=== PATIENT | female | born 1975 | race African-American/Black ===

== ENCOUNTER 2016-04-25 13:53 | Emergency (ER) | payer OTHER ==
--- NOTE | 2016-04-25 14:32 | ER Document Report ---
ED Medical Screen (RME) - General Stated Complaint: VOMITING,EXTREME NOSE BLEEDS Mode of Arrival: Ambulatory Information source: Patient Notes: Patient c/o of heart palpitations since Monday. Pt reports n/v today with lower pelvic pressure. Pt with nosebleed early this week and today. Patient denies any fever. Patient is currently 16 weeks . hx: Hypertension TRAVEL OUTSIDE OF THE [place] IN LAST 30 DAYS: No - Related Data Allergies/Adverse Reactions: No Known Allergies Allergy (Verified 12/25/15 20:28) Past Medical History - Past Medical History Cardiac Medical History: Reports: Hx Hypertension - medicated Denies: Hx Heart Attack Pulmonary Medical History: Reports: Hx Asthma - seasonal allergies can cause wheezing. Neurological Medical History: Denies: Hx Cerebrovascular Accident, Hx Seizures GI Medical History: Denies: Hx Hepatitis, Hx Hiatal Hernia, Hx Ulcer Infectious Medical History: Denies: Hx Hepatitis Past Surgical History: Denies: Hx Hysterectomy, Hx Mastectomy, Hx Open Heart Surgery, Hx Pacemaker - Immunizations Hx Diphtheria, Pertussis, Tetanus Vaccination: Yes Physical Exam - Vital signs Vitals: Temp Pulse Resp BP Pulse Ox 98.0 F 92 20 137/83 H 100 04/25/16 14:28 04/25/16 14:28 04/25/16 14:28 04/25/16 14:28 04/25/16 14:28 - Abdominal Tenderness: Tender - Lower pelvic Course - Vital Signs Vital signs: Temp Pulse Resp BP Pulse Ox 98.0 F 92 20 137/83 H 100 04/25/16 14:28 04/25/16 14:28 04/25/16 14:28 04/25/16 14:28 04/25/16 14:28
[2016-04-25 15:16] LABS: ABSOLUTE BASOPHILS # (AUTO) 0.1 10^3/uL (0.0-0.2); ABSOLUTE EOSINOPHILS # (AUTO) 0.3 10^3/uL (0.0-0.6); ABSOLUTE LYMPHOCYTES (AUTO) 2.2 10^3/uL (0.5-4.7); ABSOLUTE MONOCYTES (AUTO) 0.7 10^3/uL (0.1-1.4); ABSOLUTE NEUT (AUTO) 7.2 10^3/uL (1.7-8.2); BASOPHILS % (AUTO) 0.6 % (0-2); EOSINOPHILS % (AUTO) 2.5 % (0-6); HEMATOCRIT 38.3 % (36.0-47.0); HEMOGLOBIN 12.3 g/dL (12.0-15.5); HGB HCT DIFFERENCE -1.4; LYMPHOCYTES % (AUTO) 21.2 % (13-45); MEAN CORPUSCULAR HEMOGLOBIN 29.5 pg (27.0-33.4); MEAN CORPUSCULAR HGB CONC 32.2 g/dL (32.0-36.0); MEAN CORPUSCULAR VOLUME 92 fl (80-97); MONOCYTES % (AUTO) 6.8 % (3-13); RED BLOOD COUNT 4.18 10^6/uL (3.72-5.28); RED CELL DISTRIBUTION WIDTH 12.5 % (11.5-14.0); SEGMENTED NEUTROPHILS % (AUTO) 68.9 % (42-78); WHITE BLOOD COUNT 10.5 10^3/uL (4.0-10.5)
[2016-04-25 15:22] LABS: APPEARANCE,URINE SLIGHTLY-CLOUDY; BILIRUBIN,URINE NEGATIVE (NEGATIVE); GLUCOSE, URINE 50 mg/dL (NEGATIVE); KETONES,URINE NEGATIVE (NEGATIVE); LEUKOCYTE ESTERASE,URINE NEGATIVE (NEGATIVE); NITRITE,URINE NEGATIVE (NEGATIVE); PROTEIN,URINE NEGATIVE (NEGATIVE); URINE SPECIFIC GRAVITY 1.023
[2016-04-25 15:35] LABS: ALANINE AMINOTRANSFERASE 16 U/L (9-52); ALBUMIN 3.7 g/dL (3.5-5.0); ALKALINE PHOSPHATASE 47 U/L (38-126); ANION GAP 9 (5-19); ASPARTATE AMINO TRANSFERASE 17 U/L (14-36); BILIRUBIN,TOTAL 0.4 mg/dL (0.2-1.3); BLOOD UREA NITROGEN 7 mg/dL (7-20); CALCIUM 9.5 mg/dL (8.4-10.2); CARBON DIOXIDE 25 mmol/L (22-30); CHLORIDE 104 mmol/L (98-107); CREATININE RESULT 0.63 mg/dL (0.52-1.25); GLUCOSE 81 mg/dL (75-110); LIPASE 71.9 U/L (23-300); POTASSIUM 4.4 mmol/L (3.6-5.0); SODIUM 138.3 mmol/L (137-145); TOTAL PROTEIN 6.7 g/dL (6.3-8.2)
--- NOTE | 2016-04-25 16:44 | ER Document Report ---
ED GI/ - General Chief Complaint: Palpitations Stated Complaint: VOMITING,EXTREME NOSE BLEEDS Mode of Arrival: Ambulatory Information source: Patient Notes: Patient is currently 16 weeks . Patient reports having palpitations off and on since Monday. Patient states with previous she did have palpitation and was followed up by the talent assistant but nothing was found to be abnormal. Patient does report nausea and vomiting, times one episode today. Patient denies any diarrhea, fever, urinary symptoms or vaginal bleeding. Patient does complain of lower pelvic pain today. Patient also reports having a nosebleed earlier this week and then again today. Patient does report increase in sinus congestion recently. TRAVEL OUTSIDE OF THE [place] IN LAST 30 DAYS: No - HPI Patient complains to provider of: Pelvic pain, , Vomiting. No: Vaginal pain Onset: This morning Timing/Duration: Gradual Quality of pain: Cramping Pain Level: 3 Location: Pelvis Vaginal bleeding (Compared to normal period): None Menstrual period history: Sexual history: Active Associated symptoms: Nausea, Vomiting. 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 Neurological Medical History: Denies: Hx Cerebrovascular Accident, Hx Seizures Renal/ Medical History: Denies: Hx Peritoneal Dialysis GI Medical History: Denies: Hx Hepatitis, Hx Hiatal Hernia, Hx Ulcer Infectious Medical History: Denies: Hx Hepatitis Past Surgical History: Reports: Hx Section, Hx Cholecystectomy, Hx Myringotomy - Immunizations Hx Diphtheria, Pertussis, Tetanus Vaccination: Yes Review of Systems - Review of Systems Constitutional: No symptoms reported. denies: Fever EENT: Nose congestion, Other - Nosebleed earlier this week and then again today Cardiovascular: Palpitations. denies: Chest pain, Syncope, Dizziness Respiratory: No symptoms reported. denies: Cough, Short of breath Gastrointestinal: Abdominal pain, Nausea, Vomiting. denies: Diarrhea Genitourinary: No symptoms reported. denies: Dysuria, Flank pain Female Genitourinary: . denies: Vaginal discharge, Vaginal bleeding Musculoskeletal: No symptoms reported. denies: Back pain Skin: No symptoms reported Hematologic/Lymphatic: No symptoms reported Neurological/Psychological: No symptoms reported. denies: Headaches Physical Exam - Vital signs Vitals: Temp Pulse Resp BP Pulse Ox 98.0 F 92 20 137/83 H 100 04/25/16 14:28 04/25/16 14:28 04/25/16 14:28 04/25/16 14:28 04/25/16 14:28 - General General appearance: Appears well, Alert In distress: None - HEENT Head: Normocephalic, Atraumatic Eyes: Normal Ears: Normal External canal: Normal Tympanic membrane: Other - Tympanostomy tube right TM Sinus: Normal Nasal: Swelling, Clear rhinorrhea Mouth/Lips: Normal Mucous membranes: Normal Pharynx: Normal Neck: Normal, Supple. No: Lymphadenopathy, Meningismus - Respiratory Respiratory status: No respiratory distress Chest status: Nontender Breath sounds: Normal. No: Rales, Rhonchi, Stridor, Wheezing Chest palpation: Normal - Cardiovascular Rhythm: Regular Heart sounds: S1 appreciated, S2 appreciated Murmur: No - Abdominal Inspection: Normal, Gravid female Distension: No distension Bowel sounds: Normal Tenderness: Tender - Lower pelvic tenderness - Back Back: Normal, Nontender. No: CVA tenderness, Vertebra tenderness - Extremities General upper extremity: Normal inspection, Normal strength General lower extremity: Normal inspection, Normal strength - Neurological Neuro grossly intact: Yes Cognition: Normal Orientation: AAOx4 Constantia Coma Scale Eye Opening: Spontaneous Jazmyn Coma Scale Verbal: Oriented Jazmyn Coma Scale Motor: Obeys Commands Jazmyn Coma Scale Total: 15 - Psychological Associated symptoms: Normal affect, Normal mood - Skin Skin Temperature: Warm Skin Moisture: Dry Skin Color: Normal Course - Re-evaluation Re-evalutation: 04/25/16 18:47 Patient reports that after eating a wrap same which she vomited the meal. Patient states that she has only been vomiting after meals. Medication ordered. 04/25/16 20:11 Patient tolerating oral fluids as well as crackers without vomiting. Patient feeling better. Patient denies any palpitations at present. Patient advised to follow-up with her talent assistant that she saw on the past for this complaint with her previous . Patient denies any chest pain, shortness of breath, or cough. Patient with palpitations off and on over the past week. Patient does have a history of palpitations with previous . Consulted with Dr. Steel who agrees with plan for deferring CTA imaging at this time and have patient follow-up with her talent assistant for recheck. Discussed worsening signs or symptoms that patient should return immediately for. Patient verbalized understanding and agrees with plan of care. - Vital Signs Vital signs: Temp Pulse Resp BP Pulse Ox 98.0 F 92 20 137/83 H 100 04/25/16 14:28 04/25/16 14:28 04/25/16 14:28 04/25/16 14:28 04/25/16 14:28 - Laboratory Result Diagrams: 04/25/16 15:00 04/25/16 15:00 Laboratory results interpreted by me: 04/25/16 04/25/16 15:00 15:00 Beta HCG, Quant 82666.00 H Urine Glucose (UA) 50 H Urine Urobilinogen 2.0 H Urine Ascorbic Acid 40 H 04/25/16 20:00 Labs- Entire Visit 04/25/16 04/25/16 04/25/16 15:00 15:00 15:00 WBC 10.5 RBC 4.18 Hgb 12.3 Hct 38.3 MCV 92 MCH 29.5 MCHC 32.2 RDW 12.5 Plt Count 304 Seg Neutrophils % 68.9 Lymphocytes % 21.2 Monocytes % 6.8 Eosinophils % 2.5 Basophils % 0.6 Absolute Neutrophils 7.2 Absolute Lymphocytes 2.2 Absolute Monocytes 0.7 Absolute Eosinophils 0.3 Absolute Basophils 0.1 Sodium 138.3 Potassium 4.4 Chloride 104 Carbon Dioxide 25 Anion Gap 9 BUN 7 Creatinine 0.63 Est GFR ( Amer) > 60 Est GFR (Non-Af Amer) > 60 Glucose 81 Calcium 9.5 Total Bilirubin 0.4 Direct Bilirubin 0.0 AST 17 ALT 16 Alkaline Phosphatase 47 Total Protein 6.7 Albumin 3.7 Lipase 71.9 TSH Beta HCG, Quant 31693.00 H Total Beta HCG POSITIVE Urine Color YELLOW Urine Appearance SLIGHTLY-CLOUDY Urine pH 5.0 Ur Specific [place] 1.023 Urine Protein NEGATIVE Urine Glucose (UA) 50 H Urine Ketones NEGATIVE Urine Blood NEGATIVE Urine Nitrite NEGATIVE Urine Bilirubin NEGATIVE Urine Urobilinogen 2.0 H Ur Leukocyte Esterase NEGATIVE Urine WBC (Auto) 2 Urine RBC (Auto) 1 Squamous Epi Cells Auto 4 Urine Mucus (Auto) OCC Urine Ascorbic Acid 40 H 04/25/16 15:00 WBC RBC Hgb Hct MCV MCH MCHC RDW Plt Count Seg Neutrophils % Lymphocytes % Monocytes % Eosinophils % Basophils % Absolute Neutrophils Absolute Lymphocytes Absolute Monocytes Absolute Eosinophils Absolute Basophils Sodium Potassium Chloride Carbon Dioxide Anion Gap BUN Creatinine Est GFR ( Amer) Est GFR (Non-Af Amer) Glucose Calcium Total Bilirubin Direct Bilirubin AST ALT Alkaline Phosphatase Total Protein Albumin Lipase TSH 1.04 Beta HCG, Quant Total Beta HCG Urine Color Urine Appearance Urine pH Ur Specific [place] Urine Protein Urine Glucose (UA) Urine Ketones Urine Blood Urine Nitrite Urine Bilirubin Urine Urobilinogen Ur Leukocyte Esterase Urine WBC (Auto) Urine RBC (Auto) Squamous Epi Cells Auto Urine Mucus (Auto) Urine Ascorbic Acid - Diagnostic Test Radiology reviewed: Reports reviewed Discharge - Discharge Clinical Impression: Sinus congestion, Palpitations Abdominal pain Qualifiers: Abdominal location: lower abdomen, unspecified Qualified Code(s): R10.30 - Lower abdominal pain, unspecified Vomiting Qualifiers: Vomiting type: unspecified Vomiting Intractability: non-intractable Nausea presence: without nausea Qualified Code(s): R11.11 - Vomiting without nausea Condition: Stable Disposition: HOME, SELF-CARE Instructions: Abdominal Pain ([facility]), Vomiting ([facility]), Intravenous (IV) Fluids ( [facility]), Use of Diphenhydramine, Pelvic Pain in and Round Ligament Pain ( [facility]), Palpitations (Irregular or Rapid Heartrate) ([facility]), Nosebleed Instructions ([facility]) Additional Instructions: Return immediately for any new or worsening symptoms Followup with your OPENER care provider, call tomorrow to make a followup appointment Follow up with Dr. Mendoza for recheck, call tomorrow for an appointment You can take Benadryl [id number] every 6 hours as directed to help with your nausea symptoms. This may also help with your nasal congestion. Forms: Return to Work Referrals: Nancy Camarillo PA [Primary Care Provider] - Follow up as needed [facility] [Provider Group] - Follow up tomorrow DECLAN MENDOZA MD [ACTIVE STAFF] - Follow up tomorrow
--- NOTE | 2016-04-25 18:03 | EKG REPORT ---
SEVERITY:- BORDERLINE ECG - SINUS RHYTHM BORDERLINE T ABNORMALITIES, INFERIOR LEADS : Confirmed by: Mane Maldonado MD 25-Apr-2016 18:02:58
[2016-04-25] MEDS ORDERED: DIPHENHYDRAMINE HCL 50 MG/ML VIAL IV ONE (18:46)
[2016-04-25] MEDS ORDERED: NORMAL SALINE 1000 ML 1,000 ML IV ONE (18:46)
[2016-04-25 21:03] VITALS: BP 126/70
== END 2016-04-25 21:02 | disposition home or self-care (01) ==
LOC: ER 13:53
DX: O26.892 Other specified pregnancy related conditions, second trimester (principal); R00.2 Palpitations; R04.0 Epistaxis; R09.81 Nasal congestion; R10.2 Pelvic and perineal pain; O21.9 Vomiting of pregnancy, unspecified; O16.2 Unspecified maternal hypertension, second trimester; O99.512 Diseases of the respiratory system complicating pregnancy, second trimester; J34.89 Other specified disorders of nose and nasal sinuses; J45.909 Unspecified asthma, uncomplicated; Z3A.16 16 weeks gestation of pregnancy
CPT/HCPCS: 93005; 99285; 96360; 36415; 84702; 83690; 84443; 85025; 80053; 81001; 76805; 93010; J1200; J7030

== ENCOUNTER 2016-05-03 19:07 | Inpatient (IN) | payer OTHER ==
[2016-05-03 19:57] LABS: APPEARANCE,URINE SLIGHTLY-CLOUDY; BILIRUBIN,URINE NEGATIVE (NEGATIVE); GLUCOSE, URINE NEGATIVE (NEGATIVE); KETONES,URINE TRACE mg/dL (NEGATIVE); LEUKOCYTE ESTERASE,URINE TRACE (NEGATIVE); NITRITE,URINE NEGATIVE (NEGATIVE); PROTEIN,URINE NEGATIVE (NEGATIVE); URINE SPECIFIC GRAVITY 1.024
[2016-05-03 20:23] LABS: ABSOLUTE BASOPHILS # (AUTO) 0.1 10^3/uL (0.0-0.2); ABSOLUTE EOSINOPHILS # (AUTO) 0.3 10^3/uL (0.0-0.6); ABSOLUTE LYMPHOCYTES (AUTO) 2.1 10^3/uL (0.5-4.7); ABSOLUTE MONOCYTES (AUTO) 0.6 10^3/uL (0.1-1.4); ABSOLUTE NEUT (AUTO) 8.4 10^3/uL (1.7-8.2); BASOPHILS % (AUTO) 0.6 % (0-2); HEMOGLOBIN 12.7 g/dL (12.0-15.5); HGB HCT DIFFERENCE -0.9; LYMPHOCYTES % (AUTO) 18.3 % (13-45); MEAN CORPUSCULAR HEMOGLOBIN 29.6 pg (27.0-33.4); MEAN CORPUSCULAR HGB CONC 32.5 g/dL (32.0-36.0); MEAN CORPUSCULAR VOLUME 91 fl (80-97); MONOCYTES % (AUTO) 5.2 % (3-13); RED BLOOD COUNT 4.29 10^6/uL (3.72-5.28); RED CELL DISTRIBUTION WIDTH 12.7 % (11.5-14.0); SEGMENTED NEUTROPHILS % (AUTO) 72.9 % (42-78); WHITE BLOOD COUNT 11.5 10^3/uL (4.0-10.5)
[2016-05-03] MEDS: IBUPROFEN 800 MG TABLET PO SCH (21:04)
[2016-05-03] MEDS: METHYLDOPA 250 MG TABLET PO SCH (21:06)
[2016-05-04] MEDS: IBUPROFEN 800 MG TABLET PO SCH ×3 (05:38→22:00)
[2016-05-04] MEDS: METHYLDOPA 250 MG TABLET PO SCH ×2 (09:39→22:00)
[2016-05-04] MEDS ORDERED: POLYETHYLENE GLYCOL 3350 POWDER 17 GM/1 PACKET PO PRN (10:00)
[2016-05-04 11:00] LABS: APPEARANCE,URINE SLIGHTLY-CLOUDY; BILIRUBIN,URINE NEGATIVE (NEGATIVE); GLUCOSE, URINE NEGATIVE (NEGATIVE); KETONES,URINE NEGATIVE (NEGATIVE); LEUKOCYTE ESTERASE,URINE TRACE (NEGATIVE); NITRITE,URINE NEGATIVE (NEGATIVE); PROTEIN,URINE NEGATIVE (NEGATIVE); URINE SPECIFIC GRAVITY 1.019; UROBILINOGEN,URINE NEGATIVE mg/dL (<2.0)
[2016-05-04] MEDS ORDERED: OXYCODONE HCL IR 5 MG TABLET PO PRN ×2 (17:43)
[2016-05-04] MEDS ORDERED: ZOLPIDEM TARTRATE 5 MG TABLET PO PRN (17:44)
[2016-05-05 06:27] LABS: GLUCOSE,FASTING 94 mg/dL (<110)
[2016-05-05] MEDS: IBUPROFEN 800 MG TABLET PO SCH ×2 (06:45→17:16)
[2016-05-05] MEDS: METHYLDOPA 250 MG TABLET PO SCH ×2 (11:06→21:53)
[2016-05-06] MEDS: IBUPROFEN 800 MG TABLET PO SCH ×3 (04:47→14:07)
[2016-05-06] MEDS: METHYLDOPA 250 MG TABLET PO SCH (09:56)
[2016-05-06 13:28] VITALS: BP 130/68
== END 2016-05-06 13:54 | disposition home or self-care (01) | DRG 778 ==
LOC: 2N 19:07 → OBSVTOIN 05-04 08:50
PROVIDERS: ADMIT Obstetrics & Gynecology; ATTEND Obstetrics & Gynecology
PROC: 4A1HXCZ Monitoring of Products of Conception, Cardiac Rate, External Approach (ICD-10-PCS; principal; 2016-05-03)
DX: O60.02 Preterm labor without delivery, second trimester (principal); O26.872 Cervical shortening, second trimester; Z68.42 Body mass index [BMI] 45.0-49.9, adult; O10.912 Unspecified pre-existing hypertension complicating pregnancy, second trimester; E66.01 Morbid (severe) obesity due to excess calories; Z3A.17 17 weeks gestation of pregnancy
CPT/HCPCS: 36415; 76815; 81001; 82951; 82962; 85025; 87086; 87088; 87186; G0378; G0379; J3490

== ENCOUNTER 2016-08-11 10:47 | Outpatient (CLI) | payer OTHER ==
[2016-08-11] MEDS ORDERED: RINGERS SOLUTION,LACTATED 1,000 ML IV ONE (11:22)
[2016-08-11] MEDS ORDERED: TERBUTALINE SULFATE INJ/PF 1 MG/1 ML SDV SUBCUT ONE (11:22)
[2016-08-11] MEDS ORDERED: TERBUTALINE SULFATE INJ/PF 1 MG/1 ML SDV ONE (11:23)
[2016-08-11 11:37] LABS: APPEARANCE,URINE CLOUDY; BILIRUBIN,URINE NEGATIVE (NEGATIVE); GLUCOSE, URINE 50 mg/dL (NEGATIVE); KETONES,URINE TRACE mg/dL (NEGATIVE); LEUKOCYTE ESTERASE,URINE MODERATE (NEGATIVE); NITRITE,URINE NEGATIVE (NEGATIVE); PROTEIN,URINE 30 mg/dL (NEGATIVE); URINE SPECIFIC GRAVITY 1.028
[2016-08-11 11:48] LABS: URINE BARBITURATES SCREEN NEGATIVE; URINE METHADONE SCREEN NEGATIVE; URINE OPIATES LOW NEGATIVE; URINE PHENCYCLIDINE SCREEN NEGATIVE
[2016-08-11] MEDS ORDERED: ACETAMINOPHEN 325 MG TABLET ONE (13:03)
== END 2016-08-11 14:16 | disposition home or self-care (01) ==
LOC: LC 10:47
PROVIDERS: ATTEND Obstetrics & Gynecology
PROC: 4A1HXCZ Monitoring of Products of Conception, Cardiac Rate, External Approach (ICD-10-PCS; principal; 2016-08-11)
DX: O09.523 Supervision of elderly multigravida, third trimester (principal); Z3A.32 32 weeks gestation of pregnancy
CPT/HCPCS: 59025; 81001; 80307; J3105

== ENCOUNTER 2016-08-31 04:22 | Outpatient (CLI) | payer OTHER ==
--- NOTE | 2016-08-31 04:32 | Non Stress Test Report ---
Non Stress Test Datetime Report Generated by CPN: 08/31/2016 04:31 DEMOGRAPHIC EGA NST: 32.0 INDICATION Indication for Study: Ordered by Provider Indication for Study (NST) Other: lc VITAL SIGNS Temperature - NST: 98.8 Pulse - NST: 102 RESP - NST: 16 NBPSYS NST: 128 NBPDIA NST: 67 MONITORING Monitor Explained: Monitor Explained; Test Explained; Patient Verbalized Understanding Time on Monitor: 08/11/2016 11:43 Time off Monitor: 08/11/2016 14:02 NST Duration: 139 NST INTERVENTIONS NST Interventions: PO Hydration; IV Fluids; Reposition Patient Physician Notified NST: Dr. Russell BABY A: [id number] BABY A Movement : Present Contraction Frequency : 9+ FHR Baseline : 125 Accelerations : 15X15 Decelerations : None Variability : Moderate 6-25bpm NST Review: Meets Criteria for Reactive NST NST Review and Verified By : Jordon Barrow RN NST Results: Reactive NST REPORT Report Trigger: Send Report
[2016-08-31] MEDS ORDERED: RINGERS SOLUTION,LACTATED 1,000 ML IV ONE (05:45)
[2016-08-31 06:13] LABS: APPEARANCE,URINE SLIGHTLY-CLOUDY; BILIRUBIN,URINE NEGATIVE (NEGATIVE); GLUCOSE, URINE NEGATIVE (NEGATIVE); KETONES,URINE 20 mg/dL (NEGATIVE); LEUKOCYTE ESTERASE,URINE TRACE (NEGATIVE); NITRITE,URINE NEGATIVE (NEGATIVE); PROTEIN,URINE NEGATIVE (NEGATIVE); URINE SPECIFIC GRAVITY 1.014
[2016-08-31 06:22] LABS: URINE BARBITURATES SCREEN NEGATIVE; URINE METHADONE SCREEN NEGATIVE; URINE OPIATES LOW NEGATIVE; URINE PHENCYCLIDINE SCREEN NEGATIVE
--- NOTE | 2016-08-31 08:13 | Non Stress Test Report ---
Non Stress Test Datetime Report Generated by CPN: 08/31/2016 08:13 DEMOGRAPHIC EGA NST: 34.6 INDICATION Indication for Study: Other Indication for Study (NST) Other: LABOR CHECK MONITORING Monitor Explained: Monitor Explained; Test Explained; Patient Verbalized Understanding Time on Monitor: 08/31/2016 04:40 Time off Monitor: 08/31/2016 07:40 NST Duration: 180 NST INTERVENTIONS NST Interventions: PO Hydration; Reposition Patient BABY A Movement : Present Contraction Frequency : IRREG FHR Baseline : 125 Accelerations : 15X15 Decelerations : None Variability : Moderate 6-25bpm NST Review: Meets Criteria for Reactive NST NST Review and Verified By : Jordon Diaz RN NST Results: Reactive NST REPORT Report Trigger: Send Report
== END 2016-08-31 07:50 | disposition home or self-care (01) ==
LOC: LC 04:22
PROVIDERS: ATTEND Obstetrics & Gynecology
PROC: 4A1HXCZ Monitoring of Products of Conception, Cardiac Rate, External Approach (ICD-10-PCS; principal; 2016-08-31)
DX: O47.03 False labor before 37 completed weeks of gestation, third trimester (principal); O09.523 Supervision of elderly multigravida, third trimester; Z3A.34 34 weeks gestation of pregnancy
CPT/HCPCS: 59025; 80307; 81001

== ENCOUNTER 2016-09-02 09:54 | Outpatient (CLI) | payer OTHER ==
--- NOTE | 2016-09-02 11:11 | Non Stress Test Report ---
Non Stress Test Datetime Report Generated by CPN: 09/02/2016 11:11 DEMOGRAPHIC EGA NST: 35.1 INDICATION Indication for Study: Ordered by Provider VITAL SIGNS Temperature - NST: 98.0 Pulse - NST: 80 RESP - NST: 16 NBPSYS NST: 112 NBPDIA NST: 76 MONITORING Monitor Explained: Monitor Explained; Test Explained; Patient Verbalized Understanding Time on Monitor: 09/02/2016 10:12 Time off Monitor: 09/02/2016 10:40 NST Duration: 28 NST INTERVENTIONS NST Interventions: None Physician Notified NST: Dr Russell BABY A Movement : Present Contraction Frequency : none FHR Baseline : 130 Accelerations : 15X15 Decelerations : None Variability : Moderate 6-25bpm NST Review: Meets Criteria for Reactive NST NST Review and Verified By : Sandra Gipson RNC NST Results: Reactive NST REPORT Report Trigger: Send Report
== END 2016-09-02 11:16 | disposition home or self-care (01) ==
LOC: LC 09:54
PROVIDERS: ATTEND Obstetrics & Gynecology
PROC: 4A1HXCZ Monitoring of Products of Conception, Cardiac Rate, External Approach (ICD-10-PCS; principal; 2016-09-02)
DX: O47.03 False labor before 37 completed weeks of gestation, third trimester (principal); O09.523 Supervision of elderly multigravida, third trimester; Z3A.35 35 weeks gestation of pregnancy
CPT/HCPCS: 59025

== ENCOUNTER 2016-09-15 19:07 | Inpatient (IN) | payer OTHER ==
[2016-09-15 19:51] LABS: APPEARANCE,URINE CLEAR
[2016-09-15 19:52] LABS: BILIRUBIN,URINE NEGATIVE (NEGATIVE); GLUCOSE, URINE NEGATIVE (NEGATIVE); KETONES,URINE NEGATIVE (NEGATIVE); LEUKOCYTE ESTERASE,URINE SMALL (NEGATIVE); NITRITE,URINE NEGATIVE (NEGATIVE); PROTEIN,URINE NEGATIVE (NEGATIVE); URINE SPECIFIC GRAVITY 1.012; UROBILINOGEN,URINE NEGATIVE mg/dL (<2.0)
[2016-09-15 20:10] LABS: URINE BARBITURATES SCREEN NEGATIVE; URINE METHADONE SCREEN NEGATIVE; URINE OPIATES LOW NEGATIVE; URINE PHENCYCLIDINE SCREEN NEGATIVE
[2016-09-15] MEDS: RINGERS SOLUTION,LACTATED 1,000 ML IV PRN ×3 (20:19→23:01)
[2016-09-15] MEDS ORDERED: CEFAZOLIN 2 GM/D5W RTU 2 GM/50 ML RTUPB IV ONE (22:55)
[2016-09-15] MEDS ORDERED: CITRIC ACID/SODIUM CITRATE ORAL SOLN 15 ML UDCUP ONE (23:04)
[2016-09-15] MEDS ORDERED: CEFAZOLIN 2 GM/D5W RTU 2 GM/50 ML RTUPB IV PRN ×2 (23:21→23:23)
[2016-09-15 23:22] LABS: ABSOLUTE BASOPHILS # (AUTO) 0.1 10^3/uL (0.0-0.2); ABSOLUTE EOSINOPHILS # (AUTO) 0.4 10^3/uL (0.0-0.6); ABSOLUTE LYMPHOCYTES (AUTO) 1.9 10^3/uL (0.5-4.7); ABSOLUTE MONOCYTES (AUTO) 0.6 10^3/uL (0.1-1.4); ABSOLUTE NEUT (AUTO) 6.4 10^3/uL (1.7-8.2); BASOPHILS % (AUTO) 0.7 % (0-2); EOSINOPHILS % (AUTO) 3.9 % (0-6); HEMATOCRIT 33.7 % (36.0-47.0); HGB HCT DIFFERENCE -0.7; LYMPHOCYTES % (AUTO) 20.1 % (13-45); MEAN CORPUSCULAR HEMOGLOBIN 29.7 pg (27.0-33.4); MEAN CORPUSCULAR HGB CONC 32.7 g/dL (32.0-36.0); MEAN CORPUSCULAR VOLUME 91 fl (80-97); MONOCYTES % (AUTO) 6.9 % (3-13); RED BLOOD COUNT 3.72 10^6/uL (3.72-5.28); RED CELL DISTRIBUTION WIDTH 13.9 % (11.5-14.0); SEGMENTED NEUTROPHILS % (AUTO) 68.4 % (42-78); WHITE BLOOD COUNT 9.4 10^3/uL (4.0-10.5)
[2016-09-15] MEDS ORDERED: CEFAZOLIN SODIUM 2 GM in DEXTROSE 5%-WATER 50 ML IV PRN (23:30)
[2016-09-15] MEDS ORDERED: OXYTOCIN 10 UNIT/ML VIAL ONE (23:42)
[2016-09-15] MEDS ORDERED: OXYTOCIN/NORMAL SALINE 20 UNIT/1,000 ML RTUINJ ONE (23:42)
[2016-09-15] MEDS ORDERED: ONDANSETRON HCL INJ/PF 4 MG/2 ML SDV ONE (23:42)
[2016-09-16] MEDS ORDERED: MIDAZOLAM 2 MG/2 ML INJ ONE (00:29)
[2016-09-16] MEDS ORDERED: OXYTOCIN/NORMAL SALINE 1,000 ML IV PRN (01:18)
[2016-09-16] MEDS ORDERED: ACETAMINOPHEN 325 MG TABLET PO PRN (01:18)
[2016-09-16] MEDS ORDERED: MEASLES,MUMPS&RUBELLA VACC/PF 0.5 ML VIAL SUBCUT PRN (01:18)
[2016-09-16] MEDS ORDERED: OXYCODONE-ACETAMINOPHEN 5-325 MG TABLET PO PRN (01:18)
[2016-09-16] MEDS ORDERED: PROMETHAZINE HCL INJ 25 MG/1 ML VIAL IV PRN (01:18)
[2016-09-16] MEDS ORDERED: ACETAMINOPHEN 100 ML IV PRN (01:18)
[2016-09-16] MEDS ORDERED: DIPH/PERTUSS(ACELL)/TETANUS VAC/PF 0.5 ML SYR (>=10YO) IM PRN (01:18)
[2016-09-16] MEDS ORDERED: RINGERS SOLUTION,LACTATED 1,000 ML IV PRN (01:21)
[2016-09-16] MEDS ORDERED: KETOROLAC TROMETHAMINE INJ/PF 30 MG/1 ML SDV ONE (01:24)
[2016-09-16] MEDS ORDERED: ACETAMINOPHEN 100 ML IV ONE (01:24)
[2016-09-16] MEDS ORDERED: FENTANYL CITRATE INJ/PF 100 MCG/2 ML AMPUL ONE (02:53)
--- NOTE | 2016-09-16 03:06 | Admission Physical ---
Datetime Report Generated by CPN: 09/16/2016 03:06 CURRENT ADMISSION Chief Complaint: Uterine Contractions Indication for Induction: Not Applicable Admit Impression- Other: Cerclage Admit Plan: Admit to Unit; Initiate Section Protocol ALLERGIES Medication Allergies: No Medication Allergies: No Known Allergies (09/15/2016) Medication Allergies: No Known Allergies (09/13/2016) Medication Allergies: No Known Allergies (04/25/2016) Latex: No Latex Allergies OBSTETRICAL HISTORY EDC: 10/06/2016 00:00 : 3 Para: 1 Term: 0 : 0 SAB: 0 IAB: 1 Ectopic: 0 Livin Cesareans: 1 VBACs: 0 Multiple Births: 0 Gestational Diabetes: Yes Rh Sensitization: No Incompetent Cervix: Yes MANJU: No Infertility: No ART Treatment: No Uterine Anomaly: No IUGR: No Hx Previous C/S: Yes Macrosomia: No Hx Loss/Stillborn: No PIH: No Hx : No Placenta Previa/Abruption: No Depression/PP Depression: No PTL/PROM: No Post Hemorrhage: No Current Procedures: Ultrasound; NST Obstetrical History Comments: G1- EAB G2- 2009 failure to progress/ distress, 39 week primary G3- current - short cervix, cerclage, CHTN, GDM SEE RECORDS Alcohol: No Marijuana : No Cocaine: No Other Illicit Drugs: No Cigarettes: Former Smoker. 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 Surgery: Yes Heart Disease: No Hosp/Surgery: Yes Autoimmune Disorder: No Anesthetic Complications: No Kidney Disease: No Abnormal Pap Smear: No Neuro/Epilepsy: No Psychiatric Disorders: No Other Medical Diseases: No Hepatitis/Liver Disease: No Significant Family History: No Varicosities/Phlebitis: No Trauma/Violence : No Thyroid Dysfunction: No Medical History Comments: 2008 INFECTIOUS HISTORY Gonorrhea: No Genital Herpes: No Chlamydia: No Tuberculosis: No Syphilis: No Hepatitis: No HIV/AIDS Exposure: No Rash or Viral Illness: No HPV: Yes Infectious History Comments: HPV 1999 PHYSICAL EXAM General: Normal HEENT: Normal Neurologic: Normal Thyroid: Deferred Heart: Normal Lungs: Normal Breast: Deferred Back: Normal Abdomen: Normal Genitourinary Exam: Normal Extremities: Normal DTRs: Normal Pelvic Type: Adequate Vital Signs: Reviewed; Within Normal Limits VAGINAL EXAM Dilatation: 1 Effacement: 80 Station: 0 MEMBRANES Membranes: Intact FETUS A EGA: 37.0 Monitoring: External US FHR- Baseline: 140 Variability: Moderate 6-25bpm Accelerations: 15X15 Decelerations: None FHR Category: Category I Admit Comment: Will admit for Repeat C/s and Cerclage removal PLANS FOR LABOR AND DELIVERY Labor and Delivery: None Pain Management: Spinal Feeding Preference: Breast Benefit of Breast Feed Discussed: Yes Circumcision: N/A INFORMED CONSENT Signature: with User ID: [email or web address]
--- NOTE | 2016-09-16 03:56 | Delivery Summary ---
Del Sum A-C Datetime Report Generated by CPN: 09/16/2016 03:55 DELIVERY PERSONNEL DELIVERY PERSONNEL: [id number];[phone];[id number] Delivery Doctor:: Kyle Russell DO Anesthesiologist:: Warner Stephens MD Labor and Delivery Nurse:: Kera Jay RNmedical research scientist Nurse:: Deborah Mcwilliams RN Neonatal Nurse Practitioner:: NELIA Oliver Nursery Nurse:: Sonia Posey RN Intertype Operator/SALES TRAINING MANAGER: Poppy Rinaldi, ST Intertype Operator/SALES TRAINING MANAGER: Sherly Semar, CRAY FISHING HAND MATERNAL INFORMATION Delivery Anesthesia: Spinal Medications After Delivery: Pitocin Bolus-Please Comment Estimated Blood Loss (ml): 700 Maternal Complications: None LABOR SUMMARY EDC: 10/06/2016 00:00 No. Babies in Womb: 1 Attempted: No Labor Anesthesia: None LABOR INFORMATION Reason for Induction: Not Applicable Onset of Labor: 10/15/2016 13:00 Group B Beta Strep: unknown Steroids Given: None Reason Steroids Not Administered: Not Applicable MEMBRANES Membranes Rupture Method: Artificial Rupture of Membranes: 09/16/2016 00:14 Length of Rupture (hr): 0.00 Amniotic Fluid Color: Clear Amniotic Fluid Amount: Moderate Amniotic Fluid Odor: None STAGES OF LABOR Stage 3 hr: 0 Stage 3 min: 1 Total Time in Labor hr: -708 Total Time in Labor min: -45 VAGINAL DELIVERY Episiotomy: None Laceration Extension: N/A Laceration Type: None Laceration Repair: Not Applicable Sharps Count Correct: N/A CSECTION DELIVERY Primary Indication: Other Other Primary Indication: Repeat Secondary Indication: Other Other Secondary Indication: Labor CSection Urgency: Non-Scheduled CSection Incidence: Repeat Labor: Labor Elective: N/A CSection Incision: Lower Uterine Transverse BABY A INFORMATION Delivery Date/Time: 09/16/2016 00:14 Method of Delivery: Born in Route : No : N/A Forceps: N/A Vacuum Extraction: Successful Shoulder Dystocia : No PRESENTATION/POSITION BABY A Presentation: Cephalic Cephalic Presentation: Vertex Breech Presentation: N/A PLACENTA INFORMATION BABY A Placenta Delivery Time : 09/16/2016 00:15 Placenta Method of Delivery: Manual Removal Placenta Status: Delivered SCORES BABY A Heart Rate 1 min: >100 bpm Resp Effort 1 min: Good Cry Reflex Irritability 1 min: Cough or Sneeze or Pulls Away Muscle Tone 1 min: Active Motion Color 1 min: Blue/Pale Resuscitation Effort 1 min: Tactile Stimulation SCORE 1 MIN: 8 Heart Rate 5 min: >100 bpm Resp Effort 5 min: Good Cry Reflex Irritability 5 min: Cough or Sneeze or Pulls Away Muscle Tone 5 min: Active Motion Color 5 min: Body [place], Extremities Blue SCORE 5 MIN: 9 INFANT INFORMATION BABY A Gestational Age at Delivery: 37.1 Gestational Status: Early Term- 37- 38.6 Weeks Infant Outcome : Liveborn Infant Condition : Stable Infant Sex: Female IDENTIFICATION BABY A Verification Date/Time: 09/16/2016 00:40 ID Band Number: [id number] Mother's Name Verified: Yes RN Verifying Infant: K Stephanie RN Additional Verifying Personnel: A Giovany SALES TRAINING MANAGER WEIGHT/LENGTH BABY A Infant Birthweight (gm): 3360 Weight (lb): 7 Infant Weight (oz): 7 Infant Length (in): 20.25 Infant Length (cm): 51.44 CORD INFORMATION BABY A No. Cord Vessels: 3 Nuchal Cord : N/A Cord Blood Taken: Yes-For Eval (Mom's Blood Type - or O+) Suction: Mouth; Nose ASSESSMENT BABY A Skin to Skin: Yes BABY B INFORMATION : N/A
[2016-09-16] MEDS: KETOROLAC TROMETHAMINE INJ/PF 30 MG/1 ML SDV IV SCH ×3 (05:13→21:48)
[2016-09-16] MEDS: HYDROMORPHONE HCL INJ/PF 2 MG/ML AMPULE IV PRN ×2 (05:14→10:17)
[2016-09-16] MEDS: PRENATAL VITAMIN W-O CA NO5/FE FUMARATE/FA CAPSULE PO SCH (09:38)
[2016-09-16] MEDS: DOCUSATE SODIUM 100 MG CAPSULE PO SCH ×2 (09:38→17:32)
[2016-09-16] MEDS ORDERED: LABETALOL HCL 200 MG TABLET PO ONE (10:15)
[2016-09-16] MEDS ORDERED: ONDANSETRON HCL INJ/PF 4 MG/2 ML SDV IV ONE (12:15)
[2016-09-16] MEDS: OXYCODONE-ACETAMINOPHEN 5-325 MG TABLET PO PRN (21:47)
[2016-09-16] MEDS: LABETALOL HCL 200 MG TABLET PO SCH (21:48)
[2016-09-17 06:21] LABS: HEMATOCRIT 30.2 % (36.0-47.0); HEMOGLOBIN 9.8 g/dL (12.0-15.5); HGB HCT DIFFERENCE -0.8; MEAN CORPUSCULAR HEMOGLOBIN 29.7 pg (27.0-33.4); MEAN CORPUSCULAR HGB CONC 32.4 g/dL (32.0-36.0); MEAN CORPUSCULAR VOLUME 92 fl (80-97); RED BLOOD COUNT 3.29 10^6/uL (3.72-5.28); RED CELL DISTRIBUTION WIDTH 13.8 % (11.5-14.0)
--- NOTE | 2016-09-17 09:36 | PDOC PROGRESS REPORT ---
Subjective-OB Subjective: Post Delivery Day: 40 year old. Denies any needs at this time Physical Exam (OB) Vital Signs: Temp Pulse Resp BP Pulse Ox 98.7 F 92 15 132/62 H 100 09/17/16 08:51 09/17/16 08:51 09/17/16 08:51 09/17/16 08:51 09/17/16 08:51 Intake & Output 09/16/16 09/17/16 09/18/16 06:59 06:59 06:59 Intake Total 970 Output Total 2425 Balance -1455 Weight 139.616 kg - PIH/Pre-Eclampsia Clonus: Negative Headache: Present Epigastric Pain: No Visual Changes: No - Dressing Removed: No Incision: Dressing Closure Type: opsite - Lochia Lochia Amount: Small 10-25 ml Lochia Color: Rubra/Red - Abdomen Description: Tender, Soft, Round Hernia Present: No Bowel Sounds: Normoactive Flatus Presence: Present Stool: No Fundal Description: Firm, Midline Fundal Height: u/u - u/2 Objective-Diagnostic Laboratory: 09/17/16 05:20 09/17/16 05:20 WBC 9.0 RBC 3.29 L Hgb 9.8 L Hct 30.2 L MCV 92 MCH 29.7 MCHC 32.4 RDW 13.8 Plt Count 265
[2016-09-17] MEDS: PRENATAL VITAMIN W-O CA NO5/FE FUMARATE/FA CAPSULE PO SCH (10:03)
[2016-09-17] MEDS: DOCUSATE SODIUM 100 MG CAPSULE PO SCH ×2 (10:03→17:19)
[2016-09-17] MEDS: LABETALOL HCL 200 MG TABLET PO SCH ×2 (10:03→21:49)
[2016-09-17] MEDS: OXYCODONE-ACETAMINOPHEN 5-325 MG TABLET PO PRN ×3 (10:06→23:15)
[2016-09-17] MEDS: SIMETHICONE 80 MG TAB.CHEW PO PRN (19:43)
[2016-09-18] MEDS: SIMETHICONE 80 MG TAB.CHEW PO PRN ×2 (05:19→11:52)
[2016-09-18] MEDS: OXYCODONE-ACETAMINOPHEN 5-325 MG TABLET PO PRN (05:19)
--- NOTE | 2016-09-18 09:44 | PDOC PROGRESS REPORT ---
Subjective-OB Subjective: Post Delivery Day: 40 year old. Denies any needs at this time. Denies headache, visual changes, epigastric pain. Ready to go home. Physical Exam (OB) Vital Signs: Temp Pulse Resp BP Pulse Ox 97.9 F 90 20 116/67 100 09/18/16 08:05 09/18/16 08:05 09/18/16 08:05 09/18/16 08:05 09/18/16 08:05 Intake & Output 09/17/16 09/18/16 09/19/16 06:59 06:59 06:59 Intake Total 970 1040 Output Total 2425 Balance -1455 1040 - PIH/Pre-Eclampsia Clonus: Negative Headache: Present Epigastric Pain: No Visual Changes: No - Dressing Removed: No - D&I, no redness, swelling or new drainage noted Incision: Well Approximated Closure Type: opsite - Lochia Lochia Amount: Scant < 10 ml Lochia Color: Rubra/Red - Abdomen Description: Tender Hernia Present: No Bowel Sounds: Normoactive Flatus Presence: Present Stool: No Fundal Description: Firm, Midline Fundal Height: u/u - u/2 Objective-Diagnostic Laboratory: 09/17/16 05:20
--- NOTE | 2016-09-18 09:54 | PDOC DISCHARGE SUMMARY ---
Final Diagnosis Discharge Date: 09/18/16 - Final Diagnosis (1) AMA (advanced maternal age) multigravida 35+ Is this a current diagnosis for this admission?: Yes (3) Chronic benign essential hypertension, antepartum Is this a current diagnosis for this admission?: Yes (4) Delivery by emergency caesarean section Is this a current diagnosis for this admission?: Yes (5) GDM, class A2 Is this a current diagnosis for this admission?: Yes (6) History of KIRILL positive for HSV Is this a current diagnosis for this admission?: Yes (7) Is this a current diagnosis for this admission?: Yes Discharge Data - Discharge Medication Home Medications: Cetirizine HCl [Zyrtec] 1 tab PO DAILY 08/11/16 Labetalol HCl [Normodyne 200 mg Tablet] 1 tab PO BID 08/11/16 Ascorbic Acid [Vitamin C] 1 tab PO DAILY 09/13/16 Ferrous Sulfate [Iron] 1 tab PO DAILY 09/13/16 Pnv No.122/Iron/Folic Acid [ Multi Tablet] 1 tab PO DAILY 09/13/16 Docusate Sodium [Colace 100 mg Capsule] 100 mg PO BID #0 capsule 09/18/16 Ibuprofen 800 mg PO Q6HP PRN #30 tablet 09/18/16 Labetalol HCl [Normodyne 200 mg Tablet] 200 mg PO Q12 #0 tablet 09/18/16 Oxycodone HCl/Acetaminophen [Percocet 5-325 mg Tablet] 1 tab PO Q4HP PRN #20 tablet 09/18/16 Gestational Age: 37.1 wks Reason(s) for Admission: Onset of Labor, Ceasarean Section-Repeat Procedures: Ultrasound Intrapartum Procedure(s): : Low Cervical, Transverse - Data Baby 1 Female at 1 minute: 8 at 5 minutes: 9 Weight: 3.374 kg Home with Mother: Yes Complications: No - Diagnosis Test Laboratory: Temp Pulse Resp BP Pulse Ox 97.9 F 90 20 116/67 100 09/18/16 08:05 09/18/16 08:05 09/18/16 08:05 09/18/16 08:05 09/18/16 08:05 09/15/16 09/15/16 09/17/16 19:20 23:08 05:20 RBC 3.72 3.29 L Hgb 11.0 L 9.8 L Hct 33.7 L 30.2 L Urine Opiates Screen NEGATIVE - Discharge information/Instructions Discharge Activity: Activity As Tolerated, Balance Activity w/Rest, No Lifting Over 10 Pounds, No Lifting/Push/Pulling, Non-Ambulatory Child, Pelvic Rest, Slowly Increase Activity, No tub bath Discharge Diet: Regular Disposition: HOME, SELF-CARE Follow up with: [facility] in: 1, Weeks
[2016-09-18] MEDS: PRENATAL VITAMIN W-O CA NO5/FE FUMARATE/FA CAPSULE PO SCH (10:24)
[2016-09-18] MEDS: LABETALOL HCL 200 MG TABLET PO SCH (10:24)
[2016-09-18] MEDS: DOCUSATE SODIUM 100 MG CAPSULE PO SCH (10:24)
[2016-09-18 10:58] VITALS: BP 123/67
--- NOTE | 2016-10-25 10:01 | OPERATIVE REPORT E ---
Operative Report NAME: CHRISTINE TSAI : 1975 AGE: 40Y DATE OF SURGERY: 09/16/2016 ROOM: 217 PREOPERATIVE DIAGNOSES: 1. A 37-week intrauterine . 2. History of section, for repeat. 3. Active labor. 4. Cervical incompetence with cerclage in place. POSTOPERATIVE DIAGNOSES: 1. A 37-week intrauterine . 2. History of section, for repeat. 3. Active labor. 4. Cervical incompetence with cerclage in place. PROCEDURE: 1. Repeat low transverse section. 2. Cerclage removal. SURGEON: Kyle Russell D.O. CARTOON ARTIST: None. ANESTHESIA: Spinal. COMPLICATIONS: None. PATHOLOGY: Placenta. ESTIMATED BLOOD LOSS: 600 mL. FINDINGS: 1. Viable female infant at 12:14 a.m. on September 16, 2016. Apgars 8 at 1 and 9 at 5. 2. Severe adhesive disease of the omentum, anterior wall of the uterus, and the fascia. 3. Normal appearing cervix. PROCEDURE: The patient was taken to the operating room where spinal anesthesia was administered. Once this was done, she was placed in the dorsal supine position with a leftward tilt upon the operating room table. The patient was then prepped and draped in a normal sterile fashion. A scalpel was then used to make a Pfannenstiel skin incision. The skin incision was carried down through the subcutaneous tissue to the layer of the fascia. The fascia was then incised in the midline and fascial incision was extended bilaterally using Bovie cautery. At this time it was noted that the fascia had 2 mini fenestrations within it, which the omentum had popped through. Using very careful dissection, it was noted that the fascia, the omentum, and the anterior abdominal wall had fused together. Using careful dissection, a window was created in the fascia in order to allow a hysterotomy incision to be made. A transverse hysterotomy incision was then made. The infant was found to be in cephalic position and delivered through this incision without difficulty. The nose and mouth were suctioned. Cord was clamped and cut. The infant was handed off to the awaiting nurses. Cord blood was obtained. The placenta was then manually removed from the uterus. The uterus could not be exteriorized secondary to the severe adhesive disease. The uterus was then repaired in situ with 2 layers of 1-0 Vicryl in a running locking fashion and following closely with a second layer. Excellent hemostasis was noted. The fascia was then reapproximated using 1-0 Vicryl in a running nonlocking fashion. The subcutaneous space was made hemostatic using Bovie cautery. The subcutaneous space was closed used a 3-0 plain gut. The skin was then closed with absorbable stables, covered with an OpSite, and then with a pressure dressing. Following this patient was then placed in a dorsal lithotomy position with Julio C stirrups. An open-sided speculum was then placed inside the patient's cervix. The cervix was easily visualized as well as the cerclage knot. This was cut and the cerclage was removed in its entirety with excellent hemostasis. At this point in time, the procedure was terminated. All sponge, lap, and needle counts were correct x2. The patient tolerated the procedure well. The patient was taken to recovery room in stable condition. DICTATING PHYSICIAN: Kyle Russell DO [id number] PHY#: [id number] ID: [id number] JOB#: [id number] ACCT: [id number] cc:Kyle Russell D.O. >
== END 2016-09-18 13:25 | disposition home or self-care (01) | DRG 765 ==
LOC: LC 19:07 → LR 22:46 → 2S 09-16 03:01
PROVIDERS: ADMIT Obstetrics & Gynecology; ATTEND Obstetrics & Gynecology
PROC: 10D00Z1 Extraction of Products of Conception, Low, Open Approach (ICD-10-PCS; principal; 2016-09-15)
PROC: 4A1HXCZ Monitoring of Products of Conception, Cardiac Rate, External Approach (ICD-10-PCS; 2016-09-15)
PROC: 0UCC7ZZ Extirpation of Matter from Cervix, Via Natural or Artificial Opening (ICD-10-PCS; 2016-09-15)
DX: O34.211 Maternal care for low transverse scar from previous cesarean delivery (principal); O26.873 Cervical shortening, third trimester; O10.02 Pre-existing essential hypertension complicating childbirth; O98.52 Other viral diseases complicating childbirth; O24.429 Gestational diabetes mellitus in childbirth, unspecified control; O99.89 Other specified diseases and conditions complicating pregnancy, childbirth and the puerperium; N73.6 Female pelvic peritoneal adhesions (postinfective); Z3A.37 37 weeks gestation of pregnancy; Z87.891 Personal history of nicotine dependence; Z37.0 Single live birth; B00.9 Herpesviral infection, unspecified
CPT/HCPCS: 1961; 36415; 80307; 81005; 85025; 85027; 86592; 86850; 86900; 86901; 94799; J0131; J0690; J1170; J1885; J2250; J2405; J2590; J3010; J3490

== ENCOUNTER 2016-09-21 15:35 | Emergency (ER) | payer OTHER ==
--- NOTE | 2016-09-21 17:52 | ER Document Report ---
ED Medical Screen (RME) - General Chief Complaint: Vaginal Bleeding Stated Complaint: VAGINAL BLEEDING Time Seen by Provider: 09/21/16 17:39 TRAVEL OUTSIDE OF THE [place] IN LAST 30 DAYS: No - Related Data Allergies/Adverse Reactions: No Known Allergies Allergy (Verified 09/21/16 15:39) Past Medical History - Past Medical History Cardiac Medical History: Reports: Hx Hypertension - medicated Denies: Hx Heart Attack Pulmonary Medical History: Reports: Hx Asthma - seasonal allergies can cause wheezing. Neurological Medical History: Denies: Hx Cerebrovascular Accident, Hx Seizures Renal/ Medical History: Denies: Hx Peritoneal Dialysis GI Medical History: Denies: Hx Hepatitis, Hx Hiatal Hernia, Hx Ulcer Psychiatric Medical History: Denies: Hx Depression Infectious Medical History: Denies: Hx Hepatitis Past Surgical History: Reports: Hx Section, Hx Cholecystectomy, Hx Myringotomy. Denies: Hx Hysterectomy, Hx Mastectomy, Hx Open Heart Surgery, Hx Pacemaker - Immunizations Hx Diphtheria, Pertussis, Tetanus Vaccination: Yes Physical Exam - Vital signs Vitals: Temp Pulse Resp BP Pulse Ox 99.6 F 82 16 148/106 H 97 09/21/16 15:46 09/21/16 15:46 09/21/16 15:46 09/21/16 15:46 09/21/16 15:46 Course - Vital Signs Vital signs: Temp Pulse Resp BP Pulse Ox 99.6 F 82 16 148/106 H 97 09/21/16 15:46 09/21/16 15:46 09/21/16 15:46 09/21/16 15:46 09/21/16 15:46
[2016-09-21 18:23] LABS: ABSOLUTE BASOPHILS # (AUTO) 0.1 10^3/uL (0.0-0.2); ABSOLUTE EOSINOPHILS # (AUTO) 0.4 10^3/uL (0.0-0.6); ABSOLUTE LYMPHOCYTES (AUTO) 1.9 10^3/uL (0.5-4.7); ABSOLUTE MONOCYTES (AUTO) 0.6 10^3/uL (0.1-1.4); HEMATOCRIT 34.9 % (36.0-47.0); HGB HCT DIFFERENCE -1.9; LYMPHOCYTES % (AUTO) 27.5 % (13-45); MEAN CORPUSCULAR HGB CONC 31.5 g/dL (32.0-36.0); MEAN CORPUSCULAR VOLUME 92 fl (80-97); SEGMENTED NEUTROPHILS % (AUTO) 57.5 % (42-78)
[2016-09-21 18:39] LABS: ALANINE AMINOTRANSFERASE 26 U/L (9-52); ALBUMIN 3.4 g/dL (3.5-5.0); ALKALINE PHOSPHATASE 80 U/L (38-126); ANION GAP 9 (5-19); ASPARTATE AMINO TRANSFERASE 18 U/L (14-36); BILIRUBIN,DIRECT 0.3 mg/dL (0.0-0.4); BILIRUBIN,TOTAL 0.5 mg/dL (0.2-1.3); BLOOD UREA NITROGEN 14 mg/dL (7-20); CALCIUM 9.5 mg/dL (8.4-10.2); CARBON DIOXIDE 25 mmol/L (22-30); CHLORIDE 107 mmol/L (98-107); CREATININE RESULT 0.85 mg/dL (0.52-1.25); GLUCOSE 84 mg/dL (75-110); POTASSIUM 4.5 mmol/L (3.6-5.0); TOTAL PROTEIN 6.5 g/dL (6.3-8.2)
[2016-09-21 18:40] LABS: APPEARANCE,URINE SLIGHTLY-CLOUDY; BILIRUBIN,URINE NEGATIVE (NEGATIVE); GLUCOSE, URINE NEGATIVE (NEGATIVE); KETONES,URINE NEGATIVE (NEGATIVE); LEUKOCYTE ESTERASE,URINE SMALL (NEGATIVE); NITRITE,URINE NEGATIVE (NEGATIVE); PROTEIN,URINE 100 mg/dL (NEGATIVE); URINE SPECIFIC GRAVITY 1.027; UROBILINOGEN,URINE NEGATIVE mg/dL (<2.0)
[2016-09-21] MEDS ORDERED: FUROSEMIDE 40 MG TABLET PO ONE (19:43)
[2016-09-21] MEDS ORDERED: MISOPROSTOL 0.2 MG TABLET PR ONE (19:43)
--- NOTE | 2016-09-21 20:02 | ER Document Report ---
ED General - General Mode of Arrival: Ambulatory Information source: Patient TRAVEL OUTSIDE OF THE [place] IN LAST 30 DAYS: No - HPI Patient complains to provider of: Swelling to bilateral legs and vaginal bleeding Onset: Other - 5 days ago Associated symptoms: Other - see notes above <MEIR GARCIA - Last Filed: 09/21/16 21:15> <JUANKRISHNAKEN - Last Filed: 09/21/16 21:17> - General Chief Complaint: Vaginal Bleeding Stated Complaint: VAGINAL BLEEDING Time Seen by Provider: 09/21/16 17:39 Notes: 40-year-old female presents to the ED complaining of bilateral leg swelling and vaginal bleeding that started 5 days ago after having a performed. Patient reports that she had some mild swelling prior to the , but it has become progressively worse. Patient is complaining of tenderness to the bilateral legs and the sensation that her skin is "pulling". The patient elevated her feet last night and the swelling went down, but returned when she started moving around on her feet. Patient reports that since the surgery she has been going through 1 pad, but now is going through 2 or more pads. She states that she has changed her pad 3 times today. Patient also complaining of sharp burning pain to her incision site. Denies being on any blood thinning medication. Patient does have a history of hypertension and is on labetalol. Patient's was performed by Dr. Palafox. (MEIR GARCIA) - Related Data Allergies/Adverse Reactions: No Known Allergies Allergy (Verified 09/21/16 15:39) Past Medical History - General Information source: Patient - Social History Smoking Status: Never Smoker Cigarette use (# per day): No Chew tobacco use (# tins/day): No Frequency of alcohol use: None Drug Abuse: None Family History: Reviewed & Not Pertinent Patient has suicidal ideation: No Patient has homicidal ideation: No - Past Medical History Cardiac Medical History: Reports: Hx Hypertension - medicated Denies: Hx Heart Attack Pulmonary Medical History: Reports: Hx Asthma - seasonal allergies can cause wheezing. Neurological Medical History: Denies: Hx Cerebrovascular Accident, Hx Seizures Renal/ Medical History: Denies: Hx Peritoneal Dialysis GI Medical History: Denies: Hx Hepatitis, Hx Hiatal Hernia, Hx Ulcer Psychiatric Medical History: Denies: Hx Depression Infectious Medical History: Denies: Hx Hepatitis Past Surgical History: Reports: Hx Section - September 16, 2016, Hx Cholecystectomy, Hx Myringotomy. Denies: Hx Hysterectomy, Hx Mastectomy, Hx Open Heart Surgery, Hx Pacemaker - Immunizations Hx Diphtheria, Pertussis, Tetanus Vaccination: Yes <MEIR GARCIA - Last Filed: 09/21/16 21:15> Review of Systems - Review of Systems Constitutional: No symptoms reported EENT: No symptoms reported Cardiovascular: No symptoms reported Respiratory: No symptoms reported Gastrointestinal: No symptoms reported Genitourinary: No symptoms reported Female Genitourinary: See HPI, Vaginal bleeding Musculoskeletal: See HPI, Leg swelling - bilateral Skin: See HPI, Other - Pain to the incision site Hematologic/Lymphatic: No symptoms reported Neurological/Psychological: No symptoms reported -: Yes All other systems reviewed and negative <MEIR GARCIA - Last Filed: 09/21/16 21:15> Physical Exam <MEIR GARCIA - Last Filed: 09/21/16 21:15> <KEN MCQUEEN - Last Filed: 09/21/16 21:17> - Vital signs Vitals: Temp Pulse Resp BP Pulse Ox 99.6 F 82 16 148/106 H 97 09/21/16 15:46 09/21/16 15:46 09/21/16 15:46 09/21/16 15:46 09/21/16 15:46 - Notes Notes: GENERAL: Alert, interacts well. No acute distress. HEAD: Normocephalic, atraumatic. EYES: Pupils equal, round, and reactive to light. Extraocular movements intact. ENT: Oral mucosa moist, tongue midline. NECK: Full range of motion. Supple. Trachea midline. LUNGS: Clear to auscultation bilaterally, no wheezes, rales, or rhonchi. No respiratory distress. HEART: Regular rate and rhythm. No murmurs, gallops, or rubs. ABDOMEN: Soft, non-tender. Non-distended. Bowel sounds present in all 4 quadrants. EXTREMITIES: Moves all 4 extremities spontaneously. Radial and dorsalis pedis pulses 2/4 bilaterally. No cyanosis. 4+ pitting edema at the level of the bilateral knees. NEUROLOGICAL: Alert and oriented x3. Normal speech. PSYCH: Normal affect, normal mood. SKIN: Warm and dry.Well approximated healing incision to the lower abdomen where there is a slight gaping of superficial skin secondary to one torn stitch in the center. There is no erythema, but some serous drainage. (MEIR GARCIA) Course - Laboratory Result Diagrams: 09/21/16 18:08 09/21/16 18:08 - Consults Dr. Daniels Time consulted: 19:40 <MEIR GARCIA - Last Filed: 09/21/16 21:15> - Laboratory Result Diagrams: 09/21/16 18:08 09/21/16 18:08 <KEN MCQUEEN - Last Filed: 09/21/16 21:17> - Re-evaluation Re-evalutation: 09/21/16 20:48 CBC shows anemia that has improved since delivery with hemoglobin of 11.0, coags normal MP unremarkable with the exception of a somewhat low albumin at 3.4 , urinalysis shows large blood and small leukocyte esterase, 6 8 squamous epithelial cells. This is consistent with a contaminated specimen from the vaginal bleeding. 100 of protein in the urine likely comes from the blood in the urine. No evidence of preeclampsia at this time. Discussed patient and her increased vaginal bleeding with Dr. Dacosta, requested the patient be given Cytotec to help decrease the bleeding also recommends giving a single dose of Lasix 40 mg here to help mobilize some of the fluid. Examination of the incision appears to reveal 1 single dislodged subcutaneous stitch. No evidence of infection and no abnormal drainage. Wound is redressed. Patient is discharged home 09/21/16 20:49 Extensive time was spent counseling the patient regarding breast-feeding. ( KEN MCQUEEN) - Vital Signs Vital signs: Temp Pulse Resp BP Pulse Ox 97.9 F 86 18 149/82 H 99 09/21/16 21:01 09/21/16 21:01 09/21/16 21:01 09/21/16 21:01 09/21/16 21:01 - Laboratory Laboratory results interpreted by me: 09/21/16 09/21/16 09/21/16 18:08 18:08 18:08 Hgb 11.0 L Hct 34.9 L MCHC 31.5 L Albumin 3.4 L Urine Protein 100 H Urine Blood LARGE H Ur Leukocyte Esterase SMALL H Urine Ascorbic Acid 20 H - Consults Dr. Daniels Reason for consultation: 09/21/16 19:40 Patient was discussed with Dr. Daniels and he advises to give the patient 40 mg of Lasix now to control her swelling and to give her 800 mg of Cytotec per rectum for vaginal bleeding. Dr. Dacosta is in agreement that the patient's current symptoms are not consistent with preeclampsia. (MEIR GARCIA) Discharge <MEIR GARCIA - Last Filed: 09/21/16 21:15> <KEN MCQUEEN - Last Filed: 09/21/16 21:17> - Discharge Clinical Impression: edema, hemorrhage of vagina, Essential hypertension, Encounter for breast feeding counseling Condition: Stable Disposition: HOME, SELF-CARE Additional Instructions: Drink plenty of fluids, walk at least 15 minutes twice a day, use compression hose or Andrea wraps to help decrease the swelling in your feet. Keep your feet elevated whenever you are sitting. As previously discussed the website [employer] is a good resource for breast- feeding knowledge. I have printed you a handout regarding storage of breast milk. Referrals: ISAAK MONTANEZ PA [PHYSICIAN ADMINISTRATIVE ASSISTANT COORDINATOR] - Follow up as needed Scribe Attestation: 09/21/16 21:17 I personally performed the services described in the documentation, reviewed and edited the documentation which was dictated to the scribe in my presence, and it accurately records my words and actions. (KEN MCQUEEN) Scribe Documentation - Scribe Written by Scribe:: Hieu Lambert, 09/21/20162020 acting as scribe for :: Shai <MEIR GARCIA - Last Filed: 09/21/16 21:15>
[2016-09-21 21:07] VITALS: BP 149/82
== END 2016-09-21 21:07 | disposition home or self-care (01) ==
LOC: ER 15:35
DX: O72.1 Other immediate postpartum hemorrhage (principal); R60.0 Localized edema; N93.9 Abnormal uterine and vaginal bleeding, unspecified; I10 Essential (primary) hypertension
CPT/HCPCS: 36415; 80053; 81001; 85025; 85610; 99284

== ENCOUNTER 2016-10-01 19:53 | Emergency (ER) | payer OTHER ==
--- NOTE | 2016-10-01 20:45 | ER Document Report ---
ED Medical Screen (RME) - General Chief Complaint: Shortness Of Breath Stated Complaint: BREATHING DIFFICULTY Time Seen by Provider: 10/01/16 20:44 TRAVEL OUTSIDE OF THE [place] IN LAST 30 DAYS: No - HPI Notes: 10/01/16 20:44 Weeks from having shortness of breath productive cough with continued leg swelling improves with elevation - Related Data Allergies/Adverse Reactions: No Known Allergies Allergy (Verified 10/01/16 20:26) Past Medical History - Past Medical History Cardiac Medical History: Reports: Hx Hypertension - medicated Denies: Hx Heart Attack Pulmonary Medical History: Reports: Hx Asthma - seasonal allergies can cause wheezing. Neurological Medical History: Denies: Hx Cerebrovascular Accident, Hx Seizures Renal/ Medical History: Denies: Hx Peritoneal Dialysis GI Medical History: Denies: Hx Hepatitis, Hx Hiatal Hernia, Hx Ulcer Psychiatric Medical History: Denies: Hx Depression Infectious Medical History: Denies: Hx Hepatitis Past Surgical History: Reports: Hx Section - September 16, 2016, Hx Cholecystectomy, Hx Myringotomy. Denies: Hx Hysterectomy, Hx Mastectomy, Hx Open Heart Surgery, Hx Pacemaker - Immunizations Hx Diphtheria, Pertussis, Tetanus Vaccination: Yes Review of Systems - Review of Systems Constitutional: Other - Swelling that improves with elevation cough production Physical Exam - Vital signs Vitals: Temp Pulse Resp BP Pulse Ox 98.9 F 87 20 146/89 H 99 10/01/16 20:26 10/01/16 20:26 10/01/16 20:26 10/01/16 20:26 10/01/16 20:26 - Respiratory Respiratory status: No respiratory distress Chest status: Nontender Breath sounds: Rhonchi Chest palpation: Normal Course - Vital Signs Vital signs: Temp Pulse Resp BP Pulse Ox 98.9 F 87 20 146/89 H 99 10/01/16 20:26 10/01/16 20:26 10/01/16 20:26 10/01/16 20:26 10/01/16 20:26
[2016-10-01 21:23] LABS: ABSOLUTE BASOPHILS # (AUTO) 0.1 10^3/uL (0.0-0.2); ABSOLUTE EOSINOPHILS # (AUTO) 0.4 10^3/uL (0.0-0.6); ABSOLUTE LYMPHOCYTES (AUTO) 2.4 10^3/uL (0.5-4.7); ABSOLUTE MONOCYTES (AUTO) 0.6 10^3/uL (0.1-1.4); ABSOLUTE NEUT (AUTO) 4.1 10^3/uL (1.7-8.2); BASOPHILS % (AUTO) 0.9 % (0-2); EOSINOPHILS % (AUTO) 5.8 % (0-6); HEMATOCRIT 39.6 % (36.0-47.0); HEMOGLOBIN 13.1 g/dL (12.0-15.5); HGB HCT DIFFERENCE -0.3; LYMPHOCYTES % (AUTO) 31.6 % (13-45); MEAN CORPUSCULAR HEMOGLOBIN 29.6 pg (27.0-33.4); MEAN CORPUSCULAR VOLUME 90 fl (80-97); MONOCYTES % (AUTO) 7.6 % (3-13); RED BLOOD COUNT 4.42 10^6/uL (3.72-5.28); RED CELL DISTRIBUTION WIDTH 13.8 % (11.5-14.0); SEGMENTED NEUTROPHILS % (AUTO) 54.1 % (42-78); WHITE BLOOD COUNT 7.6 10^3/uL (4.0-10.5)
[2016-10-01 21:29] LABS: APPEARANCE,URINE SLIGHTLY-CLOUDY; BILIRUBIN,URINE NEGATIVE (NEGATIVE); GLUCOSE, URINE NEGATIVE (NEGATIVE); KETONES,URINE NEGATIVE (NEGATIVE); LEUKOCYTE ESTERASE,URINE TRACE (NEGATIVE); NITRITE,URINE NEGATIVE (NEGATIVE); PROTEIN,URINE NEGATIVE (NEGATIVE); URINE SPECIFIC GRAVITY 1.009
[2016-10-01 21:35] LABS: PROTHROMBIN TIME 13.7 SEC (11.4-15.4)
[2016-10-01 21:39] LABS: ALANINE AMINOTRANSFERASE 27 U/L (9-52); ALKALINE PHOSPHATASE 71 U/L (38-126); ANION GAP 11 (5-19); ASPARTATE AMINO TRANSFERASE 19 U/L (14-36); BILIRUBIN,DIRECT 0.3 mg/dL (0.0-0.4); BILIRUBIN,TOTAL 0.5 mg/dL (0.2-1.3); BLOOD UREA NITROGEN 9 mg/dL (7-20); CALCIUM 9.7 mg/dL (8.4-10.2); CARBON DIOXIDE 28 mmol/L (22-30); CHLORIDE 104 mmol/L (98-107); CREATINE KINASE 199 U/L (30-135); CREATININE RESULT 0.98 mg/dL (0.52-1.25); GLUCOSE 93 mg/dL (75-110); POTASSIUM 3.9 mmol/L (3.6-5.0); SODIUM 143.2 mmol/L (137-145); TOTAL PROTEIN 7.4 g/dL (6.3-8.2)
[2016-10-01 21:44] LABS: BACTERIA,URINE 1+ /HPF
[2016-10-01 21:56] LABS: CREATINE KINASE MB 1.27 ng/mL (<4.55)
--- NOTE | 2016-10-01 21:57 | ER Document Report ---
ED General - General Chief Complaint: Shortness Of Breath Stated Complaint: BREATHING DIFFICULTY Time Seen by Provider: 10/01/16 20:44 Mode of Arrival: Ambulatory Information source: Patient Notes: There is a 40-year-old female with hypertension and asthma, status post C- section 2 weeks ago who presents to the emergency room with a one-week history of shortness of breath, chest tightness, labored breathing, congestion. Eyes fever. She does admit to having bilateral lower extremity swelling without any unilateral swelling or calf pain. TRAVEL OUTSIDE OF THE [place] IN LAST 30 DAYS: No - HPI Onset: Last week Onset/Duration: Gradual Quality of pain: No pain Severity: None Pain Level: Denies Associated symptoms: Shortness of breath. denies: Chills, Fever Exacerbated by: Denies Relieved by: Denies Similar symptoms previously: Yes Recently seen / treated by doctor: Yes - Related Data Allergies/Adverse Reactions: No Known Allergies Allergy (Verified 10/01/16 20:26) Past Medical History - General Information source: Patient - Social History Smoking Status: Never Smoker Cigarette use (# per day): No Chew tobacco use (# tins/day): No Frequency of alcohol use: Occasional Drug Abuse: None Lives with: Family Family History: Reviewed & Not Pertinent Patient has suicidal ideation: No Patient has homicidal ideation: No - Past Medical History Cardiac Medical History: Reports: Hx Hypertension - medicated Denies: Hx Heart Attack Pulmonary Medical History: Reports: Hx Asthma - seasonal allergies can cause wheezing. Neurological Medical History: Denies: Hx Cerebrovascular Accident, Hx Seizures Renal/ Medical History: Denies: Hx Peritoneal Dialysis GI Medical History: Denies: Hx Hepatitis, Hx Hiatal Hernia, Hx Ulcer Psychiatric Medical History: Denies: Hx Depression Infectious Medical History: Denies: Hx Hepatitis Past Surgical History: Reports: Hx Section - September 16, 2016, Hx Cholecystectomy, Hx Myringotomy. Denies: Hx Hysterectomy, Hx Mastectomy, Hx Open Heart Surgery, Hx Pacemaker - Immunizations Hx Diphtheria, Pertussis, Tetanus Vaccination: Yes Review of Systems - Review of Systems Constitutional: denies: Chills, Fever EENT: No symptoms reported Cardiovascular: No symptoms reported Respiratory: See HPI Gastrointestinal: No symptoms reported Genitourinary: No symptoms reported Female Genitourinary: No symptoms reported Musculoskeletal: No symptoms reported Skin: No symptoms reported Hematologic/Lymphatic: No symptoms reported Neurological/Psychological: No symptoms reported Physical Exam - Vital signs Vitals: Temp Pulse Resp BP Pulse Ox 98.9 F 87 20 146/89 H 99 10/01/16 20:26 10/01/16 20:26 10/01/16 20:26 10/01/16 20:26 10/01/16 20:26 Notes: Physical exam: GENERAL: 10-year-old female, alert and oriented 3, no acute distress HEAD: Atraumatic, normocephalic. EYES: Pupils equal round and reactive to light, extraocular movements intact, sclera anicteric, conjunctiva are normal. ENT: TMs normal, nares patent, oropharynx clear without exudates. Moist mucous membranes. NECK: Normal range of motion, supple without lymphadenopathy or JVD. LUNGS: Breath sounds clear to auscultation bilaterally and equal. No wheezes rales or rhonchi. HEART: Regular rate and rhythm without murmurs, rubs or gallops. ABDOMEN: Soft, normoactive bowel sounds. No tenderness to palpation. No guarding, no rebound. No masses appreciated. EXTREMITIES: Normal range of motion, no pitting or edema. No clubbing or cyanosis. NEUROLOGICAL: Cranial nerves II through XII grossly intact. Normal speech, normal gait. PSYCH: Normal mood, normal affect. SKIN: Warm, Dry, normal turgor, no rashes or lesions noted. Course - Vital Signs Vital signs: Temp Pulse Resp BP Pulse Ox 98.9 F 87 17 170/94 H 99 10/01/16 20:26 10/01/16 20:26 10/01/16 21:46 10/01/16 21:45 10/01/16 21:46 - Laboratory Result Diagrams: 10/01/16 21:08 10/01/16 21:08 Laboratory results interpreted by me: 10/01/16 10/01/16 21:08 21:08 Creatine Kinase 199 H Urine Blood MODERATE H Urine Urobilinogen 4.0 H Ur Leukocyte Esterase TRACE H - Diagnostic Test Radiology reviewed: Image reviewed, Reports reviewed - There is no pulmonary emboli - EKG Interpretation by Me Rate: Normal Rhythm: NSR - EKG shows normal sinus rhythm with a ventricular rate of 91, no acute ST-T wave changes Discharge - Discharge Clinical Impression: Reactive airway disease Condition: Stable Disposition: HOME, SELF-CARE Additional Instructions: We discussed, the CAT scan of the chest showed no evidence of pulmonary emboli. Blood pressure is elevated I recommend you continue with the labetalol. Review asthma medicines. Take albuterol for nebulizer as prescribed Get a follow-up with your OB doctor on Monday: Call them on Monday and tell them you are in the emergency room for shortness of breath and that your blood pressure was in the elevated range(160 systolic). Tell them that the ER doctor wanted to seen by the OB doctor this week. also, you have been on hydrochlorothiazide in the past for your blood pressure and this will improve the swelling in your lower legs. You can ask them if they feel adding hydrochlorothiazide to the labetalol is safe while breast- feeding. The emergency room for worsening swelling, shortness of breath or concerns or getting worse Prescriptions: Albuterol Sulfate [Albuterol Sulfate 2.5mg/3 mL] 1 vial IH Q4 PRN #14 vial PRN Reason: Referrals: ISAAK MONTANEZ PA [Primary Care Provider] - Follow up as needed
[2016-10-01 21:58] LABS: TROPONIN I < 0.012 ng/mL
--- NOTE | 2016-10-01 22:16 | EKG REPORT ---
SEVERITY:- NORMAL ECG - SINUS RHYTHM : Confirmed by: Kimberley Lopez 01-Oct-2016 22:15:35
--- NOTE | 2016-10-01 22:25 | RADIOLOGY REPORT (SQ) ---
EXAM DESCRIPTION: CTA CHEST COMPLETED DATE/TIME: 10/01/2016 10:10 pm REASON FOR STUDY: cp COMPARISON: None. TECHNIQUE: CT scan of the chest performed using helical scanning technique with dynamic intravenous contrast injection. Images reviewed with lung, soft tissue and bone windows. Reconstructed coronal and sagittal MPR images reviewed. Additional 3 dimensional post-processing performed to develop Maximal Intensity Projection images (DE P). All images stored on PACS. All CT scanners at this facility use dose modulation, iterative reconstruction, and/or weight based d osing when appropriate to reduce radiation dose to as low as reasonably achievable (ALARA). [facility]: Dose Right [facility]: CareDose [facility]: Dose Right [facility]: Teradose 4D [facility]: Ancestry CONTRAST TYPE AND DOSE: contrast/concentration: Isovue 370.00 mg/ml; Total Contrast Delivered: 86.0 ml; Total Saline Delivered: 110.0 ml RENAL FUNCTION: BUN 9; creatinine 0.98 RADIATION DOSE: Up-to-date CT equipment and radiation dose reduction techniques were employed. CTDIv ol: 16.5 - 33.8 mGy. DLP: 1220 mGy-cm. . LIMITATIONS: None. FINDINGS: LUNGS AND PLEURA: No masses, infiltrates, pneumothorax. No pleural effusions, calcificati ons. Incidental note is made of a fissural lymph node, right major fissure. AORTA AND GREAT VESSELS: No aneurysm or dissection. HEART: No pericardial effusion. PULMONARY ARTERIES: No emboli visualized in the main pulmonary arteries or the segmental branches. HILAR AND MEDIASTINAL STRUCTURES: No identified masses or abnormal nodes. HARDWARE: None in the chest. UPPER ABDOMEN: No significant findings. Limited exam. THYROID AND OTHER SOFT TISSUES: No masses. No adenopathy. BONES: No acute or significant finding. 3D MIPS: Confirm above findings. OTHER: No other significant finding. IMPRESSION: NORMAL CTA OF THE CHEST. NO PULMONARY EMBOLI. TECHNICAL DOCUMENTATION: JOB ID: [id number] Quality ID # [id number]: Final reports with documentation of one or more dose reduction techniques (e.g., Au tomated exposure control, adjustment of the mA and/or kV according to patient size, use of iterative reconstruction technique) 2010 [employer]- All Rights Reserved
[2016-10-01] MEDS ORDERED: IPRATROPIUM/ALBUTEROL 0.5-2.5 MG/3 ML AMPUL NEB ONE (22:46)
[2016-10-01 23:44] VITALS: BP 160/94
== END 2016-10-01 23:46 | disposition home or self-care (01) ==
LOC: ER 19:53
DX: J45.909 Unspecified asthma, uncomplicated (principal); R06.02 Shortness of breath; I10 Essential (primary) hypertension; R07.9 Chest pain, unspecified; R09.81 Nasal congestion; M79.89 Other specified soft tissue disorders
CPT/HCPCS: 93005; 94640; 99285; 36415; 82553; 82550; 85025; 85610; 80053; 81001; 84484; 71275; 93010; J7620

== ENCOUNTER → 2016-10-13 | Outpatient (CLI) | payer OTHER ==
--- NOTE | 2016-10-13 19:07 | XCELERA REPORT ---
[address] [place] [address] Transthoracic Echocardiogram Report Name: CHRISTINE TSAI Age: 40 yrs Gender: Female : 1975 Patient Status: Outpatient Patient Location: [facility] Study Date: 10/13/2016 03:51 PM Height: 66 in Weight: 284 lb BSA: 2.3 m2 Reason For Study: CARDIOMYOPATHY Ordering Physician: MICHELINE JEAN BAPTISTE Performed By: Mary Olivier Interpretation Summary Mild asymmetric septal hypertrophy, normal LVEF 65-70% with no LV diastolic dysfunction, no regional wall motion abnormality, and no LV enlargement. No evidencce of cardiomyopathy. Mild AV sclerosis with upper mild elevated peak velocity suggesting very mild , AV is 3 cusps with no aortic regurgitation. Mild MV thickening with no MS, mild MR with no LA enlargement (upper normal) TV is normal, mild TR with mild pulm hypertension and no R heart enlargement. MMode/2D Measurements \T\ Calculations RVDd: 3.2 cm LVIDd: 4.4 cm FS: 42.9 % Ao root diam: 2.5 cm IVSd: 1.0 cm LVIDs: 2.5 cm EDV(Teich): 87.2 ml LVPWd: 1.1 cm ESV(Teich): 22.4 ml Ao root area: 4.7 cm2 EF(Teich): 74.3 % LA dimension: 4.0 cm LVOT diam: 1.9 cm LVOT area: 3.0 cm2 Doppler Measurements \T\ Calculations MV E max kartik: MV P1/2t max kartik: Ao V2 max: LV V1 max P.9 cm/sec 86.4 cm/sec 196.1 cm/sec 9.7 mmHg MV A max kartik: MV P1/2t: 57.4 msec Ao max PG: LV V1 max: 89.3 cm/sec MVA(P1/2t): 3.8 cm2 15.4 mmHg 155.5 cm/sec MV E/A: 0.95 MV dec slope: JOSHUA(V,D): 2.3 cm2 440.9 cm/sec2 PA V2 max: TR max kartik: 103.2 cm/sec 276.9 cm/sec PA max PG: TR max P.7 mmHg 4.3 mmHg Left Ventricle The left ventricle is normal in size. There is mild asymmetric left ventricular hypertrophy. ivs 11 mm, post wall 10 mm. The left ventricular ejection fraction is normal. LV EF is 65-70%. Doppler measurements suggest normal left ventricular diastolic function. No regional wall motion abnormalities noted. There is no thrombus. Right Ventricle The right ventricle is grossly normal size. The right ventricular systolic function is normal. Atria The right atrium is normal. The left atrial size is normal. The interatrial septum is intact with no evidence for an atrial septal defect. Mitral Valve There is mild mitral annular calcification. The mitral valve leaflets are sclerotic and show some degree of functional abnormality. There is no evidence of mitral valve prolapse. There is no vegetation seen on the mitral valve. There is no mitral valve stenosis. There is a mild amount of mitral regurgitation. Aortic Valve The aortic valve is trileaflet. The aortic valve opens well. The aortic valve is sclerotic and shows some degree of functional abnormality. There is no aortic valvular vegetation. There is mild aortic stenosis. There is a peak gradient of 16 mm of Hg. No aortic regurgitation is present. Tricuspid Valve The tricuspid valve is not well visualized, but is grossly normal. There is no tricuspid valve prolapse. There is no tricuspid stenosis. There is a mild amount of tricuspid regurgitation. Right ventricular systolic pressure is estimated to be elevated at 30-40mmHg. Pulmonic Valve There is no pulmonic valvular regurgitation. Great Vessels The aortic root is normal size. Effusions There is no pericardial effusion. I WMSI = 1.00 % Normal = 100 Segments Size X - Cannot 1 - Normal 2 - 3 - Akinetic4 - 1-2 small Interpret Hypokinetic Dyskinetic 3-5 moderate 5 - 6-14 large Aneurysmal 15-16 diffuse : MICHELINE JEAN BAPTISTE > Mane Maldonado
== END ==
LOC: SP 15:40
PROVIDERS: ATTEND Specialist
DX: O16.5 Unspecified maternal hypertension, complicating the puerperium (principal); R06.02 Shortness of breath
CPT/HCPCS: 93306

== ENCOUNTER 2016-10-20 11:01 | Emergency (ER) | payer OTHER ==
--- NOTE | 2016-10-20 11:15 | ER Document Report ---
ED Medical Screen (RME) - General Chief Complaint: Abdominal Pain Stated Complaint: ABDOMINAL PAIN Time Seen by Provider: 10/20/16 11:14 Mode of Arrival: Ambulatory Information source: Patient Notes: 40-year-old female presents to ED for right lower quadrant abdominal pain since Monday. She states his been getting worse each day. She had a follow-up appointment with [facility] today for following up with from September 16. OB did a vaginal exam and stated that the patient needed to come to the emergency room to get checked for any appendicitis. Patient denies any fever nausea vomiting states he has had a lot of dizziness. Does have tenderness to the right lower quadrant. Child was born on September 16. I have greeted and performed a rapid initial assessment of this patient. A comprehensive ED assessment and evaluation of the patient, analysis of test results and completion of medical decision making process will be conducted by an additional ED providers. TRAVEL OUTSIDE OF THE [place] IN LAST 30 DAYS: No - Related Data Allergies/Adverse Reactions: No Known Allergies Allergy (Verified 10/20/16 11:10) Past Medical History - Past Medical History Cardiac Medical History: Reports: Hx Hypertension - medicated Denies: Hx Heart Attack Pulmonary Medical History: Reports: Hx Asthma - seasonal allergies can cause wheezing. Neurological Medical History: Denies: Hx Cerebrovascular Accident, Hx Seizures Renal/ Medical History: Denies: Hx Peritoneal Dialysis GI Medical History: Denies: Hx Hepatitis, Hx Hiatal Hernia, Hx Ulcer Psychiatric Medical History: Denies: Hx Depression Infectious Medical History: Denies: Hx Hepatitis Past Surgical History: Reports: Hx Section - September 16, 2016, Hx Cholecystectomy, Hx Myringotomy. Denies: Hx Hysterectomy, Hx Mastectomy, Hx Open Heart Surgery, Hx Pacemaker - Immunizations Hx Diphtheria, Pertussis, Tetanus Vaccination: Yes Physical Exam - Vital signs Vitals: Temp Pulse Resp BP Pulse Ox 98.2 F 98 22 H 135/89 H 97 10/20/16 11:12 10/20/16 11:12 10/20/16 11:12 10/20/16 11:12 10/20/16 11:12 Course - Vital Signs Vital signs: Temp Pulse Resp BP Pulse Ox 98.2 F 98 22 H 135/89 H 97 10/20/16 11:12 10/20/16 11:12 10/20/16 11:12 10/20/16 11:12 10/20/16 11:12
[2016-10-20 12:45] LABS: ABSOLUTE BASOPHILS # (AUTO) 0.1 10^3/uL (0.0-0.2); ABSOLUTE EOSINOPHILS # (AUTO) 0.5 10^3/uL (0.0-0.6); ABSOLUTE LYMPHOCYTES (AUTO) 2.3 10^3/uL (0.5-4.7); ABSOLUTE MONOCYTES (AUTO) 0.5 10^3/uL (0.1-1.4); ABSOLUTE NEUT (AUTO) 5.5 10^3/uL (1.7-8.2); BASOPHILS % (AUTO) 1.4 % (0-2); EOSINOPHILS % (AUTO) 5.1 % (0-6); HEMATOCRIT 40.9 % (36.0-47.0); HEMOGLOBIN 13.6 g/dL (12.0-15.5); HGB HCT DIFFERENCE -0.1; LYMPHOCYTES % (AUTO) 26.2 % (13-45); MEAN CORPUSCULAR HEMOGLOBIN 29.1 pg (27.0-33.4); MEAN CORPUSCULAR HGB CONC 33.1 g/dL (32.0-36.0); MEAN CORPUSCULAR VOLUME 88 fl (80-97); MONOCYTES % (AUTO) 5.8 % (3-13); RED BLOOD COUNT 4.66 10^6/uL (3.72-5.28); SEGMENTED NEUTROPHILS % (AUTO) 61.5 % (42-78); WHITE BLOOD COUNT 8.9 10^3/uL (4.0-10.5)
[2016-10-20 13:46] LABS: ALANINE AMINOTRANSFERASE 29 U/L (9-52); ALBUMIN 3.8 g/dL (3.5-5.0); ALKALINE PHOSPHATASE 62 U/L (38-126); ANION GAP 10 (5-19); ASPARTATE AMINO TRANSFERASE 20 U/L (14-36); BILIRUBIN,DIRECT 0.4 mg/dL (0.0-0.4); BILIRUBIN,TOTAL 0.5 mg/dL (0.2-1.3); BLOOD UREA NITROGEN 10 mg/dL (7-20); CALCIUM 9.3 mg/dL (8.4-10.2); CARBON DIOXIDE 29 mmol/L (22-30); CHLORIDE 104 mmol/L (98-107); CREATININE RESULT 0.82 mg/dL (0.52-1.25); GLUCOSE 97 mg/dL (75-110); POTASSIUM 4.3 mmol/L (3.6-5.0); SODIUM 142.9 mmol/L (137-145)
[2016-10-20 13:47] LABS: APPEARANCE,URINE SLIGHTLY-CLOUDY; BILIRUBIN,URINE NEGATIVE (NEGATIVE); GLUCOSE, URINE NEGATIVE (NEGATIVE); KETONES,URINE NEGATIVE (NEGATIVE); LEUKOCYTE ESTERASE,URINE TRACE (NEGATIVE); NITRITE,URINE NEGATIVE (NEGATIVE); PROTEIN,URINE NEGATIVE (NEGATIVE)
--- NOTE | 2016-10-20 15:08 | RADIOLOGY REPORT (SQ) ---
EXAM DESCRIPTION: CT ABD/PELVIS WITH IV ONLY COMPLETED DATE/TIME: 10/20/2016 2:45 pm REASON FOR STUDY: RLQ pain s/p csection 1 month pain 5 days COMPARISON: None. TECHNIQUE: CT scan of the abdomen and pelvis performed using helical scanning technique with dynamic intravenous contrast injection. No oral contrast. Images reviewed with lung, soft tissue, and bone windows. Reconstructed coronal and sagittal MPR images reviewed. Delayed images for evaluation of the urinary system also acquired. All images stored on PACS. All CT scanners at this facility use dose modulation, iterative reconstruction, and/or weight based d osing when appropriate to reduce radiation dose to as low as reasonably achievable (ALARA). [facility]: Dose Right [facility]: CareDose [facility]: Dose Right [facility]: Teradose 4D [facility]: Regalamos CONTRAST TYPE AND DOSE: contrast/concentration: Isovue 370.00 mg/ml; Total Contrast Delivered: 100.0 ml; Total Saline Delivered: 32.6 ml RENAL FUNCTION: Creatinine 0.82 RADIATION DOSE: Up-to-date CT equipment and radiation dose reduction techniques were employed. CTDIv ol: 19.6 - 20.8 mGy. DLP: 2261 mGy-cm.. LIMITATIONS: None. FINDINGS: LOWER CHEST: No significant findings. No nodules or infiltrates. LIVER: Normal size. No masses. No dilated ducts. A tiny relative low density area is identified in the right lobe of the liver inferiorly which is too small to further characterize by CT. SPLEEN: Normal size. No focal lesions. PANCREAS: No masses. No significant calcifications. No adjacent inflammation or peripancreatic fluid collections. Pancreatic duct not dilated. GALLBLADDER: Status post cholecystectomy. ADRENAL GLANDS: No significant masses or asymmetry. RIGHT KIDNEY AND URETER: No solid masses. No significant calcifications. There is some relative f ullness of the proximal right ureter extending into the pelvis in comparison to the left without defi nite obstruction being identified. No significant hydronephrosis is seen. LEFT KIDNEY AND URETER: No solid masses. No significant calcifications. No hydronephrosis or hydr oureter. AORTA AND VESSELS: No aneurysm. No dissection. Renal arteries, SMA, celiac without stenosis. RETROPERITONEUM: No retroperitoneal adenopathy, hemorrhage or masses. BOWEL AND PERITONEAL CAVITY: No masses or inflammatory changes. No free fluid or peritoneal masses. APPENDIX: Not identified PELVIS: No mass. No free fluid. Normal bladder. There is some prominence of the uterus consistent w ith a uterus. ABDOMINAL WALL: No masses. No hernias. BONES: No significant or acute findings. OTHER: No other significant finding. IMPRESSION: NO SIGNIFICANT OR ACUTE FINDING IN THE ABDOMEN OR PELVIS ON CT SCAN WITH IV CONTRAST. TECHNICAL DOCUMENTATION: JOB ID: [id number] Quality ID # [id number]: Final reports with documentation of one or more dose reduction techniques (e.g., Au tomated exposure control, adjustment of the mA and/or kV according to patient size, use of iterative reconstruction technique) 2010 [employer]- All Rights Reserved
--- NOTE | 2016-10-20 15:26 | ER Document Report ---
ED General - General Chief Complaint: Abdominal Pain Stated Complaint: ABDOMINAL PAIN Time Seen by Provider: 10/20/16 11:14 Mode of Arrival: Ambulatory TRAVEL OUTSIDE OF THE [place] IN LAST 30 DAYS: No - HPI Patient complains to provider of: Right lower quadrant abdominal pain Notes: Patient coming in for evaluation of right lower quadrant abdominal pain ongoing for the last 45 days. Patient had a approximate 4-5 weeks ago has been followed by [facility] for this pain refer to the ER rule out acute appendicitis. Patient denies fevers chills nausea vomiting diarrhea denies anorexia. Patient seen ambulating with no obvious distress. Patient denies any trauma. States that she was unable to have her tubes ligated due to significant scar tissue from previous - Related Data Allergies/Adverse Reactions: No Known Allergies Allergy (Verified 10/20/16 11:10) Past Medical History - General Information source: Patient - Social History Smoking Status: Never Smoker Chew tobacco use (# tins/day): No Frequency of alcohol use: Social Drug Abuse: None Family History: Reviewed & Not Pertinent Patient has suicidal ideation: No Patient has homicidal ideation: No - Past Medical History Cardiac Medical History: Reports: Hx Hypertension - medicated Denies: Hx Heart Attack Pulmonary Medical History: Reports: Hx Asthma - seasonal allergies can cause wheezing. Neurological Medical History: Denies: Hx Cerebrovascular Accident, Hx Seizures Renal/ Medical History: Denies: Hx Peritoneal Dialysis GI Medical History: Denies: Hx Hepatitis, Hx Hiatal Hernia, Hx Ulcer Psychiatric Medical History: Denies: Hx Depression Infectious Medical History: Denies: Hx Hepatitis Past Surgical History: Reports: Hx Section - x2, September 16, 2016, Hx Cholecystectomy, Hx Myringotomy. Denies: Hx Hysterectomy, Hx Mastectomy, Hx Open Heart Surgery, Hx Pacemaker - Immunizations Hx Diphtheria, Pertussis, Tetanus Vaccination: Yes Review of Systems - Review of Systems Constitutional: No symptoms reported EENT: No symptoms reported Cardiovascular: No symptoms reported Respiratory: No symptoms reported Gastrointestinal: Abdominal pain Genitourinary: No symptoms reported Female Genitourinary: No symptoms reported Musculoskeletal: No symptoms reported Skin: No symptoms reported Hematologic/Lymphatic: No symptoms reported Neurological/Psychological: No symptoms reported -: Yes All other systems reviewed and negative Physical Exam - Vital signs Vitals: Temp Pulse Resp BP Pulse Ox 98.2 F 98 22 H 135/89 H 97 10/20/16 11:12 10/20/16 11:12 10/20/16 11:12 10/20/16 11:12 10/20/16 11:12 Interpretation: Normal - General General appearance: Appears well, Alert - HEENT Head: Normocephalic, Atraumatic Eyes: Normal Pupils: PERRL - Respiratory Respiratory status: No respiratory distress Chest status: Nontender Breath sounds: Normal Chest palpation: Normal - Cardiovascular Rhythm: Regular Heart sounds: Normal auscultation Murmur: No - Abdominal Inspection: Normal Distension: No distension Bowel sounds: Normal Tenderness: Tender - Mild tenderness right lower quadrant on the right border of the scar scar is well-healed no signs of obvious infection. Organomegaly: No organomegaly - Back Back: Normal, Nontender - Extremities General upper extremity: Normal inspection, Nontender, Normal color, Normal ROM , Normal temperature General lower extremity: Normal inspection, Nontender, Normal color, Normal ROM , Normal temperature, Normal weight bearing. No: Ubaldo's sign - Neurological Neuro grossly intact: Yes Cognition: Normal Orientation: AAOx4 Lincoln Coma Scale Eye Opening: Spontaneous Jazmyn Coma Scale Verbal: Oriented Lincoln Coma Scale Motor: Obeys Commands Jazmyn Coma Scale Total: 15 Speech: Normal Motor strength normal: LUE, RUE, LLE, RLE Sensory: Normal - Psychological Associated symptoms: Normal affect, Normal mood - Skin Skin Temperature: Warm Skin Moisture: Dry Skin Color: Normal Course - Re-evaluation Re-evalutation: 10/20/16 15:27 The patient presents with abdominal pain without signs of peritonitis or other life-threatening or serious etiology. The patient appears stable for discharge and has been instructed to return immediately if the symptoms worsen in any way , or in 8-12hr if not improved for re-evaluation. The patient has been instructed to return if the symptoms worsen or change in any way. CT scan negative although the appendix is not visualized patient's pain ongoing for a long time should be inflammatory signs. Discussed CT scan with radiology. Patient will be discharged home 10/20/16 15:30 - Vital Signs Vital signs: Temp Pulse Resp BP Pulse Ox 98.2 F 98 22 H 135/89 H 97 10/20/16 11:12 10/20/16 11:12 10/20/16 11:12 10/20/16 11:12 10/20/16 11:12 - Laboratory Result Diagrams: 10/20/16 12:25 10/20/16 13:15 Laboratory results interpreted by me: 10/20/16 13:28 Urine Blood SMALL H Urine Urobilinogen 4.0 H Ur Leukocyte Esterase TRACE H Discharge - Discharge Clinical Impression: Right lower quadrant abdominal pain Condition: Good Disposition: HOME, SELF-CARE Instructions: Abdominal Pain ([facility]), Observation for Appendicitis ([facility]) Additional Instructions: Medication as prescribed return to the ER symptoms worsen Prescriptions: Ondansetron [Zofran Odt 4 mg Tablet] 1 - 2 tab PO Q4H PRN #20 tab.rapdis PRN Reason: For Nausea/Vomiting Tramadol HCl [Ultram 50 mg Tablet] 50 mg PO ASDIR PRN #20 tablet PRN Reason: Forms: Return to Work Referrals: ISAAK MONTANEZ PA [Primary Care Provider] - Follow up as needed
[2016-10-20 17:21] VITALS: BP 132/86
== END 2016-10-20 17:21 | disposition home or self-care (01) ==
LOC: ER 11:01
DX: R10.31 Right lower quadrant pain (principal)
CPT/HCPCS: 36415; 74177; 80053; 81001; 83690; 84702; 85025; 99284

== ENCOUNTER → 2017-01-25 | Outpatient (CLI) | payer OTHER ==
--- NOTE | 2017-01-26 16:27 | XCELERA REPORT ---
[address] [place] [address] Lower Extremity Arterial Evaluation Name: CHRISTINE TSAI Age: 41 yrs Gender: Female : 1975 Patient Status: Outpatient Patient Location: Study Date: 01/25/2017 03:11 PM Procedure: A color flow and duplex scan of the lower extremity arteries was performed bilaterally with velocity and waveform anaylsis. Reason For Study: SWELLING, PAIN Ordering Physician: ISAAK MONTANEZ Performed By: Mesfin Funk Measurements and Calculations Right Left TRANSCRIBING OPERATOR HEAD PSV 149.3 134.5 cm/sec Prox PFA PSV -70.6 -65.1 cm/sec Dist SFA PSV -91.0 -85.5 cm/sec Dist Pop A PSV 67.3 45.6 cm/sec Dist OLEG PSV 59.7 47.8 cm/sec Dist DERMATOLOGY SALES REPRESENTATIVE PSV 61.4 66.4 cm/sec Ulysses Pedis PSV 69.0 59.7 cm/sec Right Side Arterial Evaluation Normal velocity and triphasic waveforms noted from the Common Femoral artery to the infregeniculate vessels. 0 % stenosis noted . Ankle Brachial index is 0.97. Left Side Arterial Evaluation Normal velocity and triphasic waveforms noted from the Common Femoral artery to the infregeniculate vessels. 0 % stenosis noted . Ankle Brachial index is 1.05. Interpretation Summary No hemodynamically significant lesions in the bilateral lower extremities, on duplex imaging, at rest. : ISAAK MONTANEZ > Matthieu Roca
== END ==
LOC: SP 14:40
PROVIDERS: ATTEND Physician Assistant
DX: M79.89 Other specified soft tissue disorders (principal); M79.604 Pain in right leg; M79.605 Pain in left leg
CPT/HCPCS: 93925

== ENCOUNTER → 2017-02-20 | Outpatient (CLI) | payer OTHER ==
[2017-02-20 19:07] LABS: ABSOLUTE BASOPHILS # (AUTO) 0.1 10^3/uL (0.0-0.2); ABSOLUTE EOSINOPHILS # (AUTO) 0.5 10^3/uL (0.0-0.6); ABSOLUTE LYMPHOCYTES (AUTO) 3.1 10^3/uL (0.5-4.7); ABSOLUTE MONOCYTES (AUTO) 0.5 10^3/uL (0.1-1.4); ABSOLUTE NEUT (AUTO) 4.2 10^3/uL (1.7-8.2); BASOPHILS % (AUTO) 0.8 % (0-2); EOSINOPHILS % (AUTO) 6.5 % (0-6); HEMATOCRIT 39.3 % (36.0-47.0); HEMOGLOBIN 13.2 g/dL (12.0-15.5); HGB HCT DIFFERENCE 0.3; LYMPHOCYTES % (AUTO) 36.7 % (13-45); MEAN CORPUSCULAR HEMOGLOBIN 29.5 pg (27.0-33.4); MEAN CORPUSCULAR HGB CONC 33.5 g/dL (32.0-36.0); MEAN CORPUSCULAR VOLUME 88 fl (80-97); MONOCYTES % (AUTO) 6.5 % (3-13); RED BLOOD COUNT 4.46 10^6/uL (3.72-5.28); RED CELL DISTRIBUTION WIDTH 13.8 % (11.5-14.0); SEGMENTED NEUTROPHILS % (AUTO) 49.5 % (42-78); WHITE BLOOD COUNT 8.5 10^3/uL (4.0-10.5)
[2017-02-20 19:28] LABS: ALANINE AMINOTRANSFERASE 30 U/L (9-52); ALBUMIN 4.1 g/dL (3.5-5.0); ALKALINE PHOSPHATASE 53 U/L (38-126); ANION GAP 12 (5-19); ASPARTATE AMINO TRANSFERASE 15 U/L (14-36); BILIRUBIN,DIRECT 0.3 mg/dL (0.0-0.4); BILIRUBIN,TOTAL 0.4 mg/dL (0.2-1.3); BLOOD UREA NITROGEN 11 mg/dL (7-20); CALCIUM 9.1 mg/dL (8.4-10.2); CARBON DIOXIDE 26 mmol/L (22-30); CHLORIDE 102 mmol/L (98-107); CREATININE RESULT 0.81 mg/dL (0.52-1.25); GLUCOSE 90 mg/dL (75-110); LIPASE 151.2 U/L (23-300); POTASSIUM 4.4 mmol/L (3.6-5.0); SODIUM 140.4 mmol/L (137-145)
== END ==
LOC: LAB 18:43
PROVIDERS: ATTEND Physician Assistant
DX: R10.13 Epigastric pain (principal); R82.99 Other abnormal findings in urine
CPT/HCPCS: 36415; 80053; 83690; 85025; 87086

== ENCOUNTER → 2017-02-20 | Outpatient (CLI) | payer OTHER ==
--- NOTE | 2017-02-20 21:22 | RADIOLOGY REPORT (SQ) ---
EXAM DESCRIPTION: CT ABD/PELVIS WITH IV ORAL COMPLETED DATE/TIME: 02/20/2017 9:07 pm REASON FOR STUDY: Lower abdominal pain, unspecified; Nausea R10.13 EPIGASTRIC PAIN R11.0 NAUSEA R1 0.31 RIGHT LOWER QUADRANT PAIN COMPARISON: None. TECHNIQUE: CT scan of the abdomen and pelvis performed with intravenous and oral contrast using kriss mary scanning technique with dynamic intravenous contrast injection. Images reviewed with lung, soft t issue, and bone windows. Reconstructed coronal and sagittal MPR images reviewed. Delayed images for e valuation of the urinary system also acquired. All images stored on PACS. All CT scanners at this facility use dose modulation, iterative reconstruction, and/or weight based d osing when appropriate to reduce radiation dose to as low as reasonably achievable (ALARA). [facility]: Dose Right [facility]: CareDose [facility]: Dose Right [facility]: Teradose 4D [facility]: Spring CONTRAST TYPE AND DOSE: contrast/concentration: Isovue 370.00 mg/ml; Total Contrast Delivered: 100.0 ml; Total Saline Delivered: 66.0 ml RENAL FUNCTION: None required. The patient is less than 50 years old. RADIATION DOSE: Up-to-date CT equipment and radiation dose reduction techniques were employed. CTDIv ol: 23.7 - 25.1 mGy. DLP: 2557 mGy-cm. . LIMITATIONS: None. FINDINGS: LOWER CHEST: No significant findings. No nodules or infiltrates. LIVER: Normal size. No masses. No dilated ducts. SPLEEN: Normal size. No focal lesions. PANCREAS: No masses. No significant calcifications. No adjacent inflammation or peripancreatic fluid collections. Pancreatic duct not dilated. GALLBLADDER: Surgically absent. ADRENAL GLANDS: No significant masses or asymmetry. RIGHT KIDNEY AND URETER: No solid masses. No significant calcifications. No hydronephrosis or hyd roureter. LEFT KIDNEY AND URETER: No solid masses. No significant calcifications. No hydronephrosis or hydr oureter. AORTA AND VESSELS: No aneurysm. No dissection. Renal arteries, SMA, celiac without stenosis. RETROPERITONEUM: No retroperitoneal adenopathy, hemorrhage or masses. BOWEL AND PERITONEAL CAVITY: No obstruction. No visualized masses. No free fluid. No inflammatory ch anges or thickening of bowel wall. APPENDIX: Normal. PELVIS: IUD is in the lower uterine segment extending to the cervix. ABDOMINAL WALL: No masses. No hernias. BONES: No significant or acute findings. OTHER: No other significant finding. IMPRESSION: IUD is in the lower uterine segment extending to the cervix. Otherwise normal study. TECHNICAL DOCUMENTATION: JOB ID: [id number] Quality ID # [id number]: Final reports with documentation of one or more dose reduction techniques (e.g., Au tomated exposure control, adjustment of the mA and/or kV according to patient size, use of iterative reconstruction technique) 2010 [employer]- All Rights Reserved
== END ==
LOC: RAD 18:29
PROVIDERS: ATTEND Physician Assistant
DX: R10.30 Lower abdominal pain, unspecified (principal); R11.0 Nausea
CPT/HCPCS: 36415; 74177; 80053; 83690; 85025; 87086

== ENCOUNTER → 2017-03-30 | Outpatient (CLI) | payer OTHER ==
--- NOTE | 2017-03-30 13:22 | WOMENS IMAGING REPORT ---
EXAM DESCRIPTION: 3D SCREENING MAMMO BILAT COMPLETED DATE/TIME: 03/30/2017 10:15 am REASON FOR STUDY: ROUTINE SCREENING; Z12.31 Z12.31 ENCNTR SCREEN MAMMOGRAM FOR MALIGNANT NEOPLASM O F JOHN COMPARISON: None. TECHNIQUE: Standard craniocaudal and mediolateral oblique views of each breast recorded using digita l acquisition and breast tomosynthesis. LIMITATIONS: None. FINDINGS: No masses, calcifications or architectural distortion. No areas of suspicion. Read with the assistance of CAD. .[facility] - R2 Cenova Version 1.3 .[facility] Imaging - R2 Cenova Version 1.3 .[facility] Imaging - R2 Cenova Version 2.4 .[facility] [place] - R2 Cenova Version 2.4 .[facility] - R2 Punch Press Operator Helper Version 9.2 IMPRESSION: NORMAL MAMMOGRAM. BIRADS 1. BREAST DENSITY: b. There are scattered areas of fibroglandular density. BIRAD: 1 NEGATIVE RECOMMENDATION: ROUTINE SCREENING COMMENT: The patient has been notified of the results by letter per SA requirements. Additional no tification policies are in place for contacting patient with suspicious or incomplete findings. Quality ID #225: The [employer] recommends an annual screening mammogram for women aged 40 years or over. This facility utilizes a reminder system to ensure that all patients receive reminder letters, and/or direct phone calls for appointments. This includes reminders for routine scr eening mammograms, diagnostic mammograms, or other Breast Imaging Interventions when appropriate. Th is patient will be placed in the appropriate reminder system. The [employer] (ACR) has developed recommendations for screening MRI of the breast s in certain patient populations, to be used in conjunction with mammography. Breast MRI surveillanc e may be appropriate for women with more than 20% lifetime risk of developing breast cancer as deter mined by genetic testing, significant family history of the disease, or history of mantle radiation f or Hodgkins Disease. ACR Practice Guidelines 2008. DBT Technology DBT is a type of tomographic mammography. With conventional mammography, overlapping breast tissue ma y make lesions difficult to detect, even with good compression. DBT uses an x-ray tube that rotates a round the breast, taking images at different angles. These images are then combined to create thin sl ices of the breast that the radiologist can view as a 3D reconstruction. The [employer] unit can perform full-field digital mammograms (2D imaging); or DBT (3D imaging); or both, in a combination mode that quickly performs both the mammogram and the tomosynthesis scan while the breast is still compressed. PQRS 6045F: Fluoroscopic imaging is not utilized for breast tomosynthesis. TECHNICAL DOCUMENTATION: FINDING NUMBER: (1) ASSESSMENT: (1) JOB ID: [id number] [employer]- All Rights Reserved
== END ==
LOC: WI 08:54
PROVIDERS: ATTEND Physician Assistant
DX: Z12.31 Encounter for screening mammogram for malignant neoplasm of breast (principal)
CPT/HCPCS: 77063; G0202; 77067

== ENCOUNTER 2018-05-30 22:06 | Emergency (ER) | payer OTHER ==
[2018-05-31] MEDS ORDERED: ONDANSETRON HCL INJ/PF 4 MG/2 ML SDV IV ONE ×3 (00:26→06:55)
[2018-05-31] MEDS ORDERED: MECLIZINE HCL 25 MG TABLET PO ONE ×3 (00:26→06:55)
[2018-05-31] MEDS ORDERED: NORMAL SALINE 1000 ML 1,000 ML IV ONE (00:26)
--- NOTE | 2018-05-31 00:28 | ER Document Report ---
ED Medical Screen (RME) - General Chief Complaint: Vertigo Stated Complaint: WEAKNESS Time Seen by Provider: 05/31/18 00:26 Primary Care Provider: ISAAK MONTANEZ PA [Primary Care Provider] - Follow up as needed Notes: 42-year-old -[place] female with reported numerous ear operations in the past presents tonight with a sudden onset room spinning dizziness with nausea which is worse with positional changes. No recent illness. I have treated and performed a rapid initial assessment of this patient. A comprehensive ED assessment and evaluation of the patient, analysis of test results and completion of medical decision making process will be conducted by additional ED providers. PHYSICAL EXAMINATION: GENERAL: Uncomfortable appearing LUNGS: Breath sounds clear to auscultation bilaterally and equal. No wheezes rales or rhonchi. HEART: Regular rate and rhythm without murmurs, rubs, gallops. ABDOMEN: Soft, nondistended abdomen. No guarding, no rebound. Normal bowel sounds present. No CVA tenderness bilaterally. + mild epigastric tenderness (cannot elicit thorough abd exam w/o table, however). Extremities: No cyanosis, clubbing, or edema b/l. NEUROLOGICAL: Normal speech, normal gait. PSYCH: Normal mood, normal affect. TRAVEL OUTSIDE OF THE [place] IN LAST 30 DAYS: No - Related Data Allergies/Adverse Reactions: No Known Allergies Allergy (Verified 10/20/16 11:10) Past Medical History - Past Medical History Cardiac Medical History: Reports: Hx Hypertension - medicated Denies: Hx Heart Attack Pulmonary Medical History: Reports: Hx Asthma - seasonal allergies can cause wheezing. Neurological Medical History: Denies: Hx Cerebrovascular Accident, Hx Seizures Renal/ Medical History: Denies: Hx Peritoneal Dialysis GI Medical History: Denies: Hx Hepatitis, Hx Hiatal Hernia, Hx Ulcer Psychiatric Medical History: Denies: Hx Depression Infectious Medical History: Denies: Hx Hepatitis Past Surgical History: Reports: Hx Section - x2, September 16, 2016, Hx Cholecystectomy, Hx Myringotomy. Denies: Hx Hysterectomy, Hx Mastectomy, Hx Open Heart Surgery, Hx Pacemaker - Immunizations Hx Diphtheria, Pertussis, Tetanus Vaccination: Yes Physical Exam - Vital signs Vitals: Temp Pulse Resp BP Pulse Ox 98.2 F 88 20 136/77 H 97 05/30/18 22:16 05/30/18 22:16 05/30/18 22:16 05/30/18 22:16 05/30/18 22:16 Course - Vital Signs Vital signs: Temp Pulse Resp BP Pulse Ox 98.2 F 88 20 136/77 H 97 05/30/18 22:16 05/30/18 22:16 05/30/18 22:16 05/30/18 22:16 05/30/18 22:16 Doctor's Discharge - Discharge Referrals: ISAAK MONTANEZ PA [Primary Care Provider] - Follow up as needed
[2018-05-31] MEDS ORDERED: LORAZEPAM INJ 2 MG/1 ML VIAL IV ONE (05:04)
--- NOTE | 2018-05-31 07:01 | ER Document Report ---
ED General - General Chief Complaint: Vertigo Stated Complaint: WEAKNESS Time Seen by Provider: 05/31/18 00:26 Primary Care Provider: ISAAK MONTANEZ PA [Primary Care Provider] - Follow up as needed TRAVEL OUTSIDE OF THE [place] IN LAST 30 DAYS: No - HPI Patient complains to provider of: Dizziness Notes: Patient coming in for evaluation of dizziness. States started acutely last night. Patient states associated with movement states afterwards that she did have multiple episodes of nausea vomiting. Patient states similar to dizziness in the past. Patient denies any recent travel denies any trauma. Patient upon my evaluation states feeling improvement of her symptoms of the receiving medications in triage area. Patient denies any fevers chills resting comfortably. Denies chest pain abdominal pain. - Related Data Allergies/Adverse Reactions: No Known Allergies Allergy (Verified 10/20/16 11:10) Past Medical History - Social History Smoking Status: Never Smoker Chew tobacco use (# tins/day): No Frequency of alcohol use: None Drug Abuse: None Family History: Reviewed & Not Pertinent Patient has suicidal ideation: No Patient has homicidal ideation: No - Past Medical History Cardiac Medical History: Reports: Hx Hypertension - medicated Denies: Hx Heart Attack Pulmonary Medical History: Reports: Hx Asthma - seasonal allergies can cause wheezing. Neurological Medical History: Denies: Hx Cerebrovascular Accident, Hx Seizures Renal/ Medical History: Denies: Hx Peritoneal Dialysis GI Medical History: Denies: Hx Hepatitis, Hx Hiatal Hernia, Hx Ulcer Psychiatric Medical History: Denies: Hx Depression Infectious Medical History: Denies: Hx Hepatitis Past Surgical History: Reports: Hx Section - x2, September 16, 2016, Hx Cholecystectomy, Hx Myringotomy. Denies: Hx Hysterectomy, Hx Mastectomy, Hx Open Heart Surgery, Hx Pacemaker - Immunizations Hx Diphtheria, Pertussis, Tetanus Vaccination: Yes Review of Systems - Review of Systems Constitutional: Other - Dizziness EENT: No symptoms reported Cardiovascular: No symptoms reported Respiratory: No symptoms reported Gastrointestinal: No symptoms reported Genitourinary: No symptoms reported Female Genitourinary: No symptoms reported Musculoskeletal: No symptoms reported Skin: No symptoms reported Hematologic/Lymphatic: No symptoms reported Neurological/Psychological: No symptoms reported -: Yes All other systems reviewed and negative Physical Exam - Vital signs Vitals: Temp Pulse Resp BP Pulse Ox 98.2 F 88 20 136/77 H 97 05/30/18 22:16 05/30/18 22:16 05/30/18 22:16 05/30/18 22:16 05/30/18 22:16 Interpretation: Normal - General General appearance: Appears well, Alert - HEENT Head: Normocephalic, Atraumatic Eyes: Normal Conjunctiva: Normal Cornea: Normal, Flourescein stain uptake Eyelashes: Normal Pupils: PERRL Ears: Normal External canal: Normal Tympanic membrane: Normal Sinus: Normal Nasal: Normal Mouth/Lips: Normal Mucous membranes: Normal Pharynx: Normal Neck: Normal - Respiratory Respiratory status: No respiratory distress Chest status: Nontender Breath sounds: Normal Chest palpation: Normal - Cardiovascular Rhythm: Regular Heart sounds: Normal auscultation Murmur: No - Abdominal Inspection: Normal Distension: No distension Bowel sounds: Normal Tenderness: Nontender Organomegaly: No organomegaly - Back Back: Normal, Nontender - Extremities General upper extremity: Normal inspection, Nontender, Normal color, Normal ROM, Normal temperature General lower extremity: Normal inspection, Nontender, Normal color, Normal ROM, Normal temperature, Normal weight bearing. No: Ubaldo's sign - Neurological Neuro grossly intact: Yes Cognition: Normal Orientation: AAOx4 [place] Coma Scale Eye Opening: Spontaneous Jazmyn Coma Scale Verbal: Oriented [place] Coma Scale Motor: Obeys Commands [place] Coma Scale Total: 15 Speech: Normal Motor strength normal: LUE, RUE, LLE, RLE Sensory: Normal - Psychological Associated symptoms: Normal affect, Normal mood - Skin Skin Temperature: Warm Skin Moisture: Dry Skin Color: Normal Course - Re-evaluation Re-evalutation: 05/31/18 13:31 Patient feeling better at this time. Would recommend performing an appointment with her home along with taking Zofran for any nausea and also Antivert for dizziness. Patient to follow-up primary care physician. - Vital Signs Vital signs: Temp Pulse Resp BP Pulse Ox 97.6 F 85 17 145/87 H 100 05/31/18 07:34 05/31/18 07:34 05/31/18 07:34 05/31/18 07:34 05/31/18 07:34 Discharge - Discharge Clinical Impression: Dizziness Condition: Good Disposition: HOME, SELF-CARE Instructions: Dizziness ([facility]), Vertigo ([facility]) Additional Instructions: Your evaluation today is very consistent with vertigo. I highly recommend performing the Yadi maneuver at least 2-3 times a day. Please take medication as prescribed return to ER symptoms worsen. Prescriptions: Ondansetron [Zofran Odt 4 mg Tablet] 1 - 2 tab PO Q4HP PRN #30 tab.rapdis PRN Reason: Meclizine HCl [Antivert 25 mg Tablet] 25 mg PO TID PRN #30 tablet PRN Reason: Referrals: ISAAK MONTANEZ PA [Primary Care Provider] - Follow up as needed
[2018-05-31 07:38] VITALS: BP 145/87
== END 2018-05-31 07:38 | disposition home or self-care (01) ==
LOC: ER 22:06
DX: R42 Dizziness and giddiness (principal); R11.2 Nausea with vomiting, unspecified; I10 Essential (primary) hypertension; J45.909 Unspecified asthma, uncomplicated
CPT/HCPCS: 96376; 99283; 96361; 96374; 96375; J2060; J2405; J7030

== ENCOUNTER → 2018-07-14 | Outpatient (CLI) | payer OTHER ==
--- NOTE | 2018-07-14 13:23 | RADIOLOGY REPORT (SQ) ---
EXAM DESCRIPTION: C SP 4 OR 5 VIEWS COMPLETED DATE/TIME: 07/14/2018 10:25 am REASON FOR STUDY: CERVICALGIA M54.2 CERVICALGIA COMPARISON: None. NUMBER OF VIEWS: Five views including obliques. TECHNIQUE: AP, lateral, obliques and odontoid radiographic images acquired of the cervical spine. LIMITATIONS: None. FINDINGS: MINERALIZATION: Normal. SEGMENTATION: Normal. ALIGNMENT: Reversal of the lordotic curve. VERTEBRAE: Maintained height. No fracture or worrisome bone lesion. DISCS: Multilevel disc space narrowing with osteophytes. POSTERIOR ELEMENTS: Pedicles and facets are intact. No posterior arch defects. Facet arthropathy is present. FORAMINA: Narrowed at the levels of maximal disc and facet disease. HARDWARE: None in the spine. PARASPINAL SOFT TISSUES: Normal. OTHER: No other significant finding. IMPRESSION: Cervical disc disease. TECHNICAL DOCUMENTATION: JOB ID: [id number] [employer]- All Rights Reserved Reading location - IP/workstation name: [email or web address]
== END ==
LOC: OD 10:07
PROVIDERS: ATTEND Physician Assistant
DX: M50.90 Cervical disc disorder, unspecified, unspecified cervical region (principal)
CPT/HCPCS: 72050

== ENCOUNTER → 2018-12-03 | Outpatient (CLI) | payer OTHER ==
--- NOTE | 2018-12-03 16:25 | WOMENS IMAGING REPORT ---
EXAM DESCRIPTION: 3D SCREENING MAMMO BILAT COMPLETED DATE/TIME: 12/03/2018 2:19 pm REASON FOR STUDY: Z12.31 ENCOUNTER FOR SCREENING MAMMOGRAM FOR MALIGNANT NEOPLASM OF BREAST Z12.31 ENCNTR SCREEN MAMMOGRAM FOR MALIGNANT NEOPLASM OF JOHN COMPARISON: 2017 EXAM PARAMETERS: Views: Standard craniocaudal and mediolateral oblique views of each breast recorded using digital acquisition and breast tomosynthesis. Read with the assistance of CAD. .[facility] - Organizer Pleating Supervisor Version 9.2 LIMITATIONS: None. FINDINGS: No suspicious masses, suspicious calcifications or architectural distortion. No areas of c oncern. IMPRESSION: NEGATIVE MAMMOGRAM. BIRADS 1. BREAST DENSITY: a. The breasts are almost entirely fatty. BIRAD: ASSESSMENT: 1 NEGATIVE RECOMMENDATION: ROUTINE SCREENING COMMENT: The patient has been notified of the results by letter per MQSA requirements. Additional no tification policies are in place for contacting patient with suspicious or incomplete findings. Quality ID #[id number]: The [employer] recommends an annual screening mammogram for women aged 40 years or over. This facility utilizes a reminder system to ensure that all patients receive reminder letters, and/or direct phone calls for appointments. This includes reminders for routine scr eening mammograms, diagnostic mammograms, or other Breast Imaging Interventions when appropriate. Th is patient will be placed in the appropriate reminder system. TECHNICAL DOCUMENTATION: FINDING NUMBER: (1) ASSESSMENT: (1) JOB ID: [id number] [email or web address]- All Rights Reserved Reading location - IP/workstation name: [email or web address]
== END ==
LOC: WI 13:42
PROVIDERS: ATTEND Obstetrics & Gynecology Gynecology
DX: Z12.31 Encounter for screening mammogram for malignant neoplasm of breast (principal)
CPT/HCPCS: 77063; 77067

== ENCOUNTER 2019-01-22 17:33 | Inpatient (IN) | payer OTHER ==
--- NOTE | 2019-01-22 17:51 | ER Document Report ---
ED Medical Screen (RME) - General Stated Complaint: SHORTNESS OF BREATH,CHEST PAIN Time Seen by Provider: 01/22/19 17:49 Primary Care Provider: HUNG MILLS MD [Primary Care Provider] - Follow up as needed Notes: Patient is a 43-year-old female who presents to the emergency department with a chief complaint of chest pain shortness of breath. Her shortness of breath started about last week. Her chest pain started about 48 hours ago. Patient states that she feels like she has a tightness in her chest. She has been taking breathing treatments at home with little relief. Exam: Heart sounds irregular. A. fib with RVR on 12-lead EKG with a heart rate of 152. I have greeted and performed a rapid initial assessment of this patient. A comprehensive ED assessment and evaluation of the patient, analysis of test results and completion of medical decision making process will be conducted by an additional ED providers. TRAVEL OUTSIDE OF THE [place] IN LAST 30 DAYS: No - Related Data Allergies/Adverse Reactions: No Known Allergies Allergy (Verified 10/20/16 11:10) Past Medical History - Past Medical History Cardiac Medical History: Reports: Hx Hypertension - medicated Denies: Hx Heart Attack Pulmonary Medical History: Reports: Hx Asthma - seasonal allergies can cause wheezing. Neurological Medical History: Denies: Hx Cerebrovascular Accident, Hx Seizures Renal/ Medical History: Denies: Hx Peritoneal Dialysis GI Medical History: Denies: Hx Hepatitis, Hx Hiatal Hernia, Hx Ulcer Psychiatric Medical History: Denies: Hx Depression Infectious Medical History: Denies: Hx Hepatitis Past Surgical History: Reports: Hx Section - x2, September 16, 2016, Hx Cholecystectomy, Hx Myringotomy. Denies: Hx Hysterectomy, Hx Mastectomy, Hx Open Heart Surgery, Hx Pacemaker - Immunizations Hx Diphtheria, Pertussis, Tetanus Vaccination: Yes Physical Exam - Vital signs Vitals: Temp Pulse Resp BP Pulse Ox 99.2 F 116 H 20 156/86 H 100 01/22/19 17:38 01/22/19 17:38 01/22/19 17:38 01/22/19 17:38 01/22/19 17:38 Course - Vital Signs Vital signs: Temp Pulse Resp BP Pulse Ox 99.2 F 116 H 20 156/86 H 100 01/22/19 17:38 01/22/19 17:38 01/22/19 17:38 01/22/19 17:38 01/22/19 17:38 Doctor's Discharge - Discharge Referrals: HUNG MILLS MD [Primary Care Provider] - Follow up as needed
[2019-01-22] MEDS ORDERED: DILTIAZEM HCL INJ 25 MG/5 ML VIAL IV ONE (18:00)
--- NOTE | 2019-01-22 18:01 | ER Document Report ---
ED General - General Stated Complaint: SHORTNESS OF BREATH,CHEST PAIN Time Seen by Provider: 01/22/19 17:49 Notes: Patient is a 43-year-old female that presents to the emergency department for chief complaint of shortness of breath and chest tightness. Patient states for the past week she has been feeling more short of breath particular with exertion, and having some chest tightness associated with it. She thought this was her asthma, so she is been using her albuterol inhaler as well as inhaled budesonide without improvement in fact it seemed to worsen her symptoms so she eventually decided come to the emergency department today to have it evaluated. She currently describes her chest tightness is a 1 out of 10, pressure in the middle of the chest. Denies prior history of coronary disease, denies prior history of A. fib, she states she has had a stress test in the past before years ago she states was negative at that time. Past Medical History: Hypertension, asthma Past Surgical History: Neck fusion, cholecystectomy, Social History: Denies tobacco, alcohol or drug use. Family History: Reviewed and noncontributory for presenting illness Allergies: Reviewed, see documented allergy list. REVIEW OF SYSTEMS: Other than noted above, the 12 point review of systems was reviewed with the patient and were negative, all pertinent findings are included in the HPI. PHYSICAL EXAMINATION: Vital signs reviewed, nursing noted reviewed. GENERAL: Well-appearing, well-nourished and in no acute distress. HEAD: Atraumatic, normocephalic. EYES: Eyes appear normal, extraocular movements intact, sclera anicteric, conjunctiva are normal. ENT: nares patent, oropharynx clear without exudates. Moist mucous membranes. NECK: Normal range of motion, supple without lymphadenopathy LUNGS: Breath sounds clear to auscultation bilaterally and equal. No wheezes rales or rhonchi. HEART: Heart rate tachycardic, regular rhythm, no audible murmur. ABDOMEN: Soft, nontender, normoactive bowel sounds. No rebound, guarding, or rigidity. No masses appreciated. EXTREMITIES: Nontender, good range of motion, 1+ bilateral pitting edema to the lower extremities, no erythema. NEUROLOGICAL: No focal neurological deficits. Moves all extremities spontan eously Motor and sensory grossly intact on exam. PSYCH: Normal mood, normal affect. SKIN: Warm, Dry, normal turgor, no rashes or lesions noted on exposed skin TRAVEL OUTSIDE OF THE [place] IN LAST 30 DAYS: No - Related Data Allergies/Adverse Reactions: No Known Allergies Allergy (Verified 10/20/16 11:10) Past Medical History - Social History Smoking Status: Never Smoker Family History: Reviewed & Not Pertinent - Past Medical History Cardiac Medical History: Reports: Hx Hypertension - medicated Denies: Hx Heart Attack Pulmonary Medical History: Reports: Hx Asthma - seasonal allergies can cause wheezing. Neurological Medical History: Denies: Hx Cerebrovascular Accident, Hx Seizures Renal/ Medical History: Denies: Hx Peritoneal Dialysis GI Medical History: Denies: Hx Hepatitis, Hx Hiatal Hernia, Hx Ulcer Psychiatric Medical History: Denies: Hx Depression Infectious Medical History: Denies: Hx Hepatitis Past Surgical History: Reports: Hx Section - x2, September 16, 2016, Hx Cholecystectomy, Hx Myringotomy. Denies: Hx Hysterectomy, Hx Mastectomy, Hx Open Heart Surgery, Hx Pacemaker - Immunizations Hx Diphtheria, Pertussis, Tetanus Vaccination: Yes Physical Exam - Vital signs Vitals: Temp Pulse Resp BP Pulse Ox 99.2 F 116 H 20 156/86 H 100 01/22/19 17:38 01/22/19 17:38 01/22/19 17:38 01/22/19 17:38 01/22/19 17:38 Course - Re-evaluation Re-evalutation: Patient seen and examined vital signs reviewed. Laboratory data and imaging were ordered as appropriate for the patient's presenting symptoms and complaint, with consideration of any critical or life threatening conditions that may be associated with their obtained history and exam as noted above. Patient was treated with IV Cardizem bolus and infusion Results were reviewed when available and demonstrated unremarkable blood work, negative chest x-ray EKG demonstrating A. fib with RVR as noted The patient was re-evaluated and was stable, she was intermittently converting to sinus tachycardia on the Cardizem infusion, blood pressure remained stable Evaluation was most consistent with new onset atrial fibrillation with rapid ventricular response, will defer to hospitalist team regarding anticoagulation in this patient. Results were discussed with the patient at this point after careful consideration I feel that that patient should be admitted to the hospital. This was discussed with the patient that it is in the best interest for their care to be admitted for further evaluation and management. Patient agreed with this plan of care. A call was placed to the admitting physician, Dr. Daniels who graciously accepted the patient onto their service. *Note is created using voice recognition software and may contain spelling, s yntax or grammatical errors. Laboratory 01/22/19 01/22/19 01/22/19 18:03 18:03 18:03 WBC 8.8 RBC 4.61 Hgb 13.2 Hct 40.3 MCV 88 MCH 28.6 MCHC 32.7 RDW 13.4 Plt Count 409 Lymph % (Auto) 31.1 [place] % (Auto) 5.5 Eos % (Auto) 4.1 Baso % (Auto) 1.2 Absolute Neuts (auto) 5.1 Absolute Lymphs (auto) 2.7 Absolute Monos (auto) 0.5 Absolute Eos (auto) 0.4 Absolute Basos (auto) 0.1 Seg Neutrophils % 58.1 Sodium 138.4 Potassium 4.0 Chloride 99 Carbon Dioxide 29 Anion Gap 10 BUN 12 Creatinine 0.82 Est GFR ( Amer) > 60 Est GFR (MDRD) Non-Af > 60 Glucose 93 Calcium 9.8 Magnesium 1.9 Total Bilirubin 0.5 Direct Bilirubin 0.3 Neonat Total Bilirubin Not Reportable Neonat Direct Bilirubin Not Reportable Neonat Indirect Bili Not Reportable AST 29 ALT 22 Alkaline Phosphatase 57 Creatine Kinase 172 H CK-MB (CK-2) 1.28 Troponin I < 0.012 Total Protein 7.9 Albumin 4.4 TSH Free T4 Free T3 pg/mL Serum HCG, Qual Urine Color Urine Appearance Urine pH Ur Specific [place] Urine Protein Urine Glucose (UA) Urine Ketones Urine Blood Urine Nitrite Urine Bilirubin Urine Urobilinogen Ur Leukocyte Esterase Urine WBC (Auto) Urine RBC (Auto) Urine Bacteria (Auto) Squamous Epi Cells Auto Urine Mucus (Auto) Urine Ascorbic Acid 01/22/19 01/22/19 01/22/19 18:03 18:03 18:03 WBC RBC Hgb Hct MCV MCH MCHC RDW Plt Count Lymph % (Auto) [place] % (Auto) Eos % (Auto) Baso % (Auto) Absolute Neuts (auto) Absolute Lymphs (auto) Absolute Monos (auto) Absolute Eos (auto) Absolute Basos (auto) Seg Neutrophils % Sodium Potassium Chloride Carbon Dioxide Anion Gap BUN Creatinine Est GFR ( Amer) Est GFR (MDRD) Non-Af Glucose Calcium Magnesium Total Bilirubin Direct Bilirubin Neonat Total Bilirubin Neonat Direct Bilirubin Neonat Indirect Bili AST ALT Alkaline Phosphatase Creatine Kinase CK-MB (CK-2) Troponin I Total Protein Albumin TSH 1.34 Free T4 1.19 Free T3 pg/mL 3.47 Serum HCG, Qual NEGATIVE Urine Color Urine Appearance Urine pH Ur Specific [place] Urine Protein Urine Glucose (UA) Urine Ketones Urine Blood Urine Nitrite Urine Bilirubin Urine Urobilinogen Ur Leukocyte Esterase Urine WBC (Auto) Urine RBC (Auto) Urine Bacteria (Auto) Squamous Epi Cells Auto Urine Mucus (Auto) Urine Ascorbic Acid 01/22/19 18:03 WBC RBC Hgb Hct MCV MCH MCHC RDW Plt Count Lymph % (Auto) [place] % (Auto) Eos % (Auto) Baso % (Auto) Absolute Neuts (auto) Absolute Lymphs (auto) Absolute Monos (auto) Absolute Eos (auto) Absolute Basos (auto) Seg Neutrophils % Sodium Potassium Chloride Carbon Dioxide Anion Gap BUN Creatinine Est GFR ( Amer) Est GFR (MDRD) Non-Af Glucose Calcium Magnesium Total Bilirubin Direct Bilirubin Neonat Total Bilirubin Neonat Direct Bilirubin Neonat Indirect Bili AST ALT Alkaline Phosphatase Creatine Kinase CK-MB (CK-2) Troponin I Total Protein Albumin TSH Free T4 Free T3 pg/mL Serum HCG, Qual Urine Color JAY JAY Urine Appearance TURBID Urine pH 5.0 Ur Specific [place] 1.017 Urine Protein NEGATIVE Urine Glucose (UA) NEGATIVE Urine Ketones NEGATIVE Urine Blood MODERATE H Urine Nitrite NEGATIVE Urine Bilirubin NEGATIVE Urine Urobilinogen NEGATIVE Ur Leukocyte Esterase LARGE H Urine WBC (Auto) 3 Urine RBC (Auto) 4 Urine Bacteria (Auto) TRACE Squamous Epi Cells Auto 9 Urine Mucus (Auto) RARE Urine Ascorbic Acid NEGATIVE Chest X-Ray 01/22/19 17:49 IMPRESSION: NO ACUTE RADIOGRAPHIC FINDING IN THE CHEST. - Vital Signs Vital signs: Temp Pulse Resp BP Pulse Ox 97.5 F 87 20 141/78 H 97 01/23/19 00:16 01/23/19 02:00 01/23/19 00:16 01/23/19 02:00 01/23/19 00:16 - Laboratory Result Diagrams: 01/22/19 18:03 01/22/19 18:03 Laboratory results interpreted by me: 01/22/19 01/22/19 18:03 18:03 Creatine Kinase 172 H Urine Blood MODERATE H Ur Leukocyte Esterase LARGE H - EKG Interpretation by Me Additional EKG results interpreted by me: EKG demonstrates atrial fibrillation with a ventricular rate of 152 bpm, normal axis, QTC 471 ms, slight T wave depressions in leads I, II and aVF aVL and lead III, this is compared with the prior EKG from 10/01/2016, with significant change. Critical Care Note - Critical Care Note Total time excluding time spent on procedures (mins): 35 Comments: Critical care time 35 minutes exclusive from separate billable procedures for a patient requiring complex medical decision making, and high potential for clinical deterioration. In a patient with atrial fibrillation with rapid ventricular response requiring Cardizem infusion. Time spent obtaining history from patient or surrogate, discussions with consultants, development of treatment plan with patient or surrogate, evaluation of patient's response to treatment, examination of patient, ordering and performing treatments and interventions, ordering and review of laboratory studies, re-evaluation of patient's condition, ordering and review of radiographic studies and review of old charts Discharge - Discharge Clinical Impression: Atrial fibrillation with RVR Condition: Stable Disposition: ADMITTED INPATIENT Admitting Provider: Frances (Hospitalist) Unit Admitted: Telemetry
--- NOTE | 2019-01-22 18:08 | EKG REPORT ---
SEVERITY:- ABNORMAL ECG - ATRIAL FIBRILLATION, V-RATE 103-181 BORDERLINE T ABNORMALITIES, DIFFUSE LEADS : Confirmed by: Kimberley Lopez 22-Jan-2019 18:07:51
[2019-01-22] MEDS: DILTIAZEM HCL/D5W 125 MG/125 ML RTUINJ IV PRN ×2 (18:17→21:46)
[2019-01-22 18:18] LABS: ABSOLUTE BASOPHILS # (AUTO) 0.1 10^3/uL (0.0-0.2); ABSOLUTE EOSINOPHILS # (AUTO) 0.4 10^3/uL (0.0-0.6); ABSOLUTE LYMPHOCYTES (AUTO) 2.7 10^3/uL (0.5-4.7); ABSOLUTE MONOCYTES (AUTO) 0.5 10^3/uL (0.1-1.4); ABSOLUTE NEUT (AUTO) 5.1 10^3/uL (1.7-8.2); BASOPHILS % (AUTO) 1.2 % (0-2); EOSINOPHILS % (AUTO) 4.1 % (0-6); HEMATOCRIT 40.3 % (36.0-47.0); HEMOGLOBIN 13.2 g/dL (12.0-15.5); LYMPHOCYTES % (AUTO) 31.1 % (13-45); MEAN CORPUSCULAR HEMOGLOBIN 28.6 pg (27.0-33.4); MEAN CORPUSCULAR HGB CONC 32.7 g/dL (32.0-36.0); MEAN CORPUSCULAR VOLUME 88 fl (80-97); MONOCYTES % (AUTO) 5.5 % (3-13); PLATELET COUNT 409 10^3/uL (150-450); RED BLOOD COUNT 4.61 10^6/uL (3.72-5.28); RED CELL DISTRIBUTION WIDTH 13.4 % (11.5-14.0); SEGMENTED NEUTROPHILS % (AUTO) 58.1 % (42-78); TOTAL CELLS COUNTED % (AUTO) 100 %; WHITE BLOOD COUNT 8.8 10^3/uL (4.0-10.5)
[2019-01-22 18:39] LABS: ALBUMIN 4.4 g/dL (3.5-5.0); ALKALINE PHOSPHATASE 57 U/L (38-126); ANION GAP 10 (5-19); ASPARTATE AMINO TRANSFERASE 29 U/L (14-36); BILIRUBIN,DIRECT 0.3 mg/dL (0.0-0.4); BILIRUBIN,TOTAL 0.5 mg/dL (0.2-1.3); BLOOD UREA NITROGEN 12 mg/dL (7-20); CALCIUM 9.8 mg/dL (8.4-10.2); CARBON DIOXIDE 29 mmol/L (22-30); CHLORIDE 99 mmol/L (98-107); CREATINE KINASE 172 U/L (30-135); GLUCOSE 93 mg/dL (75-110); TOTAL PROTEIN 7.9 g/dL (6.3-8.2)
[2019-01-22 18:50] LABS: CREATINE KINASE MB 1.28 ng/mL (<4.55)
[2019-01-22 18:51] LABS: TROPONIN I < 0.012 ng/mL
--- NOTE | 2019-01-22 19:07 | RADIOLOGY REPORT (SQ) ---
EXAM DESCRIPTION: CHEST SINGLE VIEW COMPLETED DATE/TIME: 01/22/2019 6:29 pm REASON FOR STUDY: chest pain COMPARISON: 12/25/2015 EXAM PARAMETERS: NUMBER OF VIEWS: One view. TECHNIQUE: Single frontal radiographic view of the chest acquired. RADIATION DOSE: NA LIMITATIONS: None. FINDINGS: LUNGS AND PLEURA: No opacities, masses or pneumothorax. No pleural effusion. MEDIASTINUM AND HILAR STRUCTURES: No masses. Contour normal. HEART AND VASCULAR STRUCTURES: Heart normal in size. Normal vasculature. BONES: No acute findings. HARDWARE: None in the chest. OTHER: No other significant finding. IMPRESSION: NO ACUTE RADIOGRAPHIC FINDING IN THE CHEST. TECHNICAL DOCUMENTATION: JOB ID: [id number] [employer] All Rights Reserved Reading location - IP/workstation name: [email or web address]
[2019-01-22] MEDS ORDERED: MAG HYDROX/AL HYDROX/SIMETH SUSP 30 ML UDCUP PO PRN (21:08)
[2019-01-22] MEDS ORDERED: ONDANSETRON HCL INJ/PF 4 MG/2 ML SDV IV PRN (21:08)
[2019-01-22] MEDS ORDERED: ONDANSETRON 4 MG TAB.RAPDIS PO PRN (21:08)
[2019-01-22] MEDS ORDERED: MAGNESIUM HYDROXIDE SUSP 30 ML UDCUP PO PRN (21:08)
[2019-01-22] MEDS ORDERED: LABETALOL HCL INJ 20 MG/4 ML DISP.SYRIN IV PRN (21:15)
[2019-01-22] MEDS ORDERED: NALBUPHINE HCL INJ 10 MG/1 ML AMPULE IV PRN ×3 (21:15→21:25)
[2019-01-22 21:58] LABS: FREE T3 3.47 pg/mL (2.77-5.27); FREE T4 (FREE THYROXINE) 1.19 ng/dL (0.78-2.19)
[2019-01-22] MEDS ORDERED: DILTIAZEM HCL 30 MG TABLET PO ONE ×2 (22:00)
[2019-01-22] MEDS: FAMOTIDINE 20 MG TABLET PO SCH (22:11)
[2019-01-22] MEDS ORDERED: FLUTICASONE NASAL SPRAY 50 MCG/SPRY 120 SPRAY/16 GM NASL PRN (22:12)
[2019-01-22] MEDS ORDERED: APIXABAN 5 MG TABLET PO ONE (22:14)
[2019-01-22 22:22] LABS: APPEARANCE,URINE TURBID; BILIRUBIN,URINE NEGATIVE (NEGATIVE); COLOR,URINE AMBER; GLUCOSE, URINE NEGATIVE (NEGATIVE); KETONES,URINE NEGATIVE (NEGATIVE); LEUKOCYTE ESTERASE,URINE LARGE (NEGATIVE); NITRITE,URINE NEGATIVE (NEGATIVE); PROTEIN,URINE NEGATIVE (NEGATIVE); URINE SPECIFIC GRAVITY 1.017; UROBILINOGEN,URINE NEGATIVE mg/dL (<2.0)
[2019-01-23 00:51] LABS: CREATINE KINASE MB 1.07 ng/mL (<4.55)
[2019-01-23 00:54] LABS: TROPONIN I < 0.012 ng/mL
[2019-01-23] MEDS ORDERED: DILTIAZEM HCL 90 MG TABLET ONE ×2 (01:17→05:10)
[2019-01-23] MEDS: DILTIAZEM HCL 90 MG TABLET PO SCH ×2 (01:23→05:21)
[2019-01-23] MEDS: ACETAMINOPHEN 325 MG TABLET PO PRN (01:27)
[2019-01-23 04:18] LABS: CREATINE KINASE MB 1.03 ng/mL (<4.55); TROPONIN I < 0.012 ng/mL
--- NOTE | 2019-01-23 05:09 | PDOC H&P ---
History of Present Illness Admission Date/PCP: 01/22/19 20:10 [place] MD Patient complains of: Dyspnea History of Present Illness: CHRISTINE RIVAS is a 43 year old female who presented to the emergency room with a one-week history of dyspnea. She admits developing dyspnea 1 week ago and developed chest tightness over the last 2 days. She felt as though this was an asthma attack and used her home asthma treatments without improvement. Her dyspnea and chest tightness are worsened with exertion. She describes her dyspnea as moderate and her chest tightness as mild. She denies other associated or accompanying signs and symptoms. She admits prior similar episodes with asthma attacks in the past but has been concerned because of the length of time the symptoms have been present and the failure to improve with her usual asthma medication. She has not identified any additional aggravating or ameliorating factors for her dyspnea. In the emergency room she was found to have atrial fibrillation with a rapid ventricular response of 152 bpm. She was treated with IV Cardizem and showed a good response to bolus and infusion therapy. The remainder of her emergency room evaluation was unremarkable. Patient was subsequently admitted to [facility] for further evaluation and treatment. Past Medical History Cardiac Medical History: Reports: Hypertension - medicated Denies: Atrial Fibrillation, Coronary Artery Disease, DVT, Myocardial Infarction, Pulmonary Embolism Pulmonary Medical History: Reports: Asthma - seasonal allergies can cause wheezing., Sleep Apnea Denies: Chronic Obstructive Pulmonary Disease (COPD) EENT Medical History: Reports: Nose - Allergic rhinitis Denies: Cataracts, Ears - Hearing aids Neurological Medical History: Denies: Hemorrhagic CVA, Ischemic CVA, Multiple Sclerosis, Seizures Endocrine Medical History: Reports: Obesity Denies: Diabetes Mellitus Type 1, Diabetes Mellitus Type 2, Hyperthyroidism, Hypothyroidism Renal/ Medical History: Denies: Chronic Kidney Disease, Nephrolithiasis Malignancy Medical History: Reports: None GI Medical History: Denies: Cirrhosis, Crohn's Disease, Gastroesophageal Reflux Disease, Hepatitis, Hiatal Hernia, Peptic Ulcer Disease, Ulcerative Colitis Musculoskeltal Medical History: Denies: Arthritis, Fibromyalgia Skin Medical History: Denies: Eczema, Psoriasis Psychiatric Medical History: Denies: Alcohol Dependency, Depression, Substance Abuse, Tobacco Dependency Traumatic Medical History: Reports: None Hematology: Denies: Anemia, Bleeding Tendencies Infectious Medical History: Reports: None Past Surgical History Past Surgical History: Reports: Section - x2, September 16, 2016, Cholecystectomy Social History Information Source: Patient Lives with: Family, Spouse/Significant other Smoking Status: Never Smoker Electronic Cigarette use?: No Frequency of Alcohol Use: None Hx Recreational Drug Use: No Drugs: None Hx Prescription Drug Abuse: No - Advance Directive Resuscitation Status: Full Code Surrogate healthcare decision maker:: Ezequiel Rivas Family History Family History: CAD, DM, Hypertension, Malignancy, Other - Asthma Parental Family History Reviewed: Yes Children Family History Reviewed: No Sibling(s) Family History Reviewed.: Yes Medication/Allergy Home Medications: Cyclobenzaprine HCl [Flexeril 10 mg Tablet] 10 mg PO Q8HP PRN 01/22/19 Fluticasone Propionate [Flonase Nasal Tignall 50 Mcg/Tignall 16 gm] 1 spray NASL MATTHEW LYP PRN 01/22/19 Levocetirizine Dihydrochloride [Xyzal] 5 mg PO QPM 01/22/19 Losartan/Hydrochlorothiazide [Hyzaar 50-12.5 Tablet] 1 tab PO DAILY 01/22/19 Ondansetron [Ondansetron Odt] 8 mg PO Q8HP PRN 01/22/19 Oxycodone HCl 5 ml PO Q8HP PRN 01/22/19 Allergies/Adverse Reactions: No Known Allergies Allergy (Verified 10/20/16 11:10) Review of Systems Constitutional: ABSENT: chills, fever(s) Eyes: ABSENT: visual disturbances, other - Eye pain Ears: ABSENT: hearing changes, other - Ear pain Nose, Mouth, and Throat: ABSENT: headache(s), mouth pain, sore throat Cardiovascular: PRESENT: as per HPI, chest pain - Tightness, dyspnea on exertion. ABSENT: edema, orthropnea, palpitations Respiratory: PRESENT: as per HPI, dyspnea. ABSENT: cough Gastrointestinal: ABSENT: abdominal pain, constipation, diarrhea, nausea, vomiting Genitourinary: ABSENT: dysuria, hematuria Musculoskeletal: ABSENT: back pain, joint swelling, muscle weakness Integumentary: ABSENT: pruritus, rash Neurological: ABSENT: confusion, convulsions, focal weakness, memory loss, syncope Psychiatric: ABSENT: anxiety, depression Endocrine: ABSENT: cold intolerance, heat intolerance Hematologic/Lymphatic: ABSENT: easy bleeding, easy bruising Allergic/Immunologic: PRESENT: seasonal rhinorrhea Physical Exam Vital Signs: Temp Pulse Resp BP Pulse Ox 99.2 F 116 H 17 134/94 H 99 10/15/19 17:38 01/22/19 17:38 01/22/19 19:01 01/22/19 19:01 01/22/19 19:01 Intake & Output 01/20/19 01/21/19 01/22/19 23:59 23:59 23:59 Intake Total 4 Balance 4 Weight 149 kg Results Laboratory Results: 01/22/19 18:03 01/22/19 18:03 01/22/19 01/22/19 01/22/19 18:03 18:03 18:03 WBC 8.8 RBC 4.61 Hgb 13.2 Hct 40.3 MCV 88 MCH 28.6 MCHC 32.7 RDW 13.4 Plt Count 409 Seg Neutrophils % 58.1 Sodium 138.4 Potassium 4.0 Chloride 99 Carbon Dioxide 29 Anion Gap 10 BUN 12 Creatinine 0.82 Est GFR ( Amer) > 60 Glucose 93 Calcium 9.8 Magnesium 1.9 Total Bilirubin 0.5 AST 29 Alkaline Phosphatase 57 Total Protein 7.9 Albumin 4.4 TSH 1.34 Serum HCG, Qual 01/22/19 18:03 WBC RBC Hgb Hct MCV MCH MCHC RDW Plt Count Seg Neutrophils % Sodium Potassium Chloride Carbon Dioxide Anion Gap BUN Creatinine Est GFR ( Amer) Glucose Calcium Magnesium Total Bilirubin AST Alkaline Phosphatase Total Protein Albumin TSH Serum HCG, Qual NEGATIVE 01/22/19 01/22/19 18:03 18:03 Creatine Kinase 172 H CK-MB (CK-2) 1.28 Troponin I < 0.012 Impressions: Chest X-Ray 01/22/19 17:49 IMPRESSION: NO ACUTE RADIOGRAPHIC FINDING IN THE CHEST. Assessment and Plan - Diagnosis (1) Atrial fibrillation with RVR Is this a current diagnosis for this admission?: Yes Plan: Patient be treated with a Cardizem infusion until she can be converted to oral Cardizem therapy. She will be monitored on telemetry throughout her hospital course. Serial cardiac enzymes will be obtained as will a thyroid profile and serial metabolic profiles and CBCs. Patient will be started on anticoagulant therapy and a cardiology consultation will be obtained. (2) Essential hypertension Is this a current diagnosis for this admission?: Yes Plan: Patient will be treated for hypertension with medications that will help to c ontrol her cardiac rhythm and rate. This will most likely involve changing from her current medications. Her blood pressure was monitored closely throughout her hospital course. (3) Obstructive sleep apnea Is this a current diagnosis for this admission?: Yes Plan: Patient will be treated with CPAP at night and while sleeping for adequate therapy of her obstructive sleep apnea. Her home settings will be used if available. (4) Morbid obesity Is this a current diagnosis for this admission?: Yes Plan: A community board member consultation will be obtained for evaluation and recommended dietary treatment of the patient's obesity. - Time Time Spent with patient: 25-34 minutes Medications reviewed and adjusted accordingly: Yes Anticipated discharge: Home - Inpatient Certification Based on my medical assessment, after consideration of the patient's comorbidities, presenting symptoms, or acuity I expect that the services needed warrant INPATIENT care.: Yes I certify that my determination is in accordance with my understanding of Medicare's requirements for reasonable and necessary INPATIENT services [42 CFR 412.3e].: Yes Medical Necessity: Need Close Monitoring Due to Risk of Patient Decompensation, Need For Continuous Telemetry Monitoring, Risk of Complication if Not Cared For in Hospital
[2019-01-23] MEDS: LEVALBUTEROL HCL NEB 0.63 MG/3 ML AMPUL NEB PRN (07:32)
[2019-01-23] MEDS: BUDESONIDE NEB 0.5 MG/2 ML AMPUL NEB SCH ×2 (07:33→20:31)
[2019-01-23 07:39] LABS: HEMATOCRIT 36.7 % (36.0-47.0); HEMOGLOBIN 12.2 g/dL (12.0-15.5); MEAN CORPUSCULAR HEMOGLOBIN 29.1 pg (27.0-33.4); MEAN CORPUSCULAR HGB CONC 33.3 g/dL (32.0-36.0); MEAN CORPUSCULAR VOLUME 87 fl (80-97); PLATELET COUNT 388 10^3/uL (150-450); RED CELL DISTRIBUTION WIDTH 13.2 % (11.5-14.0); WHITE BLOOD COUNT 7.2 10^3/uL (4.0-10.5)
[2019-01-23 07:58] LABS: ANION GAP 10 (5-19); BLOOD UREA NITROGEN 11 mg/dL (7-20); CALCIUM 9.4 mg/dL (8.4-10.2); CARBON DIOXIDE 25 mmol/L (22-30); CHLORIDE 101 mmol/L (98-107); CHOLESTEROL 152.77 mg/dL (0-200); GLUCOSE 106 mg/dL (75-110); TRIGLYCERIDES 113 mg/dL (<150)
[2019-01-23 08:08] LABS: DIRECT LDL 110 mg/dL (<100)
[2019-01-23] MEDS: HYDROCHLOROTHIAZIDE 12.5 MG TABLET PO SCH (08:27)
--- NOTE | 2019-01-23 09:23 | PDOC PROGRESS REPORT ---
Subjective Progress Note for:: 01/23/19 Subjective:: 01/23/2019-swelling of bilateral lower extremities Reason For Visit: NEW ONSET ATRIAL FIBRILLATION WITH RAPID Physical Exam Vital Signs: Temp Pulse Resp BP Pulse Ox 98.3 F 66 18 133/51 H 98 01/23/19 08:00 01/23/19 08:00 01/23/19 08:00 01/23/19 08:00 01/23/19 08:00 Intake & Output 01/22/19 01/23/19 01/24/19 06:59 06:59 06:59 Intake Total 518 Balance 518 Weight 148.2 kg General appearance: PRESENT: no acute distress, well-developed, well-nourished Neck exam: ABSENT: carotid bruit, JVD, lymphadenopathy, thyromegaly Respiratory exam: PRESENT: clear to auscultation dario. ABSENT: rales, rhonchi, wheezes Cardiovascular exam: PRESENT: RRR. ABSENT: diastolic murmur, rubs, systolic murmur Pulses: PRESENT: normal dorsalis pedis pul GI/Abdominal exam: PRESENT: normal bowel sounds, soft. ABSENT: distended, guarding, mass, organolmegaly, rebound, tenderness Extremities exam: PRESENT: +1 edema Neurological exam: PRESENT: alert, awake, oriented to person, oriented to place, oriented to time, oriented to situation, CN II-XII grossly intact. ABSENT: motor sensory deficit Psychiatric exam: PRESENT: appropriate affect, normal mood. ABSENT: homicidal ideation, suicidal ideation Skin exam: PRESENT: dry, intact, warm. ABSENT: cyanosis, rash Results Laboratory Results: 01/23/19 07:00 01/23/19 07:00 01/22/19 01/22/19 01/22/19 18:03 18:03 18:03 WBC 8.8 RBC 4.61 Hgb 13.2 Hct 40.3 MCV 88 MCH 28.6 MCHC 32.7 RDW 13.4 Plt Count 409 Seg Neutrophils % 58.1 Sodium 138.4 Potassium 4.0 Chloride 99 Carbon Dioxide 29 Anion Gap 10 BUN 12 Creatinine 0.82 Est GFR ( Amer) > 60 Glucose 93 Calcium 9.8 Magnesium 1.9 Total Bilirubin 0.5 AST 29 Alkaline Phosphatase 57 Total Protein 7.9 Albumin 4.4 Triglycerides Cholesterol LDL Cholesterol Direct VLDL Cholesterol HDL Cholesterol TSH 1.34 Free T4 Free T3 pg/mL Serum HCG, Qual Urine Color Urine Appearance Urine pH Ur Specific [place] Urine Protein Urine Glucose (UA) Urine Ketones Urine Blood Urine Nitrite Ur Leukocyte Esterase Urine WBC (Auto) Urine RBC (Auto) 01/22/19 01/22/19 01/22/19 18:03 18:03 18:03 WBC RBC Hgb Hct MCV MCH MCHC RDW Plt Count Seg Neutrophils % Sodium Potassium Chloride Carbon Dioxide Anion Gap BUN Creatinine Est GFR ( Amer) Glucose Calcium Magnesium Total Bilirubin AST Alkaline Phosphatase Total Protein Albumin Triglycerides Cholesterol LDL Cholesterol Direct VLDL Cholesterol HDL Cholesterol TSH Free T4 1.19 Free T3 pg/mL 3.47 Serum HCG, Qual NEGATIVE Urine Color JAY JAY Urine Appearance TURBID Urine pH 5.0 Ur Specific [place] 1.017 Urine Protein NEGATIVE Urine Glucose (UA) NEGATIVE Urine Ketones NEGATIVE Urine Blood MODERATE H Urine Nitrite NEGATIVE Ur Leukocyte Esterase LARGE H Urine WBC (Auto) 3 Urine RBC (Auto) 4 01/23/19 01/23/19 07:00 07:00 WBC 7.2 RBC 4.20 Hgb 12.2 Hct 36.7 MCV 87 MCH 29.1 MCHC 33.3 RDW 13.2 Plt Count 388 Seg Neutrophils % Sodium 136.0 L Potassium 4.0 Chloride 101 Carbon Dioxide 25 Anion Gap 10 BUN 11 Creatinine 0.78 Est GFR ( Amer) > 60 Glucose 106 Calcium 9.4 Magnesium 1.9 Total Bilirubin AST Alkaline Phosphatase Total Protein Albumin Triglycerides 113 Cholesterol 152.77 LDL Cholesterol Direct 110 H VLDL Cholesterol 23.0 HDL Cholesterol 31 L TSH Free T4 Free T3 pg/mL Serum HCG, Qual Urine Color Urine Appearance Urine pH Ur Specific [place] Urine Protein Urine Glucose (UA) Urine Ketones Urine Blood Urine Nitrite Ur Leukocyte Esterase Urine WBC (Auto) Urine RBC (Auto) 01/22/19 01/22/19 01/22/19 18:03 18:03 23:55 Creatine Kinase 172 H 162 H CK-MB (CK-2) 1.28 Troponin I < 0.012 01/22/19 01/23/19 01/23/19 23:55 03:22 03:32 Creatine Kinase 146 H CK-MB (CK-2) 1.07 1.03 Troponin I < 0.012 < 0.012 Impressions: Chest X-Ray 01/22/19 17:49 IMPRESSION: NO ACUTE RADIOGRAPHIC FINDING IN THE CHEST. Assessment and Plan - Plan Summary Summary: 01/23/2019- Atrial fibrillation with RVR-patient is sinus rhythm at this time. We will continue p.o. Cardizem. Eliquis. Continue to monitor Essential hypertension-continue home medication continue Cardizem Obstructive sleep apnea-patient is on CPAP. Last evaluation was probably 5 years ago. Will have patient follow-up with Dr. Lopez on discharge for possible follow-up sleep study Morbid obesity continue to educate about the importance of dietary restriction Type 2 diabetes mellitus-metformin 500 mg p.o. daily Dyslipidemia-atorvastatin 10 mg p.o. daily - Time Time Spent with patient: 15-24 minutes - Inpatient Certification Based on my medical assessment, after consideration of the patient's comorbidities, presenting symptoms, or acuity I expect that the services needed warrant INPATIENT care.: Yes I certify that my determination is in accordance with my understanding of Medicare's requirements for reasonable and necessary INPATIENT services [42 CFR 412.3e].: Yes Medical Necessity: Other - Monitor for medication changes
[2019-01-23] MEDS: DOCUSATE SODIUM 100 MG CAPSULE PO SCH ×2 (10:07→17:36)
[2019-01-23] MEDS: FAMOTIDINE 20 MG TABLET PO SCH ×2 (10:08→21:17)
[2019-01-23] MEDS: LOSARTAN POTASSIUM 50 MG TABLET PO SCH (10:08)
[2019-01-23] MEDS: APIXABAN 5 MG TABLET PO SCH ×2 (10:08→17:36)
[2019-01-23] MEDS: METFORMIN HCL 500 MG TABLET PO SCH (10:10)
[2019-01-23 11:36] LABS: CREATINE KINASE MB 1.01 ng/mL (<4.55)
[2019-01-23 11:49] LABS: TROPONIN I < 0.012 ng/mL
[2019-01-23] MEDS: SOTALOL HCL 80 MG TABLET PO SCH ×2 (14:15→21:17)
[2019-01-23] MEDS: CEFTRIAXONE 1 GM/D5W RTU 1 GM/50 ML RTUPB IV SCH (15:42)
[2019-01-23] MEDS: ATORVASTATIN CALCIUM 10 MG TABLET PO SCH (21:18)
[2019-01-23] MEDS: ZOLPIDEM TARTRATE 5 MG TABLET PO PRN (21:18)
--- NOTE | 2019-01-23 22:31 | PDOC CONSULTATION ---
Consultation-Blank Consultation: CARDIOLOGY CONSULTATION BY Dr. Maggi Mireles on 01/23/2019. Patient seen at 8 AM. 60 minutes spent on this patient more than 50% time spent in direct patient care. REASON FOR CONSULTATION: New onset Atrial fibrillation, now in sinus rhythm. CONSULT REQUESTING PHYSICIAN: Dr. Danilo Riley, [facility] HISTORY PRESENT ILLNESS: Patient is a 43-year-old morbidly obese Afro-Ivorian female with a history of hypertension, history of asthma and history of sleep apnea and morbid obesity who states since about a week has been having shortness of breath. This is associated with generalized chest tightness with orthopnea. She also states that her chest tightness increased when she took a breath. She also had dyspnea on exertion. Which progressively increased to rest shortness of breath. She also had some palpitations and irregular beating of her heart but was not aware that it was very fast. She did have episodes of lightheadedness but no syncope. She thought it was her asthma and she had used multiple inhalers without any real effect. There is no PND or leg edema but t here is orthopnea present. 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 She went to urgent care and was told to go to the emergency room in the emergency room the patient was found to be in atrial fibrillation with rapid ventricular response, and subsequently patient was given Cardizem and is now in sinus rhythm. There is no prior episodes. Most likely the onset of this atrial fibrillation is about a week ago. Also this admission the patient has been found to have an elevated hemoglobin A1c and is diagnosed as having diabetes mellitus. She has no history of chronic kidney disease. There is no history of TIA CVA. There is no history of thyroid disease. Past Medical History Cardiac Medical History: Reports: Hypertension - medicated Denies: Atrial Fibrillation, Coronary Artery Disease, DVT, Myocardial Infarction, Pulmonary Embolism Pulmonary Medical History: Reports: Asthma - seasonal allergies can cause wheezing., Sleep Apnea Denies: Chronic Obstructive Pulmonary Disease (COPD) EENT Medical History: Reports: Nose - Allergic rhinitis Denies: Cataracts, Ears - Hearing aids Neurological Medical History: Denies: Hemorrhagic CVA, Ischemic CVA, Multiple Sclerosis, Seizures Endocrine Medical History: Reports: Obesity Denies: Diabetes Mellitus Type 1, Diabetes Mellitus Type 2, Hyperthyroidism, Hypothyroidism Renal/ Medical History: Denies: Chronic Kidney Disease, Nephrolithiasis Malignancy Medical History: Reports: None GI Medical History: Denies: Cirrhosis, Crohn's Disease, Gastroesophageal Reflux Disease, Hepatitis, Hiatal Hernia, Peptic Ulcer Disease, Ulcerative Colitis Musculoskeltal Medical History: Denies: Arthritis, Fibromyalgia Skin Medical History: Denies: Eczema, Psoriasis Psychiatric Medical History: Denies: Alcohol Dependency, Depression, Substance Abuse, Tobacco Dependency Traumatic Medical History: Reports: None Hematology: Denies: Anemia, Bleeding Tendencies Infectious Medical History: Reports: None Past Surgical History Past Surgical History: Reports: Section - x2, September 16, 2016, Cholecystectomy Social History Information Source: Patient Lives with: Family, Spouse/Significant other Smoking Status: Never Smoker Electronic Cigarette use?: No Frequency of Alcohol Use: None Hx Recreational Drug Use: No Drugs: None Hx Prescription Drug Abuse: No - Advance Directive Resuscitation Status: Full Code Surrogate healthcare decision maker:: Ezequiel Rivas, patient's . Family History Family History: CAD, DM, Hypertension, Malignancy, Other - Asthma Parental Family History Reviewed: Yes Children Family History Reviewed: No Sibling(s) Family History Reviewed.: Yes Medication/Allergy Home Medications: Cyclobenzaprine HCl [Flexeril 10 mg Tablet] 10 mg PO Q8HP PRN 01/22/19 Fluticasone Propionate [Flonase Nasal Redding 50 Mcg/Redding 16 gm] 1 spray NASL DAILYP PRN 01/22/19 Levocetirizine Dihydrochloride [Xyzal] 5 mg PO QPM 01/22/19 Losartan/Hydrochlorothiazide [Hyzaar 50-12.5 Tablet] 1 tab PO DAILY 01/22/19 Ondansetron [Ondansetron Odt] 8 mg PO Q8HP PRN 01/22/19 Oxycodone HCl 5 ml PO Q8HP PRN 01/22/19 Allergies/Adverse Reactions: No Known Allergies Allergy Review of Systems Constitutional: ABSENT: chills, fever(s) Eyes: ABSENT: visual disturbances, other - Eye pain Ears: ABSENT: hearing changes, other - Ear pain Nose, Mouth, and Throat: ABSENT: headache(s), mouth pain, sore throat Cardiovascular: PRESENT: as per HPI, chest pain - Tightness, dyspnea on exertion. ABSENT: edema, orthropnea, palpitations Respiratory: PRESENT: as per HPI, dyspnea. ABSENT: cough Gastrointestinal: ABSENT: abdominal pain, constipation, diarrhea, nausea, vomiting Genitourinary: ABSENT: dysuria, hematuria Musculoskeletal: ABSENT: back pain, joint swelling, muscle weakness Integumentary: ABSENT: pruritus, rash Neurological: ABSENT: confusion, convulsions, focal weakness, memory loss, syncope Psychiatric: ABSENT: anxiety, depression Endocrine: ABSENT: cold intolerance, heat intolerance Hematologic/Lymphatic: ABSENT: easy bleeding, easy bruising Allergic/Immunologic: PRESENT: seasonal rhinorrhea Current Medications Generic Name Dose Route Start Last Admin Trade Name Freq PRN Reason Stop Dose Admin Acetaminophen 650 mg 01/22/19 21:15 01/23/19 01:27 Tylenol 325 Mg Tablet PO 02/21/19 21:14 650 mg Q4HP PRN Administration For headache, pain or fever Al Hydrox/Mg Hydrox/Simethicone 30 ml 01/22/19 21:08 Maalox Plus Susp 30 Udcup PO 02/21/19 21:07 Q6HP PRN HEARTBURN Apixaban 5 mg 01/23/19 10:00 01/23/19 17:36 Eliquis 5 Mg Tablet PO 02/22/19 09:59 5 mg BID ADY Administration Atorvastatin Calcium 10 mg 01/23/19 22:00 01/23/19 21:18 Lipitor 10 Mg Tablet PO 02/22/19 21:59 10 mg QHS ADY Administration Budesonide 0.5 mg 01/23/19 08:00 01/23/19 20:31 Pulmicort Neb 0.5 Mg/2 Ml Ampul NEB 02/22/19 07:59 0.5 mg RTBID ADY Administration Docusate Sodium 100 mg 01/23/19 10:00 01/23/19 17:36 Colace 100 Mg Capsule PO 02/22/19 09:59 100 mg BID ADY Administration Famotidine 20 mg 01/22/19 22:00 01/23/19 21:17 Pepcid 20 Mg Tablet PO 02/21/19 21:59 20 mg Q12 ADY Administration Fluticasone Propionate 1 spray 01/22/19 22:12 Flonase Nasal Redding 50 Mcg/Redding 16 Gm NASL 02/21/19 22:11 DAILYP PRN FOR ALLERGIES Hydrochlorothiazide 12.5 mg 01/23/19 08:00 01/23/19 08:27 Hydrodiuril 12.5 Mg Tablet PO 02/22/19 07:59 12.5 mg QAM ADY Administration Ceftriaxone Sodium/Dextrose 1 gm in 50 mls @ 100 mls/hr 01/23/19 16:00 01/23/19 16:14 Rocephin Rtu 1 Gm/D5w 50 Ml Premix IV 01/30/19 15:59 Infused QPM ADY Infusion Influenza Virus Vaccine Quadrival 0.5 ml 01/24/19 08:00 Flulaval Quad 2019-20 Vac 0.5 Ml Syr IM 01/24/19 08:01 .ONCE ONE Levalbuterol HCl 0.63 mg 01/22/19 21:08 01/23/19 07:32 Xopenex Neb 0.63 Mg/3 Ml Ampul NEB 02/21/19 21:07 0.63 mg RTQ2HP PRN Administration SHORTNESS OF BREATH Losartan Potassium 50 mg 01/23/19 10:00 01/23/19 10:08 Cozaar 50 Mg Tablet PO 02/22/19 09:59 50 mg DAILY ADY Administration Magnesium Hydroxide 30 ml 01/22/19 21:08 Milk Of Magnesia 30 Ml Udcup PO 02/21/19 21:07 HSP PRN FOR CONSTIPATION Metformin HCl 500 mg 01/23/19 10:00 01/23/19 10:10 Glucophage 500 Mg Tablet PO 02/22/19 09:59 500 mg DAILY ADY Administration Nalbuphine HCl 5 mg 01/22/19 21:25 Nubain Inj 10 Mg/1 Ml Ampule IV 01/29/19 21:24 Q3HP PRN PAIN SCALE 1-3 Protocol Nalbuphine HCl 10 mg 01/22/19 21:25 Nubain Inj 10 Mg/1 Ml Ampule IV 01/29/19 21:24 Q3HP PRN PAIN SCALE 4-5 Protocol Sodium Chloride 2.5 ml 01/22/19 22:00 01/23/19 22:04 Saline Flush 2.5 Ml Monoject Prefil Syrin IV 02/21/19 21:59 2.5 ml Q8 ADY Administration Sotalol HCl 40 mg 01/23/19 11:30 01/23/19 21:17 Betapace 80 Mg Tablet PO 02/22/19 11:29 40 mg Q12 ADY Administration Zolpidem Tartrate 10 mg 01/22/19 21:08 01/23/19 21:18 Ambien 5 Mg Tablet PO 01/29/19 21:07 10 mg HSP PRN Administration SLEEP OR INSOMNIA Discontinued Medications Generic Name Dose Route Start Last Admin Trade Name Hebert PRN Reason Stop Dose Admin Apixaban 5 mg 01/22/19 22:14 01/22/19 23:07 Eliquis 5 Mg Tablet PO 01/22/19 22:15 5 mg NOW ONE Administration Diltiazem HCl 15 mg 01/22/19 18:00 01/22/19 18:15 Cardizem Inj 25 Mg/5 Ml Vial IV 01/22/19 18:01 15 mg NOW ONE Administration Diltiazem HCl 90 mg 01/23/19 00:00 01/23/19 05:21 Cardizem 90 Mg Tablet PO 02/22/19 00:00 90 mg Q6 ADY Administration Diltiazem HCl 30 mg 01/22/19 22:00 Cardizem 30 Mg Tablet PO 01/22/19 22:01 NOW ONE Diltiazem HCl 60 mg 01/22/19 22:00 01/22/19 22:11 Cardizem 30 Mg Tablet PO 01/22/19 22:01 60 mg NOW ONE Administration Diltiazem HCl Confirm 01/23/19 01:17 01/23/19 01:23 Cardizem 90 Mg Tablet Administered 01/23/19 01:18 Not Given Dose 90 mg .ROUTE .STK-MED ONE Diltiazem HCl Confirm 01/23/19 05:10 01/23/19 05:20 Cardizem 90 Mg Tablet Administered 01/23/19 05:11 Not Given Dose 90 mg .ROUTE .STK-MED ONE Diltiazem HCl 125 mg in 125 mls @ 0 mls/hr 01/22/19 18:00 01/23/19 04:58 Cardizem Rtu Inj 125 Mg-D5w 125 Ml Premix IV 02/21/19 17:59 Infused CONTINUOUS PRN Titration THIS MED IS NOT "PRN" Protocol Titrate Labetalol HCl 20 mg 01/22/19 21:15 01/23/19 04:15 Normodyne Inj 20 Mg/4 Ml Syringe IV 02/21/19 21:14 20 mg Q10MP PRN Administration KEEP SBP < 160 AND DBP < 100 Ondansetron HCl 4 mg 01/22/19 21:08 Zofran Inj/Pf 4 Mg/2 Ml Sdv IV 02/21/19 21:07 Q4HP PRN FOR NAUSEA/VOMITING Ondansetron HCl 4 mg 01/22/19 21:08 Zofran Odt 4 Mg Tablet PO 02/21/19 21:07 Q4HP PRN FOR NAUSEA/VOMITING Physical EXAMINATION: The patient is morbidly obese. At present in no acute distress. At present patient sinus rhythm. Selected Entries 01/23/19 08:00 Temperature 98.3 F Temperature Oral Source Pulse Rate 66 Respiratory 18 Rate Blood Pressure 133/51 H [Right Upper Arm] Blood Pressure 78 Mean [Right Upper Arm] Blood Pressure Sitting Position [Right Upper Arm] O2 Sat by Pulse 98 Oximetry Oxygen Delivery Room Air Method ( includes room air) HEAD: Is atraumatic. Normocephalic. EYES: Pupils are equal round regular reactive to light accommodation. Extraocular movements are normal there is no conjunctival pallor. There is no scleral icterus. EARS: Tympanic membranes are intact. External auditory canals are clear. NOSE: There is no deviated nasal septum. There is no inflammation of these mucous membrane MOUTH: Mucous membranes of mouth are moist. Tongue is moist. There is no ulcers in the mouth. THROAT: There is no redness of the oropharynx. There is no exudates. SKIN: There is no skin rashes. There is no skin lesions. There is no petechia or ecchymosis. NECK: Supple. There is no JVD. Carotids are equal there is no bruits. There is no lymphadenopathy. There is no goiter. There is no accessory muscle respiration use. Trachea central. LUNGS: Present is clear to auscultation percussion. There is no rhonchi rales or wheezing. HEART: S1-S2 is heard S1 is of normal intensity. There is no S3 gallop. There is no S4 gallop. There is systolic murmur left sternal border and the apex there is no rub. ABDOMEN: Is soft. Obese. There is no hepatospleno megaly. Bowel sounds are well heard. EXTREMITIES: Femorals are deep. Femorals are diminished. Leg pulses are well felt. There is no pedal edema. There is no DVT or cellulitis. There is no calf tenderness. 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 PSYCHIATRIC: Patient judgment insight are intact her affect is normal. Labs- All tests 24 hr 01/22/19 01/22/19 01/23/19 23:55 23:55 03:22 WBC RBC Hgb Hct MCV MCH MCHC RDW Plt Count Sodium Potassium Chloride Carbon Dioxide Anion Gap BUN Creatinine Est GFR ( Amer) Est GFR (MDRD) Non-Af Glucose Hemoglobin A1c % Calcium Magnesium Creatine Kinase 162 H 146 H CK-MB (CK-2) 1.07 Troponin I < 0.012 Triglycerides Cholesterol LDL Cholesterol Direct VLDL Cholesterol HDL Cholesterol 01/23/19 01/23/19 01/23/19 03:32 07:00 07:00 WBC 7.2 RBC 4.20 Hgb 12.2 Hct 36.7 MCV 87 MCH 29.1 MCHC 33.3 RDW 13.2 Plt Count 388 Sodium 136.0 L Potassium 4.0 Chloride 101 Carbon Dioxide 25 Anion Gap 10 BUN 11 Creatinine 0.78 Est GFR ( Amer) > 60 Est GFR (MDRD) Non-Af > 60 Glucose 106 Hemoglobin A1c % Calcium 9.4 Magnesium 1.9 Creatine Kinase CK-MB (CK-2) 1.03 Troponin I < 0.012 Triglycerides 113 Cholesterol 152.77 LDL Cholesterol Direct 110 H VLDL Cholesterol 23.0 HDL Cholesterol 31 L 01/23/19 01/23/19 01/23/19 07:00 09:52 09:52 WBC RBC Hgb Hct MCV MCH MCHC RDW Plt Count Sodium Potassium Chloride Carbon Dioxide Anion Gap BUN Creatinine Est GFR ( Amer) Est GFR (MDRD) Non-Af Glucose Hemoglobin A1c % 6.2 H Calcium Magnesium Creatine Kinase 143 H CK-MB (CK-2) 1.01 Troponin I < 0.012 Triglycerides Cholesterol LDL Cholesterol Direct VLDL Cholesterol HDL Cholesterol Chest X-Ray 01/22/19 17:49 IMPRESSION: NO ACUTE RADIOGRAPHIC FINDING IN THE CHEST. EKG: His atrial fibrillation with rapid ventricular response. Subsequent EKG shows sinus rhythm with first-degree AV block. QTC is 430. impression/RECOMMENDATION: 1. Paroxysmal atrial fibrillation. At present patient in sinus mechanism. In view of this would agree with continue the patient on Eliquis 5 mg p.o. twice daily. Would recommend discontinue the patient's Cardizem and start the patient on sotalol at 40 mg p.o. every 12 hours and watch the QTC and watch also for proarrhythmias. Note that the patient's corrected Des Vasc 2 score is 3. 2. Bronchial asthma: At present no acute exacerbation of asthma. Note that the patient has seasonal allergies. 3. Hypertension: Blood pressure well controlled 4. Diabetes mellitus. This is a new diagnosis adjustment made this admission. Continue Accu-Cheks and current antidiabetic regimen 5. Obstructive sleep apnea: Patient encouraged to wear CPAP. 6. Hyperlipidemia. Continue statin. 7. Morbid obesity. 8. Multiple CAD risk factors: Would strongly recommend IV Lexiscan Cardiolite stress test this can be done as an outpatient. Also will get an echo to assess the patient's systolic murmur which also can be done as an outpatient. 9. Systolic murmur: Most likely mitral regurgitation. I have discussed the benefits and risks of anticoagulation with the patient. The patient is at high risk for stroke and hence chronic anticoagulation therapy is definitely indicated. As mentioned earlier we will start the patient on sotalol and watch the patient for proarrhythmia or QTc intervals on the EKG. We will also continue the patient on Eliquis. Discussed management plan with the patient and also the medications have been reviewed. Medication regimen and management plan discussed with the attending provider on the case. Medical decision making is of high complexity. 60 minutes spent on this patient with more than 50% time spent in direct patient care
--- NOTE | 2019-01-23 23:02 | EKG REPORT ---
SEVERITY:- ABNORMAL ECG - SINUS RHYTHM FIRST DEGREE AV BLOCK : Confirmed by: Kimberley Lopez 23-Jan-2019 23:00:37
[2019-01-24 05:55] LABS: HEMATOCRIT 37.6 % (36.0-47.0); HEMOGLOBIN 12.2 g/dL (12.0-15.5); MEAN CORPUSCULAR HEMOGLOBIN 28.4 pg (27.0-33.4); MEAN CORPUSCULAR HGB CONC 32.5 g/dL (32.0-36.0); MEAN CORPUSCULAR VOLUME 88 fl (80-97); PLATELET COUNT 380 10^3/uL (150-450); RED BLOOD COUNT 4.29 10^6/uL (3.72-5.28); RED CELL DISTRIBUTION WIDTH 13.5 % (11.5-14.0); WHITE BLOOD COUNT 6.6 10^3/uL (4.0-10.5)
[2019-01-24] MEDS ORDERED: INFLUENZA QUAD (6MOS+) 2019-20 VAC 0.5 ML SYR IM ONE (08:00)
[2019-01-24] MEDS: BUDESONIDE NEB 0.5 MG/2 ML AMPUL NEB SCH ×2 (08:57→19:53)
--- NOTE | 2019-01-24 09:11 | EKG REPORT ---
SEVERITY:- OTHERWISE NORMAL ECG - SINUS RHYTHM ATRIAL PREMATURE COMPLEX : Confirmed by: Kimberley Lopez 24-Jan-2019 09:11:12
[2019-01-24] MEDS: SOTALOL HCL 80 MG TABLET PO SCH ×2 (09:51→22:05)
[2019-01-24] MEDS: DOCUSATE SODIUM 100 MG CAPSULE PO SCH ×2 (09:51→17:19)
[2019-01-24] MEDS: LOSARTAN POTASSIUM 50 MG TABLET PO SCH (09:52)
[2019-01-24] MEDS: FAMOTIDINE 20 MG TABLET PO SCH ×2 (09:52→22:05)
[2019-01-24] MEDS: METFORMIN HCL 500 MG TABLET PO SCH (09:52)
[2019-01-24] MEDS: APIXABAN 5 MG TABLET PO SCH ×2 (09:53→17:19)
[2019-01-24] MEDS: HYDROCHLOROTHIAZIDE 12.5 MG TABLET PO SCH (09:53)
--- NOTE | 2019-01-24 10:15 | PDOC PROGRESS REPORT ---
Subjective Progress Note for:: 01/24/19 Subjective:: 01/23/2019-swelling of bilateral lower extremities 01/24/2019-no complaints this a.m. Reason For Visit: NEW ONSET ATRIAL FIBRILLATION WITH RAPID Physical Exam Vital Signs: Temp Pulse Resp BP Pulse Ox 97 F L 92 18 119/80 97 01/24/19 04:00 01/24/19 09:00 01/24/19 09:00 01/24/19 09:49 01/24/19 09:00 Intake & Output 01/23/19 01/24/19 01/25/19 06:59 06:59 06:59 Intake Total 518 1040 Balance 518 1040 Weight 148.2 kg 151.5 kg General appearance: PRESENT: no acute distress, well-developed, well-nourished Head exam: PRESENT: atraumatic, normocephalic Eye exam: PRESENT: conjunctiva pink, EOMI, PERRLA. ABSENT: scleral icterus Ear exam: PRESENT: normal external ear exam Mouth exam: PRESENT: moist, tongue midline Neck exam: ABSENT: carotid bruit, JVD, lymphadenopathy, thyromegaly Respiratory exam: PRESENT: clear to auscultation dario. ABSENT: rales, rhonchi, wheezes Cardiovascular exam: PRESENT: irregular rhythm. ABSENT: diastolic murmur, rubs, systolic murmur Pulses: PRESENT: normal dorsalis pedis pul Vascular exam: PRESENT: normal capillary refill GI/Abdominal exam: PRESENT: normal bowel sounds, soft. ABSENT: distended, guarding, mass, organolmegaly, rebound, tenderness Rectal exam: PRESENT: deferred Extremities exam: PRESENT: full ROM. ABSENT: calf tenderness, clubbing, pedal edema Neurological exam: PRESENT: alert, awake, oriented to person, oriented to place, oriented to time, oriented to situation, CN II-XII grossly intact. ABSENT: motor sensory deficit Psychiatric exam: PRESENT: appropriate affect, normal mood. ABSENT: homicidal ideation, suicidal ideation Skin exam: PRESENT: dry, intact, warm. ABSENT: cyanosis, rash Results Laboratory Results: 01/24/19 05:07 01/23/19 07:00 01/24/19 01/24/19 05:07 05:07 WBC 6.6 RBC 4.29 Hgb 12.2 Hct 37.6 MCV 88 MCH 28.4 MCHC 32.5 RDW 13.5 Plt Count 380 Magnesium 1.8 01/22/19 01/22/19 01/22/19 18:03 18:03 23:55 Creatine Kinase 172 H 162 H CK-MB (CK-2) 1.28 Troponin I < 0.012 01/22/19 01/23/19 01/23/19 23:55 03:22 03:32 Creatine Kinase 146 H CK-MB (CK-2) 1.07 1.03 Troponin I < 0.012 < 0.012 01/23/19 01/23/19 09:52 09:52 Creatine Kinase 143 H CK-MB (CK-2) 1.01 Troponin I < 0.012 Impressions: Chest X-Ray 01/22/19 17:49 IMPRESSION: NO ACUTE RADIOGRAPHIC FINDING IN THE CHEST. Assessment and Plan - Plan Summary Summary: 01/23/2019- Atrial fibrillation with RVR-patient is sinus rhythm at this time. We will continue p.o. Cardizem. Eliquis. Continue to monitor Essential hypertension-continue home medication continue Cardizem Obstructive sleep apnea-patient is on CPAP. Last evaluation was probably 5 years ago. Will have patient follow-up with Dr. Lopez on discharge for possible follow-up sleep study Morbid obesity continue to educate about the importance of dietary restriction Type 2 diabetes mellitus-metformin 500 mg p.o. daily Dyslipidemia-atorvastatin 10 mg p.o. daily 01/24/2019- Atrial fibrillation RVR. Controlled at this time. Patient has been converted to sotalol. Continue Eliquis. Essential hypertension-stable continue to follow Instructed sleep apnea-see above Morbid obesity-continue dietary restriction and modification education Type 2 diabetes mellitus Metformin Dyslipidemia-continue atorvastatin - Inpatient Certification Based on my medical assessment, after consideration of the patient's comorbidities, presenting symptoms, or acuity I expect that the services needed warrant INPATIENT care.: Yes I certify that my determination is in accordance with my understanding of Medicare's requirements for reasonable and necessary INPATIENT services [42 CFR 412.3e].: Yes Medical Necessity: Other - Monitor rate control with sotalol
[2019-01-24] MEDS: CEFTRIAXONE 1 GM/D5W RTU 1 GM/50 ML RTUPB IV SCH (17:20)
[2019-01-24] MEDS: LEVALBUTEROL HCL NEB 0.63 MG/3 ML AMPUL NEB PRN (19:53)
[2019-01-24] MEDS: ATORVASTATIN CALCIUM 10 MG TABLET PO SCH (22:05)
[2019-01-24] MEDS: ZOLPIDEM TARTRATE 5 MG TABLET PO PRN (22:05)
--- NOTE | 2019-01-24 22:47 | Progress Note ---
Provider Note Provider Note: CARDIOLOGY PROGRESS NOTE by Dr. Maggi Mireles on 01/24/2019. SUBJECTIVE: The patient remains in sinus rhythm. She denies any chest pain or discomfort there is no PND orthopnea. She complains of left leg swelling more than right leg swelling. She also complains of pain in the left leg. The patient denies any shortness of breath PND orthopnea. There is no ventricular arrhythmia seen on sotalol. The QTC is within acceptable limits. There is no bleeding on Eliquis. There is no TIA CVA symptoms. PHYSICAL EXAMINATION: The patient is morbidly obese. In no acute distress. Selected Entries 01/24/19 11:56 Temperature 98.7 F Temperature Oral Source Pulse Rate 89 Respiratory 18 Rate Blood Pressure 117/77 Blood Pressure 90 Mean BP Location Right Arm BP Position Supine O2 Sat by Pulse 99 Oximetry Oxygen Delivery Room Air Method HEAD: Is atraumatic. Normocephalic. EYES: Pupils are equal round regular reactive to light accommodation. Extraocular movements are normal there is no conjunctival pallor. There is no scleral icterus. EARS: Tympanic membranes are intact. External auditory canals are clear. NOSE: There is no deviated nasal septum. There is no inflammation of these mucous membrane MOUTH: Mucous membranes of mouth are moist. Tongue is moist. There is no ulcers in the mouth. THROAT: There is no redness of the oropharynx. There is no exudates. SKIN: There is no skin rashes. There is no skin lesions. There is no petechia or ecchymosis. NECK: Supple. There is no JVD. Carotids are equal there is no bruits. There is no lymphadenopathy. There is no goiter. There is no accessory muscle respiration use. Trachea central. LUNGS: Present is clear to auscultation percussion. There is no rhonchi rales or wheezing. HEART: S1-S2 is heard S1 is of normal intensity. There is no S3 gallop. There is no S4 gallop. There is systolic murmur left sternal border and the apex there is no rub. ABDOMEN: Is soft. Obese. There is no hepatospleno megaly. Bowel sounds are well heard. EXTREMITIES: Femorals are deep. Femorals are diminished. Leg pulses are well felt. There is trace pedal edema in the right lower extremity and mild pedal edema in the left lower extremity with some discomfort on palpation. No definite signs of DVT.. There is no DVT or cellulitis. There is no calf tenderness. 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 PSYCHIATRIC: Patient judgment insight are intact her affect is normal. EKG: Sinus rhythm. Within normal limits. QTC is 442. Review of the monitor shows no atrial or ventricular arrhythmias. Labs- All tests 24 hr 01/24/19 01/24/19 05:07 05:07 WBC 6.6 RBC 4.29 Hgb 12.2 Hct 37.6 MCV 88 MCH 28.4 MCHC 32.5 RDW 13.5 Plt Count 380 Magnesium 1.8 Chest X-Ray 01/22/19 17:49 IMPRESSION: NO ACUTE RADIOGRAPHIC FINDING IN THE CHEST. IMPRESSION/RECOMMENDATION: 1. Paroxysmal atrial fibrillation. At present patient in sinus mechanism. In view of this would agree with continue the patient on Eliquis 5 mg p.o. twice daily. Would recommend discontinue the patient's Cardizem and start the patient on sotalol at 40 mg p.o. every 12 hours and watch the QTC and watch also for proarrhythmias. Note that the patient's corrected Des Vasc 2 score is 3. 2. Bronchial asthma: At present no acute exacerbation of asthma. Note that the patient has seasonal allergies. 3. Hypertension: Blood pressure well controlled 4. Diabetes mellitus. This is a new diagnosis adjustment made this admission. Continue Accu-Cheks and current antidiabetic regimen 5. Obstructive sleep apnea: Patient encouraged to wear CPAP. 6. Hyperlipidemia. Continue statin. 7. Morbid obesity. 8. Multiple CAD risk factors: Would strongly recommend IV Lexiscan Cardiolite stress test this can be done as an outpatient. Also will get an echo to assess the patient's systolic murmur which also can be done as an outpatient. 9. Systolic murmur: Most likely mitral regurgitation. 10. Edema left lower extremity greater than right. With some pain in the left lower extremity. Will get venous Dopplers. Medications reviewed. Medication regimen and management plan discussed with attending patient. Venous Dopplers of lower extremities ordered. Medical decision making is of moderate complexity. Will follow.
[2019-01-25 05:48] LABS: HEMATOCRIT 37.4 % (36.0-47.0); HEMOGLOBIN 12.2 g/dL (12.0-15.5); MEAN CORPUSCULAR HEMOGLOBIN 28.6 pg (27.0-33.4); MEAN CORPUSCULAR HGB CONC 32.6 g/dL (32.0-36.0); MEAN CORPUSCULAR VOLUME 88 fl (80-97); PLATELET COUNT 348 10^3/uL (150-450); RED BLOOD COUNT 4.26 10^6/uL (3.72-5.28); RED CELL DISTRIBUTION WIDTH 13.4 % (11.5-14.0); WHITE BLOOD COUNT 6.3 10^3/uL (4.0-10.5)
[2019-01-25 06:02] LABS: ANION GAP 7 (5-19); BLOOD UREA NITROGEN 11 mg/dL (7-20); CALCIUM 9.1 mg/dL (8.4-10.2); CARBON DIOXIDE 28 mmol/L (22-30); CHLORIDE 102 mmol/L (98-107); GLUCOSE 105 mg/dL (75-110); POTASSIUM 4.1 mmol/L (3.6-5.0)
--- NOTE | 2019-01-25 07:20 | EKG REPORT ---
SEVERITY:- NORMAL ECG - SINUS RHYTHM : Confirmed by: Kimberley Lopez 25-Jan-2019 07:19:19
[2019-01-25] MEDS: BUDESONIDE NEB 0.5 MG/2 ML AMPUL NEB SCH ×2 (08:29→20:20)
[2019-01-25] MEDS: HYDROCHLOROTHIAZIDE 12.5 MG TABLET PO SCH (08:59)
[2019-01-25] MEDS: LOSARTAN POTASSIUM 50 MG TABLET PO SCH (10:02)
[2019-01-25] MEDS: METFORMIN HCL 500 MG TABLET PO SCH (10:02)
[2019-01-25] MEDS: APIXABAN 5 MG TABLET PO SCH ×2 (10:02→17:52)
[2019-01-25] MEDS: DOCUSATE SODIUM 100 MG CAPSULE PO SCH ×2 (10:02→17:52)
[2019-01-25] MEDS: FAMOTIDINE 20 MG TABLET PO SCH ×2 (10:02→22:19)
[2019-01-25] MEDS: SOTALOL HCL 80 MG TABLET PO SCH ×2 (10:02→22:19)
--- NOTE | 2019-01-25 10:13 | PDOC PROGRESS REPORT ---
Subjective Progress Note for:: 01/25/19 Subjective:: 01/23/2019-swelling of bilateral lower extremities 01/24/2019-no complaints this a.m. 01/25/2019-no complaints Reason For Visit: NEW ONSET ATRIAL FIBRILLATION WITH RAPID Physical Exam Vital Signs: Temp Pulse Resp BP Pulse Ox 98.1 F 91 18 144/88 H 94 01/25/19 07:39 01/25/19 08:40 01/25/19 08:40 01/25/19 07:39 01/25/19 08:40 Intake & Output 01/24/19 01/25/19 01/26/19 06:59 06:59 06:59 Intake Total 1040 1310 Balance 1040 1310 Weight 151.5 kg 151 kg General appearance: PRESENT: no acute distress, well-developed, well-nourished Neck exam: ABSENT: carotid bruit, JVD, lymphadenopathy, thyromegaly Respiratory exam: PRESENT: clear to auscultation dario. ABSENT: rales, rhonchi, wheezes Cardiovascular exam: PRESENT: RRR. ABSENT: diastolic murmur, rubs, systolic murmur Pulses: PRESENT: normal dorsalis pedis pul Vascular exam: PRESENT: normal capillary refill GI/Abdominal exam: PRESENT: normal bowel sounds, soft. ABSENT: distended, guarding, mass, organolmegaly, rebound, tenderness Extremities exam: PRESENT: full ROM. ABSENT: calf tenderness, clubbing, pedal edema Neurological exam: PRESENT: alert, awake, oriented to person, oriented to place, oriented to time, oriented to situation, CN II-XII grossly intact. ABSENT: motor sensory deficit Psychiatric exam: PRESENT: appropriate affect, normal mood. ABSENT: homicidal ideation, suicidal ideation Skin exam: PRESENT: dry, intact, warm. ABSENT: cyanosis, rash Results Laboratory Results: 01/25/19 04:58 01/25/19 04:58 01/25/19 01/25/19 04:58 04:58 WBC 6.3 RBC 4.26 Hgb 12.2 Hct 37.4 MCV 88 MCH 28.6 MCHC 32.6 RDW 13.4 Plt Count 348 Sodium 137.2 Potassium 4.1 Chloride 102 Carbon Dioxide 28 Anion Gap 7 BUN 11 Creatinine 0.72 Est GFR ( Amer) > 60 Glucose 105 Calcium 9.1 Magnesium 1.8 01/22/19 01/22/19 01/22/19 18:03 18:03 23:55 Creatine Kinase 172 H 162 H CK-MB (CK-2) 1.28 Troponin I < 0.012 01/22/19 01/23/19 01/23/19 23:55 03:22 03:32 Creatine Kinase 146 H CK-MB (CK-2) 1.07 1.03 Troponin I < 0.012 < 0.012 01/23/19 01/23/19 09:52 09:52 Creatine Kinase 143 H CK-MB (CK-2) 1.01 Troponin I < 0.012 Impressions: Chest X-Ray 01/22/19 17:49 IMPRESSION: NO ACUTE RADIOGRAPHIC FINDING IN THE CHEST. Assessment and Plan - Plan Summary Summary: 01/23/2019- Atrial fibrillation with RVR-patient is sinus rhythm at this time. We will continue p.o. Cardizem. Eliquis. Continue to monitor Essential hypertension-continue home medication continue Cardizem Obstructive sleep apnea-patient is on CPAP. Last evaluation was probably 5 years ago. Will have patient follow-up with Dr. Lopez on discharge for possible follow-up sleep study Morbid obesity continue to educate about the importance of dietary restriction Type 2 diabetes mellitus-metformin 500 mg p.o. daily Dyslipidemia-atorvastatin 10 mg p.o. daily 01/24/2019- Atrial fibrillation RVR. Controlled at this time. Patient has been converted to sotalol. Continue Eliquis. Essential hypertension-stable continue to follow Instructed sleep apnea-see above Morbid obesity-continue dietary restriction and modification education Type 2 diabetes mellitus Metformin Dyslipidemia-continue atorvastatin 01/25/2019- A. fib with RVR-converted to sinus rhythm rate in 90s. Continue sotalol continue Eliquis Essential hypertension-stable Obstructive sleep apnea repeat sleep study on outpatient basis Morbid obesity continue dietary restriction modification Type 2 diabetes mellitus continue metformin Dyslipidemia continue atorvastatin - Time Time Spent with patient: 15-24 minutes - Inpatient Certification Based on my medical assessment, after consideration of the patient's comorbidities, presenting symptoms, or acuity I expect that the services needed warrant INPATIENT care.: Yes I certify that my determination is in accordance with my understanding of Medicare's requirements for reasonable and necessary INPATIENT services [42 CFR 412.3e].: Yes Medical Necessity: Other - Rate control, further diagnostics
--- NOTE | 2019-01-25 11:24 | RADIOLOGY REPORT (SQ) ---
EXAM DESCRIPTION: VENOUS BILATERAL LOWER COMPLETED DATE/TIME: 01/25/2019 11:08 am REASON FOR STUDY: Bilateral leg edema and pain COMPARISON: None. TECHNIQUE: Dynamic and static felipe scale and color images acquired of both lower extremity venous sy stems. Selected spectral images acquired with additional compression and augmentation maneuvers. Imag es stored on PACS. LIMITATIONS: None. FINDINGS: RIGHT LEG COMMON FEMORAL AND FEMORAL: Normal phasicity, compression and augmentation. No visualized echogenic m aterial on felipe scale. No defects on color images. POPLITEAL: Normal compression and augmentation. No visualized echogenic material on felipe scale. No de fects on color images. CALF VESSELS: Normal compression and augmentation. No visualized echogenic material on felipe scale. No defects on color image. GSV AND SSV: Normal compression. No visualized echogenic material on felipe scale. No defects on color images. ANY DEEP VENOUS INSUFFICIENCY: Not evaluated. ANY EVIDENCE OF POPLITEAL CYST: No. OTHER: No other significant finding. LEFT LEG COMMON FEMORAL AND FEMORAL: Normal phasicity, compression and augmentation. No visualized echogenic m aterial on felipe scale. No defects on color images. The distal left superficial femoral vein is poorl y visualized. POPLITEAL: Normal compression and augmentation. No visualized echogenic material on felipe scale. No de fects on color images. CALF VESSELS: Normal compression and augmentation. No visualized echogenic material on felipe scale. No defects on color images. GSV AND SSV: Normal compression. No visualized echogenic material on felipe scale. No defects on color images. ANY DEEP VENOUS INSUFFICIENCY: Not evaluated. ANY EVIDENCE POPLITEAL CYST: No. OTHER: No other significant finding. IMPRESSION: Negative examination for deep venous thrombosis in the bilateral lower extremities. The distal left superficial femoral vein is poorly visualized. TECHNICAL DOCUMENTATION: JOB ID: [id number] [employer]- All Rights Reserved Reading location - IP/workstation name: [email or web address]
[2019-01-25] MEDS: CEFTRIAXONE 1 GM/D5W RTU 1 GM/50 ML RTUPB IV SCH (18:17)
--- NOTE | 2019-01-25 22:08 | Progress Note ---
Provider Note Provider Note: CARDIOLOGY PROGRESS NOTE by Dr. Maggi Mireles on 01/25/2019. SUBJECTIVE: The patient remains in sinus rhythm. There is no proarrhythmias. Her leg edema is much improved she still has a little pain in the left lower leg. Bilateral venous Dopplers were negative for any DVT. The patient has no chest pain or discomfort. There is no PND orthopnea. There is no bleeding on Eliquis. There is no TIA CVA symptoms. PHYSICAL EXAMINATION: Patient is morbidly obese. In no acute distress. Selected Entries 01/25/19 07:39 Temperature 98.1 F Temperature Oral Source Pulse Rate 83 Respiratory 18 Rate Blood Pressure 144/88 H Blood Pressure 106 Mean BP Location Right Arm BP Position Supine O2 Sat by Pulse 100 Oximetry Oxygen Delivery Room Air Method HEAD: Is atraumatic. Normocephalic. EYES: Pupils are equal round regular reactive to light accommodation. Extraocular movements are normal there is no conjunctival pallor. There is no scleral icterus. EARS: Tympanic membranes are intact. External auditory canals are clear. NOSE: There is no deviated nasal septum. There is no inflammation of these mucous membrane MOUTH: Mucous membranes of mouth are moist. Tongue is moist. There is no ulcers in the mouth. THROAT: There is no redness of the oropharynx. There is no exudates. SKIN: There is no skin rashes. There is no skin lesions. There is no petechia or ecchymosis. NECK: Supple. There is no JVD. Carotids are equal there is no bruits. There is no lymphadenopathy. There is no goiter. There is no accessory muscle respiration use. Trachea central. LUNGS: Present is clear to auscultation percussion. There is no rhonchi rales or wheezing. HEART: S1-S2 is heard S1 is of normal intensity. There is no S3 gallop. There is no S4 gallop. There is systolic murmur left sternal border and the apex there is no rub. ABDOMEN: Is soft. Obese. There is no hepatospleno megaly. Bowel sounds are well heard. EXTREMITIES: Femorals are deep. Femorals are diminished. Leg pulses are well felt. There is trace pedal edema in the right lower extremity and left lower extremity with some discomfort on palpation of the left lower leg. There is no redness or evidence of inflammation.. No definite signs of DVT.. There is no DVT or cellulitis. There is no calf tenderness. 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 PSYCHIATRIC: Patient judgment insight are intact her affect is normal. Labs- All tests 24 hr 01/25/19 01/25/19 04:58 04:58 WBC 6.3 RBC 4.26 Hgb 12.2 Hct 37.4 MCV 88 MCH 28.6 MCHC 32.6 RDW 13.4 Plt Count 348 Sodium 137.2 Potassium 4.1 Chloride 102 Carbon Dioxide 28 Anion Gap 7 BUN 11 Creatinine 0.72 Est GFR ( Amer) > 60 Est GFR (MDRD) Non-Af > 60 Glucose 105 Calcium 9.1 Magnesium 1.8 Chest X-Ray 01/22/19 17:49 IMPRESSION: NO ACUTE RADIOGRAPHIC FINDING IN THE CHEST. Venous Doppler Study 01/25/19 00:00 IMPRESSION: Negative examination for deep venous thrombosis in the bilateral lower extremities. The distal left superficial femoral vein is poorly visualized. EKG shows sinus rhythm. QTc is acceptable at 455. IMPRESSION/RECOMMENDATION: 1. Paroxysmal atrial fibrillation. At present patient in sinus mechanism. In view of this would agree with continue the patient on Eliquis 5 mg p.o. twice daily. Would recommend discontinue the patient's Cardizem and start the patient on sotalol at 40 mg p.o. every 12 hours and watch the QTC and watch also for proarrhythmias. Note that the patient's corrected Des Vasc 2 score is 3. 2. Bronchial asthma: At present no acute exacerbation of asthma. Note that the patient has seasonal allergies. 3. Hypertension: Blood pressure well controlled 4. Diabetes mellitus. This is a new diagnosis adjustment made this admission. Continue Accu-Cheks and current antidiabetic regimen 5. Obstructive sleep apnea: Patient encouraged to wear CPAP. 6. Hyperlipidemia. Continue statin. 7. Morbid obesity. 8. Multiple CAD risk factors: Would strongly recommend IV Lexiscan Cardiolite stress test this can be done as an outpatient. Also will get an echo to assess the patient's systolic murmur which also can be done as an outpatient. 9. Systolic murmur: Most likely mitral regurgitation. 10. Edema left lower extremity greater than right. With some pain in the left lower extremity. Much improved. Will recheck the patient's EKG in the morning if this is stable with acceptable QTC will discharge the patient home on sotalol and Eliquis. Also in view of the left leg pain although very unlikely will get a serum uric acid. Medications reviewed. Management plan discussed with attending physician on the case. Medical decision making is of moderate complexity. 40 minutes spent on this patient more than 50% time spent in direct patient care.
[2019-01-25] MEDS: ATORVASTATIN CALCIUM 10 MG TABLET PO SCH (22:19)
[2019-01-25] MEDS: ZOLPIDEM TARTRATE 5 MG TABLET PO PRN (22:19)
[2019-01-26] MEDS: ACETAMINOPHEN 325 MG TABLET PO PRN ×2 (06:11→21:38)
[2019-01-26] MEDS: BUDESONIDE NEB 0.5 MG/2 ML AMPUL NEB SCH ×2 (08:09→20:33)
[2019-01-26] MEDS: LOSARTAN POTASSIUM 50 MG TABLET PO SCH (09:44)
[2019-01-26] MEDS: APIXABAN 5 MG TABLET PO SCH ×2 (09:44→17:19)
[2019-01-26] MEDS: HYDROCHLOROTHIAZIDE 12.5 MG TABLET PO SCH (09:44)
[2019-01-26] MEDS: METFORMIN HCL 500 MG TABLET PO SCH (09:44)
[2019-01-26] MEDS: DOCUSATE SODIUM 100 MG CAPSULE PO SCH ×2 (09:44→17:19)
[2019-01-26] MEDS: FAMOTIDINE 20 MG TABLET PO SCH ×2 (09:44→21:39)
[2019-01-26] MEDS: SOTALOL HCL 80 MG TABLET PO SCH ×2 (09:44→21:39)
[2019-01-26] MEDS ORDERED: ONDANSETRON HCL INJ/PF 4 MG/2 ML SDV IV PRN (09:56)
[2019-01-26] MEDS ORDERED: ONDANSETRON HCL INJ/PF 4 MG/2 ML SDV ONE (10:05)
[2019-01-26] MEDS ORDERED: EPINEPHRINE INJ/PF 1 MG/1 ML AMPULE SUBCUT STA (10:16)
[2019-01-26 10:23] LABS: HEMATOCRIT 37.3 % (36.0-47.0); HEMOGLOBIN 12.1 g/dL (12.0-15.5); MEAN CORPUSCULAR HEMOGLOBIN 28.7 pg (27.0-33.4); MEAN CORPUSCULAR HGB CONC 32.5 g/dL (32.0-36.0); MEAN CORPUSCULAR VOLUME 88 fl (80-97); PLATELET COUNT 377 10^3/uL (150-450); RED BLOOD COUNT 4.23 10^6/uL (3.72-5.28); RED CELL DISTRIBUTION WIDTH 13.4 % (11.5-14.0); WHITE BLOOD COUNT 7.2 10^3/uL (4.0-10.5)
[2019-01-26] MEDS ORDERED: METHYLPREDNISOLONE INJ 125 MG/2 ML SDV IV ONE (10:30)
[2019-01-26 10:42] LABS: ANION GAP 12 (5-19); BLOOD UREA NITROGEN 11 mg/dL (7-20); CALCIUM 9.1 mg/dL (8.4-10.2); CARBON DIOXIDE 25 mmol/L (22-30); CHLORIDE 104 mmol/L (98-107); GLUCOSE 104 mg/dL (75-110); POTASSIUM 4.3 mmol/L (3.6-5.0)
--- NOTE | 2019-01-26 10:57 | PDOC PROGRESS REPORT ---
Subjective Progress Note for:: 01/26/19 Subjective:: 01/23/2019-swelling of bilateral lower extremities 01/24/2019-no complaints this a.m. 01/25/2019-no complaints 01/26/2019-patient complains of vague feeling after getting a dose of Nubain. Diaphoresis slight altered mental status Reason For Visit: NEW ONSET ATRIAL FIBRILLATION WITH RAPID Physical Exam Vital Signs: Temp Pulse Resp BP Pulse Ox 98.4 F 72 17 127/54 H 96 01/26/19 03:22 01/26/19 08:09 01/26/19 08:09 01/26/19 03:22 01/26/19 08:09 Intake & Output 01/25/19 01/26/19 01/27/19 06:59 06:59 06:59 Intake Total 1310 1630 Balance 1310 1630 Weight 151 kg 150.9 kg General appearance: PRESENT: no acute distress, well-developed, well-nourished Eye exam: PRESENT: conjunctiva pink, EOMI, PERRLA. ABSENT: scleral icterus Neck exam: ABSENT: carotid bruit, JVD, lymphadenopathy, thyromegaly Respiratory exam: PRESENT: clear to auscultation dario. ABSENT: rales, rhonchi, wheezes Cardiovascular exam: PRESENT: RRR. ABSENT: diastolic murmur, rubs, systolic murmur Pulses: PRESENT: normal dorsalis pedis pul Vascular exam: PRESENT: normal capillary refill GI/Abdominal exam: PRESENT: normal bowel sounds, soft. ABSENT: distended, guarding, mass, organolmegaly, rebound, tenderness Extremities exam: PRESENT: full ROM. ABSENT: calf tenderness, clubbing, pedal edema Neurological exam: PRESENT: other - Patient listless diaphoretic. Psychiatric exam: PRESENT: appropriate affect, normal mood. ABSENT: homicidal ideation, suicidal ideation Skin exam: PRESENT: dry, intact, warm. ABSENT: cyanosis, rash Results Laboratory Results: 01/26/19 05:15 01/26/19 05:15 01/26/19 01/26/19 01/26/19 05:15 05:15 05:15 WBC 7.2 RBC 4.23 Hgb 12.1 Hct 37.3 MCV 88 MCH 28.7 MCHC 32.5 RDW 13.4 Plt Count 377 Sodium 140.7 Potassium 4.3 Chloride 104 Carbon Dioxide 25 Anion Gap 12 BUN 11 Creatinine 0.76 Est GFR ( Amer) > 60 Glucose 104 Uric Acid 5.0 Calcium 9.1 01/22/19 01/22/19 01/22/19 18:03 18:03 23:55 Creatine Kinase 172 H 162 H CK-MB (CK-2) 1.28 Troponin I < 0.012 01/22/19 01/23/19 01/23/19 23:55 03:22 03:32 Creatine Kinase 146 H CK-MB (CK-2) 1.07 1.03 Troponin I < 0.012 < 0.012 01/23/19 01/23/19 09:52 09:52 Creatine Kinase 143 H CK-MB (CK-2) 1.01 Troponin I < 0.012 Impressions: Chest X-Ray 01/22/19 17:49 IMPRESSION: NO ACUTE RADIOGRAPHIC FINDING IN THE CHEST. Venous Doppler Study 01/25/19 00:00 IMPRESSION: Negative examination for deep venous thrombosis in the bilateral lower extremities. The distal left superficial femoral vein is poorly visualized. Assessment and Plan - Plan Summary Summary: 01/23/2019- Atrial fibrillation with RVR-patient is sinus rhythm at this time. We will continue p.o. Cardizem. Eliquis. Continue to monitor Essential hypertension-continue home medication continue Cardizem Obstructive sleep apnea-patient is on CPAP. Last evaluation was probably 5 years ago. Will have patient follow-up with Dr. Lopez on discharge for possible follow-up sleep study Morbid obesity continue to educate about the importance of dietary restriction Type 2 diabetes mellitus-metformin 500 mg p.o. daily Dyslipidemia-atorvastatin 10 mg p.o. daily 01/24/2019- Atrial fibrillation RVR. Controlled at this time. Patient has been converted to sotalol. Continue Eliquis. Essential hypertension-stable continue to follow Instructed sleep apnea-see above Morbid obesity-continue dietary restriction and modification education Type 2 diabetes mellitus Metformin Dyslipidemia-continue atorvastatin 01/25/2019- A. fib with RVR-converted to sinus rhythm rate in 90s. Continue sotalol continue Eliquis Essential hypertension-stable Obstructive sleep apnea repeat sleep study on outpatient basis Morbid obesity continue dietary restriction modification Type 2 diabetes mellitus continue metformin Dyslipidemia continue atorvastatin 01/26/2019- A. fib with RVR- Rate controlled sinus rhythm. Continue sotalol and Eliquis Essential hypertension-stable Obstructive sleep apnea-outpatient sleep study Morbid obesity-modification of dietary intake education. Type 2 diabetes mellitus-continue metformin Dyslipidemia-continue atorvastatin Altered mental status-patient received Nubain this a.m. for headache. Patient most likely having slight reaction to this Nubain as she was listless and had altered mental status with weakness. CT of the brain was negative for any acute findings per my reading. I will await readings from radiology. Patient's vital signs at this episode were all within normal limits. Obtain a CBC and a BMP which were all negative. After patient returned from radiology she seemed more spry and able to converse. I did give her 0.3 mg subcu of epinephrine and 125 mg of IV Solu-Medrol and 4 mg of IV Zofran as patient stated she was nauseous to this episode. She is much improved at this time I will continue to follow - Time Time Spent with patient: 25-34 minutes - Inpatient Certification Based on my medical assessment, after consideration of the patient's comorbidities, presenting symptoms, or acuity I expect that the services needed warrant INPATIENT care.: Yes I certify that my determination is in accordance with my understanding of Medicare's requirements for reasonable and necessary INPATIENT services [42 CFR 412.3e].: Yes Medical Necessity: Significant Comorbidiites Make Outpatient Treatment Too Risky, Need Close Monitoring Due to Risk of Patient Decompensation
[2019-01-26] MEDS ORDERED: PROMETHAZINE HCL INJ 25 MG/1 ML VIAL IV ONE (12:00)
--- NOTE | 2019-01-26 12:23 | RADIOLOGY REPORT (SQ) ---
EXAM DESCRIPTION: CT HEAD WITHOUT COMPLETED DATE/TIME: 01/26/2019 10:29 am REASON FOR STUDY: altered mental status COMPARISON: None. TECHNIQUE: Axial images acquired through the brain without intravenous contrast. Images reviewed wi th bone, brain and subdural windows. Additional sagittal and coronal reconstructions were generated. Images stored on PACS. All CT scanners at this facility use dose modulation, iterative reconstruction, and/or weight based d osing when appropriate to reduce radiation dose to as low as reasonably achievable (ALARA). [facility]: Dose Right [facility]: CareDose [facility]: Dose Right [facility]: Teradose 4D [facility]: Smart Entigo RADIATION DOSE: CT Rad equipment meets quality standard of care and radiation dose reduction techniq ues were employed. CTDIvol: 53.2 mGy. DLP: 964 mGy-cm. mGy. LIMITATIONS: None. FINDINGS: VENTRICLES: Normal size and contour. CEREBRUM: No masses. No hemorrhage. No midline shift. No evidence for acute infarction. Normal gra y/white matter differentiation. No areas of low density in the white matter. CEREBELLUM: No masses. No hemorrhage. No alteration of density. No evidence for acute infarction. EXTRAAXIAL SPACES: No fluid collections. No masses. ORBITS AND GLOBE: No intra- or extraconal masses. Normal contour of globe without masses. CALVARIUM: No fracture. PARANASAL SINUSES: No fluid or mucosal thickening. SOFT TISSUES: No mass or hematoma. OTHER: No other significant finding. IMPRESSION: NORMAL BRAIN CT WITHOUT CONTRAST. EVIDENCE OF ACUTE STROKE: NO. COMMENT: Quality ID # [id number]: Final reports with documentation of one or more dose reduction techniques (e.g., Automated exposure control, adjustment of the mA and/or kV according to patient size, use of iterative reconstruction technique) TECHNICAL DOCUMENTATION: JOB ID: [id number] [employer]- All Rights Reserved Reading location - IP/workstation name: [email or web address]
[2019-01-26] MEDS: CEFTRIAXONE 1 GM/D5W RTU 1 GM/50 ML RTUPB IV SCH (17:19)
--- NOTE | 2019-01-26 21:09 | Progress Note ---
Provider Note Provider Note: CARDIOLOGY provider note by Dr. Maggi Mireles on 01/26/2019. SUBJECTIVE the patient this morning complained of headache and was given Nubain. Subsequently she had somnolescent's and also visual hallucinations. She had no angioedema or symptoms or signs of anaphylaxis. But in spite of this patient did receive epinephrine steroids and Benadryl. The patient subsequently is now back to normal. CT of the head was unremarkable. In spite of the patient receiving epinephrine she is remains in sinus rhythm. The QTC is acceptable. The patient's leg edema is resolved. The patient had no chest pain or discomfort. There is no bleeding on Eliquis. There is no TIA CVA symptoms. PHYSICAL EXAMINATION: Patient is morbidly obese. In no acute distress at present. Selected Entries 01/26/19 15:30 Temperature 98.6 F Temperature Oral Source Pulse Rate 79 Respiratory 18 Rate Blood Pressure 104/66 Blood Pressure 78 Mean BP Location Right Arm BP Position Supine O2 Sat by Pulse 98 Oximetry Oxygen Delivery Room Air Method HEAD: Is atraumatic. Normocephalic. EYES: Pupils are equal round regular reactive to light accommodation. Extraocular movements are normal there is no conjunctival pallor. There is no scleral icterus. EARS: Tympanic membranes are intact. External auditory canals are clear. NOSE: There is no deviated nasal septum. There is no inflammation of these mucous membrane MOUTH: Mucous membranes of mouth are moist. Tongue is moist. There is no ulcers in the mouth. THROAT: There is no redness of the oropharynx. There is no exudates. SKIN: There is no skin rashes. There is no skin lesions. There is no petechia or ecchymosis. NECK: Supple. There is no JVD. Carotids are equal there is no bruits. There is no lymphadenopathy. There is no goiter. There is no accessory muscle respiration use. Trachea central. LUNGS: Present is clear to auscultation percussion. There is no rhonchi rales or wheezing. HEART: S1-S2 is heard S1 is of normal intensity. There is no S3 gallop. There is no S4 gallop. There is systolic murmur left sternal border and the apex there is no rub. ABDOMEN: Is soft. Obese. There is no hepatospleno megaly. Bowel sounds are well heard. EXTREMITIES: Femorals are deep. Femorals are diminished. Leg pulses are well felt. There is no pedal edema. There is no redness or evidence of inflammation.. No definite signs of DVT.. There is no DVT or cellulitis. There is no calf tenderness. SUPPLEMENTAL MANAGER: The patient is conscious awake alert oriented x3 with no focal deficits. PSYCHIATRIC: Patient judgment insight are intact her affect is normal. Abnormal - 24 hr 01/26/19 09:49 POC Glucose 112 H Chest X-Ray 01/22/19 17:49 IMPRESSION: NO ACUTE RADIOGRAPHIC FINDING IN THE CHEST. Venous Doppler Study 01/25/19 00:00 IMPRESSION: Negative examination for deep venous thrombosis in the bilateral lower extremities. The distal left superficial femoral vein is poorly visualized. Head CT 01/26/19 09:56 IMPRESSION: NORMAL BRAIN CT WITHOUT CONTRAST. EVIDENCE OF ACUTE STROKE: NO. EKG: Sinus Rhythm. EKG within normal limits. QTc is normal at 424. IMPRESSION/RECOMMENDATION: 1. Paroxysmal atrial fibrillation. At present patient in sinus mechanism. In view of this would agree with continue the patient on Eliquis 5 mg p.o. twice daily. Would recommend discontinue the patient's Cardizem and start the patient on sotalol at 40 mg p.o. every 12 hours and watch the QTC and watch also for proarrhythmias. Note that the patient's corrected Des Vasc 2 score is 3. 2. Bronchial asthma: At present no acute exacerbation of asthma. Note that the patient has seasonal allergies. 3. Hypertension: Blood pressure well controlled 4. Diabetes mellitus. This is a new diagnosis adjustment made this admission. Continue Accu-Cheks and current antidiabetic regimen 5. Obstructive sleep apnea: Patient encouraged to wear CPAP. 6. Hyperlipidemia. Continue statin. 7. Morbid obesity. 8. Multiple CAD risk factors: Would strongly recommend IV Lexiscan Cardiolite stress test this can be done as an outpatient. Also will get an echo to assess the patient's systolic murmur which also can be done as an outpatient. 9. Systolic murmur: Most likely mitral regurgitation. 10. Edema left lower extremity greater than right. This is resolved. 11. Nubain side effects, now resolved. Medications reviewed. Management plan discussed with attending physician on the case. Medical decision making is of moderate complexity. Cardiac status is stable. Will sign off, and follow the patient in the office. Note 40 minutes spent on this patient more than 50% of time spent in direct patient care
[2019-01-26] MEDS: ATORVASTATIN CALCIUM 10 MG TABLET PO SCH (21:39)
[2019-01-26] MEDS: ZOLPIDEM TARTRATE 5 MG TABLET PO PRN (21:41)
--- NOTE | 2019-01-27 00:23 | EKG REPORT ---
SEVERITY:- NORMAL ECG - SINUS RHYTHM : Confirmed by: Kimberley Lopez 27-Jan-2019 00:22:39
[2019-01-27] MEDS: BUDESONIDE NEB 0.5 MG/2 ML AMPUL NEB SCH (08:11)
--- NOTE | 2019-01-27 09:20 | PDOC DISCHARGE SUMMARY ---
Impression - Admit/DC Date/PCP Admission Date/Primary Care Provider: 01/22/19 20:10 Discharge Date: 01/27/19 - Discharge Diagnosis (1) Atrial fibrillation with RVR Is this a current diagnosis for this admission?: Yes (2) Essential hypertension Is this a current diagnosis for this admission?: Yes (3) Morbid obesity Is this a current diagnosis for this admission?: Yes (4) Obstructive sleep apnea Is this a current diagnosis for this admission?: Yes - Assessment Summary: 01/23/2019- Atrial fibrillation with RVR-patient is sinus rhythm at this time. We will continue p.o. Cardizem. Eliquis. Continue to monitor Essential hypertension-continue home medication continue Cardizem Obstructive sleep apnea-patient is on CPAP. Last evaluation was probably 5 years ago. Will have patient follow-up with Dr. Lopez on discharge for possible follow-up sleep study Morbid obesity continue to educate about the importance of dietary restriction Type 2 diabetes mellitus-metformin 500 mg p.o. daily Dyslipidemia-atorvastatin 10 mg p.o. daily 01/24/2019- Atrial fibrillation RVR. Controlled at this time. Patient has been converted to sotalol. Continue Eliquis. Essential hypertension-stable continue to follow Instructed sleep apnea-see above Morbid obesity-continue dietary restriction and modification education Type 2 diabetes mellitus Metformin Dyslipidemia-continue atorvastatin 01/25/2019- A. fib with RVR-converted to sinus rhythm rate in 90s. Continue sotalol continue Eliquis Essential hypertension-stable Obstructive sleep apnea repeat sleep study on outpatient basis Morbid obesity continue dietary restriction modification Type 2 diabetes mellitus continue metformin Dyslipidemia continue atorvastatin 01/26/2019- A. fib with RVR- Rate controlled sinus rhythm. Continue sotalol and Eliquis Essential hypertension-stable Obstructive sleep apnea-outpatient sleep study Morbid obesity-modification of dietary intake education. Type 2 diabetes mellitus-continue metformin Dyslipidemia-continue atorvastatin Altered mental status-patient received Nubain this a.m. for headache. Patient most likely having slight reaction to this Nubain as she was listless and had altered mental status with weakness. CT of the brain was negative for any acute findings per my reading. I will await readings from radiology. Patient's vital signs at this episode were all within normal limits. Obtain a CBC and a BMP which were all negative. After patient returned from radiology she seemed more spry and able to converse. I did give her 0.3 mg subcu of epinephrine and 125 mg of IV Solu-Medrol and 4 mg of IV Zofran as patient stated she was nauseous to this episode. She is much improved at this time I will continue to follow - Additional Information Resuscitation Status: Full Code Discharge Diet: As Tolerated Discharge Activity: Activity As Tolerated Referrals: DECLAN LOPEZ MD [ACTIVE STAFF] - (for sleep study) BERNARD MARTINEZ MD [ACTIVE STAFF] - (for A-fib with RVR) Prescriptions: Sotalol HCl [Betapace 80 mg Tablet] 80 mg PO BID #30 tablet Ciprofloxacin HCl [Cipro 500 mg Tablet] 500 mg PO BID #14 tablet Apixaban [Eliquis 5 mg Tablet] 5 mg PO BID #60 tablet Metformin HCl [Glucophage 500 mg Tablet] 500 mg PO DAILY #30 tablet Atorvastatin Calcium [Lipitor 10 mg Tablet] 10 mg PO QHS #30 tablet Home Medications: Cyclobenzaprine HCl [Flexeril 10 mg Tablet] 10 mg PO Q8HP PRN 01/22/19 Fluticasone Propionate [Flonase Nasal [place] 50 Mcg/[place] 16 gm] 1 spray NASL DAILYP PRN 01/22/19 Levocetirizine Dihydrochloride [Xyzal] 5 mg PO QPM 01/22/19 Losartan/Hydrochlorothiazide [Hyzaar 50-12.5 Tablet] 1 tab PO DAILY 01/22/19 Ondansetron [Ondansetron Odt] 8 mg PO Q8HP PRN 01/22/19 Oxycodone HCl 5 ml PO Q8HP PRN 01/22/19 Apixaban [Eliquis 5 mg Tablet] 5 mg PO BID #60 tablet 01/27/19 Atorvastatin Calcium [Lipitor 10 mg Tablet] 10 mg PO QHS #30 tablet 01/27/19 Ciprofloxacin HCl [Cipro 500 mg Tablet] 500 mg PO BID #14 tablet 01/27/19 Hydrochlorothiazide [Hydrodiuril 12.5 mg Tablet] 12.5 mg PO QAM tablet 01/27/19 Losartan Potassium [Cozaar 50 mg Tablet] 50 mg PO DAILY tablet 01/27/19 Metformin HCl [Glucophage 500 mg Tablet] 500 mg PO DAILY #30 tablet 01/27/19 Sotalol HCl [Betapace 80 mg Tablet] 80 mg PO BID #30 tablet 01/27/19 History of Present Illiness History of Present Illness: CHRISTINE TSAI is a 43 year old female who presented to the ER with a one- week history of dyspnea. Patient was found to be in A. fib with RVR. Hospital Course Hospital Course: Patient presented to ER with a one-week history of dyspnea. She admits to developing his dyspnea 1 week prior and developed some chest tightness over the last 2 days prior to arrival. She felt as though this was an asthma attack and used her home asthma treatments without improvement. Her dyspnea and chest tightness are worsened with exertion and she describes dizziness as moderate in her chest tightness is mild. She denies any other accompanying signs or symptoms and admits prior similar episodes with asthma attacks. She was found to be in atrial fibrillation with RVR with rate of 152 in the ER patient was treated with IV Cardizem and show good response. Patient admitted to [facility] and Dr. Martinez was consulted. Patient placed on sotalol 40 g p.o. twice daily as converted to a sinus rhythm at this time. Patient is placed on Eliquis 5 mg p.o. twice daily for anticoagulation. Patient was also found to have a large UTI for which I placed her on Rocephin and will send her home on Cipro 500 mg twice daily x7 days. Patient will also receive metformin as she was found to have a A1c of 6.2. Patient will receive metformin 500 mg p.o. daily. Patient will follow-up with her primary care practitioner in 1 week. Patient will call and make an appointment to see Dr. Martinez for cardiology follow-up. Patient will also call Dr. Lopez's office to set up a repeat sleep study as she has not had a follow-up sleep study in 5 years. Patient is in agreement with plan of care. Patient was given a dose of Nubain for a headache and developed a severe reaction. Patient should not take new pain ever again. Physical Exam Vital Signs: Temp Pulse Resp BP Pulse Ox 98.2 F 83 20 114/61 99 01/27/19 07:31 01/27/19 07:31 01/27/19 07:31 01/27/19 07:31 01/27/19 07:31 Intake & Output 01/26/19 01/27/1901/28/19 06:59 06:59 06:59 Intake Total 1630 518 Balance 1630 518 Weight 150.9 kg 149.4 kg General appearance: PRESENT: no acute distress, well-developed, well-nourished Head exam: PRESENT: atraumatic, normocephalic Eye exam: PRESENT: conjunctiva pink, EOMI, PERRLA. ABSENT: scleral icterus Ear exam: PRESENT: normal external ear exam Mouth exam: PRESENT: moist, tongue midline Neck exam: ABSENT: carotid bruit, JVD, lymphadenopathy, thyromegaly Respiratory exam: PRESENT: clear to auscultation dario. ABSENT: rales, rhonchi, wheezes Cardiovascular exam: PRESENT: RRR. ABSENT: diastolic murmur, rubs, systolic murmur Pulses: PRESENT: normal dorsalis pedis pul Vascular exam: PRESENT: normal capillary refill GI/Abdominal exam: PRESENT: normal bowel sounds, soft. ABSENT: distended, guarding, mass, organolmegaly, rebound, tenderness Rectal exam: PRESENT: deferred Extremities exam: PRESENT: full ROM. ABSENT: calf tenderness, clubbing, pedal edema Neurological exam: PRESENT: alert, awake, oriented to person, oriented to place, oriented to time, oriented to situation, CN II-XII grossly intact. ABSENT: motor sensory deficit Psychiatric exam: PRESENT: appropriate affect, normal mood. ABSENT: homicidal ideation, suicidal ideation Skin exam: PRESENT: dry, intact, warm. ABSENT: cyanosis, rash Results Laboratory Results: WBC 7.2 10^3/uL (4.0-10.5) 01/26/19 05:15 RBC 4.23 10^6/uL (3.72-5.28) 01/26/19 05:15 Hgb 12.1 g/dL (12.0-15.5) 01/26/19 05:15 Hct 37.3 % (36.0-47.0) 01/26/19 05:15 MCV 88 fl (80-97) 01/26/19 05:15 MCH 28.7 pg (27.0-33.4) 01/26/19 05:15 MCHC 32.5 g/dL (32.0-36.0) 01/26/19 05:15 RDW 13.4 % (11.5-14.0) 01/26/19 05:15 Plt Count 377 10^3/uL (150-450) 01/26/19 05:15 Lymph % (Auto) 31.1 % (13-45) 01/22/19 18:03 [place] % (Auto) 5.5 % (3-13) 01/22/19 18:03 Eos % (Auto) 4.1 % (0-6) 01/22/19 18:03 Baso % (Auto) 1.2 % (0-2) 01/22/19 18:03 Absolute Neuts (auto) 5.1 10^3/uL (1.7-8.2) 01/22/19 18:03 Absolute Lymphs (auto) 2.7 10^3/uL (0.5-4.7) 01/22/19 18:03 Absolute Monos (auto) 0.5 10^3/uL (0.1-1.4) 01/22/19 18:03 Absolute Eos (auto) 0.4 10^3/uL (0.0-0.6) 01/22/19 18:03 Absolute Basos (auto) 0.1 10^3/uL (0.0-0.2) 01/22/19 18:03 Seg Neutrophils % 58.1 % (42-78) 01/22/19 18:03 Sodium 140.7 mmol/L (137-145) 01/26/19 05:15 Potassium 4.3 mmol/L (3.6-5.0) 01/26/19 05:15 Chloride 104 mmol/L (98-107) 01/26/19 05:15 Carbon Dioxide 25 mmol/L (22-30) 01/26/19 05:15 Anion Gap 12 (5-19) 01/26/19 05:15 BUN 11 mg/dL (7-20) 01/26/19 05:15 Creatinine 0.76 mg/dL (0.52-1.25) 01/26/19 05:15 Est GFR ( Amer) > 60 (>60) 01/26/19 05:15 Est GFR (MDRD) Non-Af > 60 (>60) 01/26/19 05:15 Glucose 104 mg/dL (75-110) 01/26/19 05:15 POC Glucose 112 mg/dL (70-110) H 01/26/19 09:49 Hemoglobin A1c % 6.2 % (4.7-6.0) H 01/23/19 07:00 Uric Acid 5.0 mg/dL (2.5-7.0) 01/26/19 05:15 Calcium 9.1 mg/dL (8.4-10.2) 01/26/19 05:15 Magnesium 1.8 mg/dL (1.6-2.3) 01/25/19 04:58 Total Bilirubin 0.5 mg/dL (0.2-1.3) 01/22/19 18:03 Direct Bilirubin 0.3 mg/dL (0.0-0.4) 01/22/19 18:03 Neonat Total Bilirubin Not Reportable 01/22/19 18:03 Neonat Direct Bilirubin Not Reportable 01/22/19 18:03 Neonat Indirect Bili Not Reportable 01/22/19 18:03 AST 29 U/L (14-36) 01/22/19 18:03 ALT 22 U/L (<35) 01/22/19 18:03 Alkaline Phosphatase 57 U/L (38-126) 01/22/19 18:03 Creatine Kinase 143 U/L (30-135) H 01/23/19 09:52 CK-MB (CK-2) 1.01 ng/mL (<4.55) 01/23/19 09:52 Troponin I < 0.012 ng/mL 01/23/19 09:52 Total Protein 7.9 g/dL (6.3-8.2) 01/22/19 18:03 Albumin 4.4 g/dL (3.5-5.0) 01/22/19 18:03 Triglycerides 113 mg/dL (<150) 01/23/19 07:00 Cholesterol 152.77 mg/dL (0-200) 01/23/19 07:00 LDL Cholesterol Direct 110 mg/dL (<100) H 01/23/19 07:00 VLDL Cholesterol 23.0 mg/dL (10-31) 01/23/19 07:00 HDL Cholesterol 31 mg/dL (>40) L 01/23/19 07:00 TSH 1.34 uIU/mL (0.47-4.68) 01/22/19 18:03 Free T4 1.19 ng/dL (0.78-2.19) 01/22/19 18:03 Free T3 pg/mL 3.47 pg/mL (2.77-5.27) 01/22/19 18:03 Serum HCG, Qual NEGATIVE (NEGATIVE) 01/22/19 18:03 Urine Color JAY JAY 01/22/19 18:03 Urine Appearance TURBID 01/22/19 18:03 Urine pH 5.0 (5.0-9.0) 01/22/19 18:03 Ur Specific [place] 1.017 01/22/19 18:03 Urine Protein NEGATIVE mg/dL (NEGATIVE) 01/22/19 18:03 Urine Glucose (UA) NEGATIVE mg/dL (NEGATIVE) 01/22/19 18:03 Urine Ketones NEGATIVE mg/dL (NEGATIVE) 01/22/19 18:03 Urine Blood MODERATE (NEGATIVE) H 01/22/19 18:03 Urine Nitrite NEGATIVE (NEGATIVE) 01/22/19 18:03 Urine Bilirubin NEGATIVE (NEGATIVE) 01/22/19 18:03 Urine Urobilinogen NEGATIVE mg/dL (<2.0) 01/22/19 18:03 Ur Leukocyte Esterase LARGE (NEGATIVE) H 01/22/19 18:03 Urine WBC (Auto) 3 /HPF 01/22/19 18:03 Urine RBC (Auto) 4 /HPF 01/22/19 18:03 Urine Bacteria (Auto) TRACE /HPF 01/22/19 18:03 Squamous Epi Cells Auto 9 /HPF 01/22/19 18:03 Urine Mucus (Auto) RARE /LPF 01/22/19 18:03 Urine Ascorbic Acid NEGATIVE (NEGATIVE) 01/22/19 18:03 01/22/19 01/22/19 01/23/19 18:03 23:55 03:32 CK-MB (CK-2) 1.28 1.07 1.03 Troponin I < 0.012 < 0.012 < 0.012 01/23/19 09:52 CK-MB (CK-2) 1.01 Troponin I < 0.012 Impressions: Chest X-Ray 01/22/19 17:49 IMPRESSION: NO ACUTE RADIOGRAPHIC FINDING IN THE CHEST. Venous Doppler Study 01/25/19 00:00 IMPRESSION: Negative examination for deep venous thrombosis in the bilateral lower extremities. The distal left superficial femoral vein is poorly visualized. Head CT 01/26/19 09:56 IMPRESSION: NORMAL BRAIN CT WITHOUT CONTRAST. EVIDENCE OF ACUTE STROKE: NO. Plan Time Spent: Greater than 30 Minutes Stroke Is this a Stroke Patient?: No Acute Heart Failure - Is this a Heart Failure Patient?: No
[2019-01-27 09:56] VITALS: BP 119/80
[2019-01-27] MEDS: HYDROCHLOROTHIAZIDE 12.5 MG TABLET PO SCH (10:00)
[2019-01-27] MEDS: LOSARTAN POTASSIUM 50 MG TABLET PO SCH (10:00)
[2019-01-27] MEDS: SOTALOL HCL 80 MG TABLET PO SCH (10:00)
[2019-01-27] MEDS: APIXABAN 5 MG TABLET PO SCH (10:00)
[2019-01-27] MEDS: FAMOTIDINE 20 MG TABLET PO SCH (10:01)
[2019-01-27] MEDS: METFORMIN HCL 500 MG TABLET PO SCH (10:01)
[2019-01-27] MEDS: DOCUSATE SODIUM 100 MG CAPSULE PO SCH (10:01)
== END 2019-01-27 10:51 | disposition home or self-care (01) | DRG 309 ==
LOC: ER 17:33 → EH 20:10 → 3N 01-23 00:16
PROVIDERS: ADMIT Emergency Medicine; ATTEND Emergency Medicine
PROC: 5A09457 Assistance with Respiratory Ventilation, 24-96 Consecutive Hours, Continuous Positive Airway Pressure (ICD-10-PCS; principal; 2019-01-23)
PROC: 3E02340 Introduction of Influenza Vaccine into Muscle, Percutaneous Approach (ICD-10-PCS; 2019-01-27)
DX: I48.0 Paroxysmal atrial fibrillation (principal); Z68.43 Body mass index [BMI] 50.0-59.9, adult; I10 Essential (primary) hypertension; E66.01 Morbid (severe) obesity due to excess calories; G47.33 Obstructive sleep apnea (adult) (pediatric); E11.9 Type 2 diabetes mellitus without complications; E78.5 Hyperlipidemia, unspecified; R41.82 Altered mental status, unspecified; T40.4X5A Adverse effect of other synthetic narcotics, initial encounter; Z23 Encounter for immunization; Z98.1 Arthrodesis status; Z82.49 Family history of ischemic heart disease and other diseases of the circulatory system; Z83.3 Family history of diabetes mellitus; Z80.9 Family history of malignant neoplasm, unspecified
CPT/HCPCS: 36415; 70450; 71045; 80048; 80053; 80061; 81001; 82550; 82553; 82962; 83036; 83735; 84439; 84443; 84481; 84484; 84550; 84703; 85025; 85027; 90686; 93005; 93010; 93970; 94660; 96374; 99291; J0171; J0696; J2300; J2405; J2550; J2930; J3490; J7614

== ENCOUNTER 2019-01-31 18:58 | Emergency (ER) | payer OTHER ==
--- NOTE | 2019-01-31 19:59 | ER Document Report ---
ED Medical Screen (RME) - General Chief Complaint: Chest Pain Stated Complaint: CHEST PAIN, SHORTNESS OF BREATH Time Seen by Provider: 01/31/19 19:54 Mode of Arrival: Wheelchair Information source: Patient Notes: 43-year-old female presented to ED for complaint of chest pain shortness of breath.. She states she was admitted last Monday for A. fib and discharged on Monday. States she has not been to a explosive operator since then. She states she has a appointment with the explosive operator on Monday coming up. Patient states she does not smoke drink or drugs. He does have a history of elevated blood pressure and cholesterol. I have greeted and performed a rapid initial assessment of this patient. A comprehensive ED assessment and evaluation of the patient, analysis of test results and completion of medical decision making process will be conducted by an additional ED providers. TRAVEL OUTSIDE OF THE [place] IN LAST 30 DAYS: No - Related Data Allergies/Adverse Reactions: nalbuphine [From Nubain] Adverse Reaction (Severe, Verified 01/26/19 20:26) Hallucinations Past Medical History - Past Medical History Cardiac Medical History: Reports: Hx Hypertension - medicated Denies: Hx Atrial Fibrillation, Hx Coronary Artery Disease, Hx DVT, Hx Heart Attack, Hx Pulmonary Embolism Pulmonary Medical History: Reports: Hx Asthma - seasonal allergies can cause wheezing., Hx Sleep Apnea Denies: Hx COPD Neurological Medical History: Denies: Hx Cerebrovascular Accident, Hx Seizures Endocrine Medical History: Denies: Hx Diabetes Mellitus Type 1, Hx Diabetes Mellitus Type 2, Hx Hyperthyroidism, Hx Hypothyroidism Renal/ Medical History: Denies: Hx Peritoneal Dialysis GI Medical History: Denies: Hx Cirrhosis, Hx Crohn's Disease, Hx Gastroesophageal Reflux Disease, Hx Hepatitis, Hx Hiatal Hernia, Hx Ulcer, Hx Ulcerative Colitis Musculoskeltal Medical History: Denies Hx Arthritis, Denies Hx Fibromyalgia Skin Medical History: Denies Hx Eczema, Denies Hx Psoriasis Psychiatric Medical History: Denies: Hx Depression Infectious Medical History: Denies: Hx Hepatitis Past Surgical History: Reports: Hx Section - x2, September 16, 2016, Hx Cholecystectomy, Hx Myringotomy. Denies: Hx Hysterectomy, Hx Mastectomy, Hx Open Heart Surgery, Hx Pacemaker - Immunizations Hx Diphtheria, Pertussis, Tetanus Vaccination: Yes Physical Exam - Vital signs Vitals: Temp Pulse Resp BP Pulse Ox 98.5 F 79 17 137/72 H 99 10/24/19 19:30 01/31/19 19:30 01/31/19 19:30 01/31/19 19:30 01/31/19 19:30 Course - Vital Signs Vital signs: Temp Pulse Resp BP Pulse Ox 98.5 F 79 17 137/72 H 99 01/31/19 19:30 01/31/19 19:30 01/31/19 19:30 01/31/19 19:30 01/31/19 19:30
--- NOTE | 2019-01-31 20:18 | EKG REPORT ---
SEVERITY:- BORDERLINE ECG - SINUS RHYTHM BORDERLINE T ABNORMALITIES, DIFFUSE LEADS : Confirmed by: Maggi Mireles MD 31-Jan-2019 20:16:52
[2019-01-31 20:52] LABS: ABSOLUTE BASOPHILS # (AUTO) 0.1 10^3/uL (0.0-0.2); ABSOLUTE EOSINOPHILS # (AUTO) 0.3 10^3/uL (0.0-0.6); ABSOLUTE MONOCYTES (AUTO) 0.5 10^3/uL (0.1-1.4); ABSOLUTE NEUT (AUTO) 4.8 10^3/uL (1.7-8.2); EOSINOPHILS % (AUTO) 3.8 % (0-6); HEMATOCRIT 40.8 % (36.0-47.0); LYMPHOCYTES % (AUTO) 34.8 % (13-45); MEAN CORPUSCULAR HGB CONC 31.8 g/dL (32.0-36.0); MEAN CORPUSCULAR VOLUME 88 fl (80-97); MONOCYTES % (AUTO) 5.8 % (3-13); PLATELET COUNT 404 10^3/uL (150-450); RED BLOOD COUNT 4.64 10^6/uL (3.72-5.28); RED CELL DISTRIBUTION WIDTH 13.2 % (11.5-14.0); SEGMENTED NEUTROPHILS % (AUTO) 54.6 % (42-78); TOTAL CELLS COUNTED % (AUTO) 100 %; WHITE BLOOD COUNT 8.7 10^3/uL (4.0-10.5)
--- NOTE | 2019-01-31 20:53 | RADIOLOGY REPORT (SQ) ---
EXAM DESCRIPTION: XR CHEST 2 VIEWS COMPLETED DATE/TME: 01/31/2019 20:00 CLINICAL HISTORY: 43 years, Female, chest pain COMPARISON: X-ray chest 01/22/2019 NUMBER OF VIEWS: TECHNIQUE: LIMITATIONS: None. FINDINGS: No evidence of pulmonary infiltrate or pleural effusion. The heart and mediastinum are unremarkable Pulmonary vascularity appears normal. There are postoperative changes in the lower cervical spine. There is no significant change, as compared with the prior x-ray(s). IMPRESSION: No acute finding. copyright 2010 [employer]- All Rights Reserved
[2019-01-31 21:12] LABS: INTERNATIONAL RATION (INR) 1.18; PROTHROMBIN TIME 15.1 SEC (11.4-15.4)
[2019-01-31 21:13] LABS: PARTIAL THROMBOPLASTIN TIME 30.1 SEC (23.5-35.8)
[2019-01-31 21:15] LABS: ALBUMIN 4.1 g/dL (3.5-5.0); ALKALINE PHOSPHATASE 59 U/L (38-126); ANION GAP 10 (5-19); ASPARTATE AMINO TRANSFERASE 19 U/L (14-36); BILIRUBIN,DIRECT 0.2 mg/dL (0.0-0.4); BILIRUBIN,TOTAL 0.5 mg/dL (0.2-1.3); BLOOD UREA NITROGEN 15 mg/dL (7-20); CALCIUM 9.3 mg/dL (8.4-10.2); CARBON DIOXIDE 28 mmol/L (22-30); CHLORIDE 102 mmol/L (98-107); CREATINE KINASE 100 U/L (30-135); GLUCOSE 95 mg/dL (75-110); POTASSIUM 3.9 mmol/L (3.6-5.0); TOTAL PROTEIN 7.4 g/dL (6.3-8.2)
[2019-01-31 21:25] LABS: NT PRO BNP 21 pg/mL (<125)
[2019-01-31 21:26] LABS: TROPONIN I < 0.012 ng/mL
[2019-01-31 21:29] LABS: D-DIMER < 0.27 ug/mL (0.00-0.50)
--- NOTE | 2019-01-31 22:39 | ER Document Report ---
ED General - General Chief Complaint: Chest Pain Stated Complaint: CHEST PAIN, SHORTNESS OF BREATH Time Seen by Provider: 01/31/19 19:54 Mode of Arrival: Wheelchair Notes: Patient is a 43-year-old female with history of A. fib that presents to the emergency department for chief complaint of chest pain or shortness of breath. 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 She was recently in the hospital and and was diagnosed with new onset atrial fibrillation, she was discharged home on sotalol, Eliquis and advised to follow- up with cardiology, she has appointment next week. She at this time denies having any chest pain, at its worst she rated it as a 5 out of 10, but it is now a 0 out of 10. She denies any new swelling in her legs. And denies having any nausea, vomiting or abdominal pain. Past Medical History: Atrial fibrillation, hyperlipidemia, hypertension Past Surgical History: Neck surgery Social History: Denies current tobacco, alcohol or drug use. Family History: Reviewed and noncontributory for presenting illness Allergies: Reviewed, see documented allergy list. REVIEW OF SYSTEMS: Other than noted above, the 12 point review of systems was reviewed with the patient and were negative, all pertinent findings are included in the HPI. PHYSICAL EXAMINATION: Vital signs reviewed, nursing noted reviewed. GENERAL: Obese female, no acute distress. HEAD: Atraumatic, normocephalic. EYES: Eyes appear normal, extraocular movements intact, sclera anicteric, conjunctiva are normal. ENT: nares patent, oropharynx clear without exudates. Moist mucous membranes. NECK: Normal range of motion, supple without lymphadenopathy LUNGS: Breath sounds clear to auscultation bilaterally and equal. No wheezes rales or rhonchi. HEART: Regular rate and rhythm without murmurs ABDOMEN: Soft, nontender, normoactive bowel sounds. No rebound, guarding, or rigidity. No masses appreciated. EXTREMITIES: Nontender, good range of motion, no pitting or edema. NEUROLOGICAL: No focal neurological deficits. Moves all extremities spontaneously Motor and sensory grossly intact on exam. PSYCH: Normal mood, normal affect. SKIN: Warm, Dry, normal turgor, no rashes or lesions noted on exposed skin TRAVEL OUTSIDE OF THE [place] IN LAST 30 DAYS: No - Related Data Allergies/Adverse Reactions: nalbuphine [From Nubain] Adverse Reaction (Severe, Verified 01/26/19 20:26) Hallucinations Past Medical History - General Information source: Patient - Social History Smoking Status: Never Smoker Chew tobacco use (# tins/day): No Frequency of alcohol use: None Family History: CAD, DM, Hypertension, Malignancy, Other - Asthma Patient has suicidal ideation: No Patient has homicidal ideation: No - Past Medical History Cardiac Medical History: Reports: Hx Hypertension - medicated Denies: Hx Atrial Fibrillation, Hx Coronary Artery Disease, Hx DVT, Hx Heart Attack, Hx Pulmonary Embolism Pulmonary Medical History: Reports: Hx Asthma - seasonal allergies can cause wheezing., Hx Sleep Apnea Denies: Hx COPD Neurological Medical History: Denies: Hx Cerebrovascular Accident, Hx Seizures Endocrine Medical History: Denies: Hx Diabetes Mellitus Type 1, Hx Diabetes Mellitus Type 2, Hx Hyperthyroidism, Hx Hypothyroidism Renal/ Medical History: Denies: Hx Peritoneal Dialysis GI Medical History: Denies: Hx Cirrhosis, Hx Crohn's Disease, Hx Gastroesophageal Reflux Disease, Hx Hepatitis, Hx Hiatal Hernia, Hx Ulcer, Hx Ulcerative Colitis Musculoskeletal Medical History: Denies Hx Arthritis, Denies Hx Fibromyalgia Skin Medical History: Denies Hx Eczema, Denies Hx Psoriasis Psychiatric Medical History: Denies: Hx Depression Infectious Medical History: Denies: Hx Hepatitis Past Surgical History: Reports: Hx Section - x2, September 16, 2016, Hx Cholecystectomy, Hx Myringotomy. Denies: Hx Hysterectomy, Hx Mastectomy, Hx Open Heart Surgery, Hx Pacemaker - Immunizations Hx Diphtheria, Pertussis, Tetanus Vaccination: Yes Physical Exam - Vital signs Vitals: Temp Pulse Resp BP Pulse Ox 98.5 F 79 17 137/72 H 99 01/31/19 19:30 01/31/19 19:30 01/31/19 19:30 01/31/19 19:30 01/31/19 19:30 Course - Re-evaluation Re-evalutation: Patient seen and examined vital signs reviewed. Laboratory data and/or imaging were ordered as appropriate for the patient's presenting symptoms and complaint, with consideration of any critical or life threatening conditions that may be associated with their obtained history and exam as noted above. Results were reviewed when available and demonstrated unremarkable work-up, negative troponin, EKG was unchanged from her prior, and chest x-ray negative, d-dimer negative and patient is chest pain-free on repeat evaluation. The patient was re-evaluated and was stable Evaluation was most consistent with chest pain, unlikely cardiac etiology, likely anxiety versus reflux, she has had a recent cardiac work-up has been negative, and her troponin today was negative as well, she has an upcoming appointment cardiology, advised her to follow-up with that and continue taking her home medications. Results were discussed with the patient at this point, after careful consideration I feel that that patient can be discharged from the emergency department, the patient was educated treatments and reasons to return to the emergency department based on their presumed diagnosis as noted above, they were advised to followup with a primary care physician in 2-3 days. Patient was agreeable to plan of care. *Note is created using voice recognition software and may contain spelling, syntax or grammatical errors. Laboratory 01/31/19 01/31/19 01/31/19 20:30 20:30 20:30 WBC 8.7 RBC 4.64 Hgb 13.0 Hct 40.8 MCV 88 MCH 28.0 MCHC 31.8 L RDW 13.2 Plt Count 404 Lymph % (Auto) 34.8 [place] % (Auto) 5.8 Eos % (Auto) 3.8 Baso % (Auto) 1.0 Absolute Neuts (auto) 4.8 Absolute Lymphs (auto) 3.0 Absolute Monos (auto) 0.5 Absolute Eos (auto) 0.3 Absolute Basos (auto) 0.1 Seg Neutrophils % 54.6 PT 15.1 INR 1.18 APTT 30.1 D-Dimer < 0.27 Sodium 139.5 Potassium 3.9 Chloride 102 Carbon Dioxide 28 Anion Gap 10 BUN 15 Creatinine 0.77 Est GFR ( Amer) > 60 Est GFR (MDRD) Non-Af > 60 Glucose 95 Calcium 9.3 Magnesium 2.0 Total Bilirubin 0.5 Direct Bilirubin 0.2 Neonat Total Bilirubin Not Reportable Neonat Direct Bilirubin Not Reportable Neonat Indirect Bili Not Reportable AST 19 ALT 17 Alkaline Phosphatase 59 Creatine Kinase 100 CK-MB (CK-2) Troponin I NT-Pro-B Natriuret Pep Total Protein 7.4 Albumin 4.1 TSH 01/31/19 01/31/19 20:30 20:30 WBC RBC Hgb Hct MCV MCH MCHC RDW Plt Count Lymph % (Auto) [place] % (Auto) Eos % (Auto) Baso % (Auto) Absolute Neuts (auto) Absolute Lymphs (auto) Absolute Monos (auto) Absolute Eos (auto) Absolute Basos (auto) Seg Neutrophils % PT INR APTT D-Dimer Sodium Potassium Chloride Carbon Dioxide Anion Gap BUN Creatinine Est GFR ( Amer) Est GFR (MDRD) Non-Af Glucose Calcium Magnesium Total Bilirubin Direct Bilirubin Neonat Total Bilirubin Neonat Direct Bilirubin Neonat Indirect Bili AST ALT Alkaline Phosphatase Creatine Kinase CK-MB (CK-2) 0.80 Troponin I < 0.012 NT-Pro-B Natriuret Pep 21 Total Protein Albumin TSH 1.35 Chest X-Ray 01/31/19 20:00 IMPRESSION: No acute finding. copyright 2010 [employer]- All Rights Reserved - Vital Signs Vital signs: Temp Pulse Resp BP Pulse Ox 98.5 F 79 17 137/72 H 99 01/31/19 19:30 01/31/19 19:30 01/31/19 19:30 01/31/19 19:30 01/31/19 19:30 - Laboratory Result Diagrams: 01/31/19 20:30 01/31/19 20:30 Laboratory results interpreted by me: 01/31/19 20:30 MCHC 31.8 L - EKG Interpretation by Me Additional EKG results interpreted by me: EKG demonstrates sinus rhythm with a ventricular rate of 84 bpm, normal axis, normal intervals, no evidence of acute ischemia in this EKG this is compared with a prior EKG from 01/26/2019, without significant change. Discharge - Discharge Clinical Impression: Chest pain Qualifiers: Chest pain type: unspecified Qualified Code(s): R07.9 - Chest pain, unspecified Condition: Stable Disposition: HOME, SELF-CARE Instructions: Chest Pain of Unclear Cause ([facility]) Additional Instructions: Please keep your appointment with Dr. Wolf, to discuss a possible Holter monitor, to further monitor your A. fib. Your work-up today did not demonstrate any signs of injury or damage to your heart. Referrals: BERNARD MARTINEZ MD [ACTIVE STAFF] - Follow up in 1 week
[2019-01-31 23:05] VITALS: BP 122/83
== END 2019-01-31 23:15 | disposition home or self-care (01) ==
LOC: ER 18:58
DX: R07.9 Chest pain, unspecified (principal); R06.02 Shortness of breath; I48.91 Unspecified atrial fibrillation; E78.5 Hyperlipidemia, unspecified; I10 Essential (primary) hypertension; Z90.49 Acquired absence of other specified parts of digestive tract
CPT/HCPCS: 36415; 71046; 80053; 82550; 82553; 83735; 83880; 84443; 84484; 85025; 85379; 85610; 85730; 93005; 93010

== ENCOUNTER 2019-02-05 13:30 | Emergency (ER) | payer OTHER ==
[2019-02-05] MEDS ORDERED: ASPIRIN 81 MG TABLET, CHEWABLE PO ONE (13:37)
--- NOTE | 2019-02-05 13:39 | ER Document Report ---
ED Medical Screen (RME) - General Stated Complaint: HEART PALPITATIONS, CHEST PAIN Time Seen by Provider: 02/05/19 13:37 Primary Care Provider: ISAAK MONTANEZ PA [Primary Care Provider] - Follow up as needed Mode of Arrival: Wheelchair Information source: Patient Notes: This 43-year-old female with history of A. fib currently taking Eliquis presents emergency department with complaints of palpitations chest pain shortness of breath started this morning. Patient was at school when the school nurse checked her reports that her heart rate went from 70 and then shot up very quick she felt nauseated and short of breath.. Reports she was recently admitted to the hospital for a week with same type symptoms that is when they discovered atrial fib. I have greeted and performed a rapid initial assessment of this patient. A comprehensive ED assessment and evaluation of the patient, analysis of test results and completion of the medical decision making process will be conducted by additional ED providers. Dictation of this chart was performed using voice recognition software; therefore, there may be some unintended grammatical errors. TRAVEL OUTSIDE OF THE [place] IN LAST 30 DAYS: No - Related Data Allergies/Adverse Reactions: nalbuphine [From Nubain] Adverse Reaction (Severe, Verified 02/05/19 13:38) Hallucinations Past Medical History - Past Medical History Cardiac Medical History: Reports: Hx Hypertension - medicated Denies: Hx Atrial Fibrillation, Hx Coronary Artery Disease, Hx DVT, Hx Heart Attack, Hx Pulmonary Embolism Pulmonary Medical History: Reports: Hx Asthma - seasonal allergies can cause wheezing., Hx Sleep Apnea Denies: Hx COPD Neurological Medical History: Denies: Hx Cerebrovascular Accident, Hx Seizures Endocrine Medical History: Denies: Hx Diabetes Mellitus Type 1, Hx Diabetes Mellitus Type 2, Hx Hyperthyroidism, Hx Hypothyroidism Renal/ Medical History: Denies: Hx Peritoneal Dialysis GI Medical History: Denies: Hx Cirrhosis, Hx Crohn's Disease, Hx Gastroesophageal Reflux Disease, Hx Hepatitis, Hx Hiatal Hernia, Hx Ulcer, Hx Ulcerative Colitis Musculoskeltal Medical History: Denies Hx Arthritis, Denies Hx Fibromyalgia Skin Medical History: Denies Hx Eczema, Denies Hx Psoriasis Psychiatric Medical History: Denies: Hx Depression Infectious Medical History: Denies: Hx Hepatitis Past Surgical History: Reports: Hx Section - x2, September 16, 2016, Hx Cholecystectomy, Hx Myringotomy. Denies: Hx Hysterectomy, Hx Mastectomy, Hx Open Heart Surgery, Hx Pacemaker - Immunizations Hx Diphtheria, Pertussis, Tetanus Vaccination: Yes Doctor's Discharge - Discharge Referrals: ISAAK MONTANEZ PA [Primary Care Provider] - Follow up as needed
--- NOTE | 2019-02-05 14:17 | RADIOLOGY REPORT (SQ) ---
EXAM DESCRIPTION: CHEST 2 VIEWS COMPLETED DATE/TIME: 02/05/2019 2:07 pm REASON FOR STUDY: cp COMPARISON: 01/31/2019 EXAM PARAMETERS: NUMBER OF VIEWS: two views TECHNIQUE: Digital Frontal and Lateral radiographic views of the chest acquired. RADIATION DOSE: NA LIMITATIONS: none FINDINGS: LUNGS AND PLEURA: No opacities, masses or pneumothorax. No pleural effusion. MEDIASTINUM AND HILAR STRUCTURES: No masses or contour abnormalities. HEART AND VASCULAR STRUCTURES: Heart normal size. No evidence for failure. BONES: No acute findings. HARDWARE: None in the chest. OTHER: No other significant finding. IMPRESSION: No acute abnormality of the lungs. No focal airspace opacity. TECHNICAL DOCUMENTATION: JOB ID: [id number] [employer]- All Rights Reserved Reading location - IP/workstation name: [email or web address]
[2019-02-05 14:36] LABS: INTERNATIONAL RATION (INR) 1.16; PROTHROMBIN TIME 14.8 SEC (11.4-15.4)
[2019-02-05 14:37] LABS: PARTIAL THROMBOPLASTIN TIME 32.5 SEC (23.5-35.8)
[2019-02-05 14:39] LABS: ABSOLUTE BASOPHILS # (AUTO) 0.2 10^3/uL (0.0-0.2); ABSOLUTE EOSINOPHILS # (AUTO) 0.3 10^3/uL (0.0-0.6); ABSOLUTE LYMPHOCYTES (AUTO) 2.3 10^3/uL (0.5-4.7); ABSOLUTE MONOCYTES (AUTO) 0.5 10^3/uL (0.1-1.4); ABSOLUTE NEUT (AUTO) 3.7 10^3/uL (1.7-8.2); BASOPHILS % (AUTO) 2.2 % (0-2); EOSINOPHILS % (AUTO) 4.7 % (0-6); HEMATOCRIT 37.4 % (36.0-47.0); HEMOGLOBIN 12.4 g/dL (12.0-15.5); LYMPHOCYTES % (AUTO) 33.2 % (13-45); MEAN CORPUSCULAR HEMOGLOBIN 28.7 pg (27.0-33.4); MEAN CORPUSCULAR VOLUME 87 fl (80-97); MONOCYTES % (AUTO) 6.8 % (3-13); PLATELET COUNT 377 10^3/uL (150-450); RED CELL DISTRIBUTION WIDTH 13.1 % (11.5-14.0); SEGMENTED NEUTROPHILS % (AUTO) 53.1 % (42-78); TOTAL CELLS COUNTED % (AUTO) 100 %
--- NOTE | 2019-02-05 14:46 | ER Document Report ---
ED General - General Chief Complaint: Palpitations Stated Complaint: HEART PALPITATIONS, CHEST PAIN Time Seen by Provider: 02/05/19 13:37 Primary Care Provider: ISAAK MONTANEZ PA [Primary Care Provider] - Follow up as needed Mode of Arrival: Wheelchair TRAVEL OUTSIDE OF THE [place] IN LAST 30 DAYS: No - HPI Notes: Patient is a 43-year-old female with history of hypertension, type 2 diabetes, obesity, hyperlipidemia, and A. fib (on Eliquis) who presents complaining of palpitations that have been intermittent since this morning. Patient states that she had 1 or 2 episodes where she felt short of breath when her heart rate was going fast, but that has since resolved. She did have brief dizziness and nausea that accompanied the palpitations that has not recurred. She has not had any significant 'chest pain.' Patient states that she is currently feeling well in the emergency department. She was diagnosed with A. fib 2 weeks ago. She is on a beta-maggie with the Eliquis. She has been able to eat and drink without difficulty. She is urinating normally and having normal bowel movements. No recent illness. Denies drugs or alcohol. Denies any prolonged immobilization, distance travel, recent surgery/trauma, personal cancer history, hormone use, smoking, or previous DVT/PE. Denies any headache, fever, neck pain, URI, sore throat, chest pain, syncope, cough, wheeze, dyspnea, abdominal pain, vomiting/diarrhea, urinary retention, dysuria, hematuria, loss of control of bowel or bladder, numbness/tingling, muscle paralysis/weakness, or rash. Pt is scheduled with Dr. Gonzalez, cardio, in the morning already. - Related Data Allergies/Adverse Reactions: nalbuphine [From Nubain] Adverse Reaction (Severe, Verified 02/05/19 13:38) Hallucinations Past Medical History - General Information source: Patient - Social History Smoking Status: Never Smoker Chew tobacco use (# tins/day): No Frequency of alcohol use: None Drug Abuse: None Family History: CAD, DM, Hypertension, Malignancy, Other - Asthma Patient has suicidal ideation: No Patient has homicidal ideation: No - Past Medical History Cardiac Medical History: Reports: Hx Hypertension - medicated Denies: Hx Atrial Fibrillation, Hx Coronary Artery Disease, Hx DVT, Hx Heart Attack, Hx Pulmonary Embolism Pulmonary Medical History: Reports: Hx Asthma - seasonal allergies can cause wheezing., Hx Sleep Apnea Denies: Hx COPD Neurological Medical History: Denies: Hx Cerebrovascular Accident, Hx Seizures Endocrine Medical History: Denies: Hx Diabetes Mellitus Type 1, Hx Diabetes Mellitus Type 2, Hx Hyperthyroidism, Hx Hypothyroidism Renal/ Medical History: Denies: Hx Peritoneal Dialysis GI Medical History: Denies: Hx Cirrhosis, Hx Crohn's Disease, Hx Gastroesophageal Reflux Disease, Hx Hepatitis, Hx Hiatal Hernia, Hx Ulcer, Hx Ulcerative Colitis Musculoskeletal Medical History: Denies Hx Arthritis, Denies Hx Fibromyalgia Skin Medical History: Denies Hx Eczema, Denies Hx Psoriasis Psychiatric Medical History: Denies: Hx Depression Infectious Medical History: Denies: Hx Hepatitis Past Surgical History: Reports: Hx Section - x2, September 16, 2016, Hx Cholecystectomy, Hx Myringotomy. Denies: Hx Hysterectomy, Hx Mastectomy, Hx Open Heart Surgery, Hx Pacemaker - Immunizations Hx Diphtheria, Pertussis, Tetanus Vaccination: Yes Review of Systems - Review of Systems -: Yes All other systems reviewed and negative Physical Exam - Vital signs Vitals: Temp Pulse Resp BP Pulse Ox 98.2 F 94 16 149/81 H 97 02/05/19 13:43 02/05/19 13:43 02/05/19 13:43 02/05/19 13:43 02/05/19 13:43 - Notes Notes: PHYSICAL EXAMINATION: GENERAL: Well-appearing, well-nourished and in no acute distress. HEAD: Atraumatic, normocephalic. EYES: Pupils equal round and reactive to light, extraocular movements intact, sclera anicteric, conjunctiva are normal. ENT: Nares patent and without discharge. oropharynx clear without exudates. No tonsilar hypertrophy or erythema. Moist mucous membranes. NECK: Normal range of motion, supple without lymphadenopathy LUNGS: Breath sounds clear to auscultation bilaterally and equal. No wheezes rales or rhonchi. HEART: Regular rate and rhythm without murmurs, rubs, gallops. ABDOMEN: Soft, nontender, nondistended abdomen. No guarding, no rebound. Normal bowel sounds present. No CVA tenderness bilaterally. Musculoskeletal: FROM to passive/active. Strength 5+/5. Ubaldo neg. No asymmetry to LE's. Extremities: trace pitting edema b/l LE's. Peripheral pulses 2+. Capillary refill less than 3 seconds. NEUROLOGICAL: Normal speech, normal gait. PSYCH: Normal mood, normal affect. SKIN: Warm, Dry, normal turgor, no rashes or lesions noted. Course - Re-evaluation Re-evalutation: 02/05/19 14:47 We will check labs, CXR, EKG, and place on monitor. EKG sinus rhythm, regular rhythm at 90bpm, without acute ST-T changes. 02/05/19 18:16 Patient is an afebrile, well-hydrated 43-year-old female who presents to the ED with palpitations, unspecified. Vitals are acceptable without any significant tachycardia, tachypnea, or hypoxia. PE is otherwise unremarkable. Patient is nontoxic-appearing and is tolerating p.o. without any difficulties. Pt is currently asymptomatic. CBC, CMP, EKG/cardiac enzymes 2, chest x-ray are all unremarkable for any acute pathology. Pt has been on the monitor without any rhythm changes noted from sinus. Patient has a heart score of 2, Wells score of 0, and is PERC negative. Patient does not have any chest pain, dyspnea, or shortness of breath. Patient's presentation and symptomatology creates low suspicion for ACS, PE, pneumothorax, pericarditis, dissection, respiratory compromise, severe dehydration, sepsis, meningitis, or other systemic emergent condition at this time. Patient is aware that this condition can change from initial presentation and she needs to monitor symptoms closely and seek medical attention for any acute changes. Pt is feeling better and would like to go home. Recommend conservative measures for symptoms. Recheck with your PCM in 2-3 days. Keep appointment with cardio tomorrow morning. Return to the ED with any worsening/concerning symptoms otherwise as reviewed in discharge. Patient is in agreement. - Vital Signs Vital signs: Temp Pulse Resp BP Pulse Ox 98.2 F 94 22 H 142/70 H 100 02/05/19 13:43 02/05/19 13:43 02/05/19 16:04 02/05/19 16:17 02/05/19 16:04 - Laboratory Result Diagrams: 02/05/19 13:50 02/05/19 13:50 Laboratory results interpreted by me: 02/05/19 02/05/19 13:50 15:50 Baso % (Auto) 2.2 H Urine Blood LARGE H Leukocyte Esterase Rfl TRACE H - EKG Interpretation by Me EKG shows normal: Sinus rhythm Rate: Normal Rhythm: NSR When compared to previous EKG there are: No significant change Discharge - Discharge Clinical Impression: Palpitations Condition: Stable Disposition: HOME, SELF-CARE Additional Instructions: Maintain adequate fluid and food intake Take home medications as directed Healthy diet Monitor blood pressure daily and keep a log Monitor symptoms for any acute changes Recheck with your PCM in 3-5 days Keep follow-up with cardiology in the morning* Return to the ED with any worsening symptoms and/or development of fever, headache, chest pain, palpitations, syncope, shortness of breath, trouble breathing, abdominal pain, n/v/d, blood in stool/urine, loss of control of bowel/bladder, urinary retention, muscle weakness/paralysis, numbness/tingling, or other worsening symptoms that are concerning to you. Forms: Elevated Blood Pressure Referrals: ISAAK MONTANEZ PA [Primary Care Provider] - Follow up as needed APRIL GONZALEZ MD [ACTIVE STAFF] - Follow up tomorrow
[2019-02-05 14:47] LABS: ALBUMIN 3.9 g/dL (3.5-5.0); ALKALINE PHOSPHATASE 49 U/L (38-126); ANION GAP 9 (5-19); ASPARTATE AMINO TRANSFERASE 19 U/L (14-36); BILIRUBIN,DIRECT 0.1 mg/dL (0.0-0.4); BILIRUBIN,TOTAL 0.4 mg/dL (0.2-1.3); BLOOD UREA NITROGEN 10 mg/dL (7-20); CALCIUM 9.2 mg/dL (8.4-10.2); CARBON DIOXIDE 30 mmol/L (22-30); CHLORIDE 102 mmol/L (98-107); CREATINE KINASE 80 U/L (30-135); GLUCOSE 107 mg/dL (75-110); POTASSIUM 3.6 mmol/L (3.6-5.0); TOTAL PROTEIN 6.8 g/dL (6.3-8.2)
[2019-02-05 14:59] LABS: CREATINE KINASE MB 0.71 ng/mL (<4.55)
[2019-02-05 15:02] LABS: TROPONIN I < 0.012 ng/mL
--- NOTE | 2019-02-05 15:32 | EKG REPORT ---
SEVERITY:- BORDERLINE ECG - SINUS RHYTHM BORDERLINE T ABNORMALITIES, ANTERIOR LEADS : Confirmed by: Mane Maldonado MD 05-Feb-2019 15:31:46
[2019-02-05 16:12] LABS: APPEARANCE,URINE CLEAR; BILIRUBIN,URINE NEGATIVE (NEGATIVE); COLOR,URINE YELLOW; GLUCOSE, URINE NEGATIVE (NEGATIVE); KETONES,URINE NEGATIVE (NEGATIVE); PROTEIN,URINE NEGATIVE (NEGATIVE); URINE SPECIFIC GRAVITY 1.021; UROBILINOGEN,URINE NEGATIVE mg/dL (<2.0)
[2019-02-05 18:32] VITALS: BP 130/88
== END 2019-02-05 18:33 | disposition home or self-care (01) ==
LOC: ER 13:30
DX: R00.2 Palpitations (principal); I10 Essential (primary) hypertension; E11.9 Type 2 diabetes mellitus without complications; E66.9 Obesity, unspecified; I48.91 Unspecified atrial fibrillation; Z79.01 Long term (current) use of anticoagulants; Z90.49 Acquired absence of other specified parts of digestive tract
CPT/HCPCS: 36415; 71046; 80053; 81001; 82550; 82553; 83735; 84443; 84484; 84703; 85025; 85610; 85730; 87086; 93005; 93010; 99285

== ENCOUNTER → 2019-02-22 | Outpatient (CLI) | payer OTHER ==
--- NOTE | 2019-02-22 17:16 | RADIOLOGY REPORT (SQ) ---
EXAM DESCRIPTION: U/S NON-OB PELVIS TV W/O DOP COMPLETED DATE/TIME: 02/22/2019 5:01 pm REASON FOR STUDY: N92.6 IRREGULAR MENSTRUATION, UNSPECIFIED N92.6 IRREGULAR MENSTRUATION, UNSPECIFI ED COMPARISON: None. TECHNIQUE: Dynamic and static grayscale images acquired of the pelvis via transvaginal approach and recorded on PACS. Additional selected color Doppler and spectral images recorded. LIMITATIONS: None. FINDINGS: UTERUS: Mild prominent appearing uterus. Contour normal. No mass. ENDOMETRIAL STRIPE: No focal or generalized thickening. No masses. CERVIX: The cervix measures 2.0 cm in length. IUD is visualized. No Nabothian cysts. RIGHT OVARY AND DOPPLER: Normal size. No worrisome masses. Normal arterial vascular flow without evid ence for torsion. LEFT OVARY AND DOPPLER: Normal size. No worrisome masses. Normal arterial vascular flow without evide nce for torsion. FREE FLUID: None noted. OTHER: No other significant finding. MEASUREMENTS: UTERUS: 9.7 x 6.5 x 5.8 cm ENDOMETRIAL STRIPE: 0.3 cm RIGHT OVARY: Not visualized LEFT OVARY: Not visualized IMPRESSION: 1. IUD is visualized within the cervix. Correlation suggested 2. Neither ovary is visualized sonographically. 3. Mildly prominent appearing uterus. TECHNICAL DOCUMENTATION: JOB ID: [id number] [employer]- All Rights Reserved Rev-08/25 Reading location - IP/workstation name: [email or web address]
== END ==
LOC: RAD 16:33
PROVIDERS: ATTEND Physician Assistant
DX: N92.6 Irregular menstruation, unspecified (principal)
CPT/HCPCS: 76830

== ENCOUNTER → 2019-02-23 | Outpatient (CLI) | payer OTHER ==
[2019-02-23 09:43] LABS: ABSOLUTE BASOPHILS # (AUTO) 0.1 10^3/uL (0.0-0.2); ABSOLUTE EOSINOPHILS # (AUTO) 0.9 10^3/uL (0.0-0.6); ABSOLUTE LYMPHOCYTES (AUTO) 1.9 10^3/uL (0.5-4.7); ABSOLUTE MONOCYTES (AUTO) 0.4 10^3/uL (0.1-1.4); ABSOLUTE NEUT (AUTO) 4.1 10^3/uL (1.7-8.2); EOSINOPHILS % (AUTO) 11.8 % (0-6); HEMATOCRIT 40.5 % (36.0-47.0); HEMOGLOBIN 13.2 g/dL (12.0-15.5); LYMPHOCYTES % (AUTO) 26.2 % (13-45); MEAN CORPUSCULAR HEMOGLOBIN 28.9 pg (27.0-33.4); MEAN CORPUSCULAR HGB CONC 32.7 g/dL (32.0-36.0); MEAN CORPUSCULAR VOLUME 88 fl (80-97); MONOCYTES % (AUTO) 5.9 % (3-13); PLATELET COUNT 380 10^3/uL (150-450); RED BLOOD COUNT 4.59 10^6/uL (3.72-5.28); RED CELL DISTRIBUTION WIDTH 13.4 % (11.5-14.0); SEGMENTED NEUTROPHILS % (AUTO) 55.1 % (42-78); TOTAL CELLS COUNTED % (AUTO) 100 %; WHITE BLOOD COUNT 7.4 10^3/uL (4.0-10.5)
[2019-02-23 09:55] LABS: ALKALINE PHOSPHATASE 55 U/L (38-126); ANION GAP 8 (5-19); ASPARTATE AMINO TRANSFERASE 22 U/L (14-36); BILIRUBIN,DIRECT 0.2 mg/dL (0.0-0.4); BILIRUBIN,TOTAL 0.5 mg/dL (0.2-1.3); BLOOD UREA NITROGEN 11 mg/dL (7-20); CALCIUM 9.2 mg/dL (8.4-10.2); CARBON DIOXIDE 30 mmol/L (22-30); CHLORIDE 101 mmol/L (98-107); CHOLESTEROL 119.49 mg/dL (0-200); GLUCOSE 98 mg/dL (75-110); POTASSIUM 4.2 mmol/L (3.6-5.0); TOTAL PROTEIN 7.1 g/dL (6.3-8.2); TRIGLYCERIDES 79 mg/dL (<150)
[2019-02-23 10:06] LABS: DIRECT LDL 73 mg/dL (<100)
== END ==
LOC: OD 08:03
PROVIDERS: ATTEND Physician Assistant
DX: I10 Essential (primary) hypertension (principal); E11.9 Type 2 diabetes mellitus without complications; N92.6 Irregular menstruation, unspecified; Z68.43 Body mass index [BMI] 50.0-59.9, adult
CPT/HCPCS: 36415; 80053; 80061; 83001; 83002; 83036; 84443; 85025

== ENCOUNTER 2019-04-04 10:37 | Day surgery (SDC) | payer OTHER ==
[2019-03-26 11:45] LABS: HEMATOCRIT 38.4 % (36.0-47.0); HEMOGLOBIN 12.6 g/dL (12.0-15.5); MEAN CORPUSCULAR HEMOGLOBIN 28.9 pg (27.0-33.4); MEAN CORPUSCULAR HGB CONC 32.9 g/dL (32.0-36.0); MEAN CORPUSCULAR VOLUME 88 fl (80-97); PLATELET COUNT 434 10^3/uL (150-450); RED BLOOD COUNT 4.36 10^6/uL (3.72-5.28); RED CELL DISTRIBUTION WIDTH 13.5 % (11.5-14.0); WHITE BLOOD COUNT 9.7 10^3/uL (4.0-10.5)
[2019-03-26 11:54] LABS: APPEARANCE,URINE CLOUDY; BILIRUBIN,URINE NEGATIVE (NEGATIVE); COLOR,URINE YELLOW; GLUCOSE, URINE NEGATIVE (NEGATIVE); KETONES,URINE NEGATIVE (NEGATIVE); LEUKOCYTE ESTERASE,URINE LARGE (NEGATIVE); NITRITE,URINE NEGATIVE (NEGATIVE); PROTEIN,URINE 30 mg/dL (NEGATIVE); URIC ACID CRYSTALS,URINE FEW /HPF; URINE SPECIFIC GRAVITY 1.026; UROBILINOGEN,URINE NEGATIVE mg/dL (<2.0)
[~2019-04-04 10:37] MED LIST: LACTATED RINGERS 1000 ML IV PRN; LIDOCAINE 0.5% INJ-PF (5 MG/ML) 50 ML SDV SUBCUT PRN
[2019-04-04] MEDS ORDERED: PROPOFOL INJ 200 MG/20 ML VIAL IV ONE ×2 (10:49→12:48)
[2019-04-04] MEDS ORDERED: MIDAZOLAM 2 MG/2 ML INJ ONE (10:49)
[2019-04-04] MEDS ORDERED: FENTANYL CITRATE INJ/PF 100 MCG/2 ML AMPUL ONE ×2 (10:49→12:43)
[2019-04-04] MEDS: ONDANSETRON HCL INJ/PF 4 MG/2 ML SDV ONE ×2 (11:45→11:47)
[2019-04-04] MEDS: SCOPOLAMINE HYDROBROMIDE 1.5 MG PATCH.TD72 ONE ×2 (11:45→11:49)
[2019-04-04] MEDS ORDERED: DEXAMETHASONE SOD PHOSPHATE INJ 4 MG/1 ML VIAL ONE (11:46)
[2019-04-04] MEDS ORDERED: ONDANSETRON HCL INJ/PF 4 MG/2 ML SDV ONE (11:46)
[2019-04-04] MEDS ORDERED: KETOROLAC TROMETHAMINE 60 MG/2 ML SDV ONE (11:46)
[2019-04-04] MEDS ORDERED: DIPHENHYDRAMINE HCL 50 MG/ML VIAL IV PRN (11:48)
[2019-04-04] MEDS ORDERED: ONDANSETRON HCL INJ/PF 4 MG/2 ML SDV IV PRN (11:48)
[2019-04-04] MEDS ORDERED: FENTANYL CITRATE INJ/PF 100 MCG/2 ML AMPUL IV PRN ×3 (11:48)
[2019-04-04] MEDS ORDERED: OXYCODONE-ACETAMINOPHEN 5-325 MG TABLET PO PRN ×4 (11:48→12:50)
[2019-04-04] MEDS ORDERED: MORPHINE SULFATE 10 MG/ML INJ IV PRN (11:48)
[2019-04-04] MEDS ORDERED: MEPERIDINE HCL/PF INJ 25 MG/1 ML DISP.SYRIN IV PRN (11:48)
[2019-04-04] MEDS ORDERED: RINGERS SOLUTION,LACTATED 1,000 ML IV PRN (12:50)
[2019-04-04] MEDS ORDERED: KETOROLAC TROMETHAMINE INJ/PF 30 MG/1 ML SDV IV PRN (12:50)
[2019-04-04] MEDS ORDERED: IBUPROFEN 800 MG TABLET PO PRN (12:50)
--- NOTE | 2019-04-04 12:59 | Operative Report ---
Operative Report DATE OF SURGERY: 04/04/19 PREOPERATIVE DIAGNOSIS: Menorrhagia POSTOPERATIVE DIAGNOSIS: Same OPERATION: D&C hysteroscopy with NovaSure ablation SURGEON: NATHEN CHUNG ANESTHESIA: GA TISSUE REMOVED OR ALTERED: Uterine cavity COMPLICATIONS: None ESTIMATED BLOOD LOSS: Minimal INTRAOPERATIVE FINDINGS: Uterine cavity sounded to 8 cm cm before and after the case. She has a cervical laceration from a previous cerclage noted. The measurements for the ablation included a uterine cavity of 5 cm and a width of 3-1/2 cm. PROCEDURE: Patient was taken the OR and placed in supine position. Anesthesia was induced. She is placed in a dorsolithotomy position using Julio C stirrups. Her perineum and vagina were prepared and draped in sterile fashion. Due to her girth pelvic exam was challenging. The longest speculum was used and the cervix was grasped with a tenaculum. As stated before she has a cervical laceration from her previous cerclage. The cervix was sounded to 8 cm before and after the case. The hysteroscope was inserted and there was quite a bit of bleeding in the uterine cavity making visualization very challenging. Her previous office biopsy showed membranes however she had a negative test both by urine and blood. Ultrasound does not show any evidence of . The sharp curettage was completed and all tissue was sent for specimen. Next the NovaSure ablation device was placed. The device was tested and passed on the first attempt. The device was then fired. The ablation lasted 2 minutes. All instruments were withdrawn at the end of the case. A repeat hysteroscope showed a well ablated uterine cavity. All instruments were removed. She is placed back in supine position and taken to recovery room in stable condition.
--- NOTE | 2019-04-04 13:03 | Discharge Summary ---
Discharge Summary (SDC) - Discharge Final Diagnosis: Heavy menses Date of Surgery: 04/04/19 Condition: Good Prescriptions: Oxycodone HCl/Acetaminophen [Percocet 5-325 mg Tablet] 1 tab PO Q4HP PRN #14 tablet PRN Reason: Referrals: ISAAK MONTANEZ PA [Primary Care Provider] -
[2019-04-04 15:25] VITALS: BP 131/80
== END 2019-04-04 15:20 | disposition home or self-care (01) ==
LOC: OROUT 10:37
PROVIDERS: ATTEND Obstetrics & Gynecology
DX: N84.0 Polyp of corpus uteri (principal); N92.1 Excessive and frequent menstruation with irregular cycle; I10 Essential (primary) hypertension; E11.9 Type 2 diabetes mellitus without complications; J45.909 Unspecified asthma, uncomplicated; Z87.891 Personal history of nicotine dependence; Z79.899 Other long term (current) drug therapy; Z79.01 Long term (current) use of anticoagulants
CPT/HCPCS: 36415; 82962; 85027; 81025; 81001; 88305 ×2; 58563; J2250; J1100; J1885; J3010; J2405; J2704; 952

== ENCOUNTER 2019-06-12 15:30 | Emergency (ER) | payer OTHER ==
--- NOTE | 2019-06-12 17:00 | ER Document Report ---
ED Medical Screen (RME) - General Chief Complaint: Chest Pain Stated Complaint: CHEST PAIN Time Seen by Provider: 06/12/19 16:57 Primary Care Provider: ISAAK WILDER PA-C [Primary Care Provider] - Follow up as needed Mode of Arrival: Ambulatory Information source: Patient Notes: 43-year-old female presented to ED for chest pain in the center of her chest since Monday. States it is been pretty constant since Monday. She states now the first time she has been to the doctor since this started on Monday. She does have a history of A. fib high blood pressure cholesterol and diabetes. She states she has had similar pain in the past and everything came back negative. She states that her doctor told her that if she had pain again to cannot wait it out and see if she can wait that she get into her obiee lead developer. She states that she has an appointment next week so she was going to try to wait that she could go to her appointment both all of her family first natter and the pain continued and she came to the emergency room. He states she does not smoke she does drink once or twice a month and does not do any drugs street drugs. We will get all the blood work except on IV taking some aspirin I have greeted and performed a rapid initial assessment of this patient. A comprehensive ED assessment and evaluation of the patient, analysis of test r esults and completion of medical decision making process will be conducted by an additional ED providers. TRAVEL OUTSIDE OF THE [place] IN LAST 30 DAYS: No - Related Data Allergies/Adverse Reactions: nalbuphine [From Nubain] Adverse Reaction (Severe, Verified 06/12/19 16:56) Hallucinations Past Medical History - Past Medical History Cardiac Medical History: Reports: Hx Hypertension - medicated Denies: Hx Atrial Fibrillation, Hx Coronary Artery Disease, Hx DVT, Hx Heart Attack, Hx Pulmonary Embolism Pulmonary Medical History: Reports: Hx Asthma - seasonal allergies can cause wheezing., Hx Sleep Apnea Denies: Hx Bronchitis, Hx COPD, Hx Pneumonia Neurological Medical History: Denies: Hx Cerebrovascular Accident, Hx Seizures Endocrine Medical History: Denies: Hx Diabetes Mellitus Type 1, Hx Diabetes Mellitus Type 2, Hx Hyperthyroidism, Hx Hypothyroidism Renal/ Medical History: Denies: Hx Peritoneal Dialysis GI Medical History: Denies: Hx Cirrhosis, Hx Crohn's Disease, Hx Gastroesophageal Reflux Disease, Hx Hepatitis, Hx Hiatal Hernia, Hx Ulcer, Hx Ulcerative Colitis Musculoskeltal Medical History: Denies Hx Arthritis, Denies Hx Fibromyalgia Skin Medical History: Denies Hx Eczema, Denies Hx Psoriasis Psychiatric Medical History: Denies: Hx Depression Infectious Medical History: Denies: Hx Hepatitis Past Surgical History: Reports: Hx Section - x2, September 16, 2016, Hx Cholecystectomy, Hx Myringotomy. Denies: Hx Hysterectomy, Hx Mastectomy, Hx Open Heart Surgery, Hx Pacemaker - Immunizations Hx Diphtheria, Pertussis, Tetanus Vaccination: Yes Physical Exam - Vital signs Vitals: Temp Pulse Resp BP Pulse Ox 98.8 F 89 16 141/82 H 97 06/12/19 16:46 06/12/19 16:46 06/12/19 16:46 06/12/19 16:46 06/12/19 16:46 Course - Vital Signs Vital signs: Temp Pulse Resp BP Pulse Ox 98.8 F 89 16 141/82 H 97 06/12/19 16:46 06/12/19 16:46 06/12/19 16:46 06/12/19 16:46 06/12/19 16:46 Doctor's Discharge - Discharge Referrals: ISAAK WILDER PA-C [Primary Care Provider] - Follow up as needed
[2019-06-12] MEDS ORDERED: ASPIRIN 81 MG TABLET, CHEWABLE PO ONE (17:01)
--- NOTE | 2019-06-12 17:42 | RADIOLOGY REPORT (SQ) ---
EXAM DESCRIPTION: CHEST 2 VIEWS COMPLETED DATE/TIME: 06/12/2019 5:14 pm REASON FOR STUDY: Chest pain COMPARISON: 2019 TECHNIQUE: Frontal and lateral radiographic views of the chest acquired. NUMBER OF VIEWS: Two view. LIMITATIONS: None. FINDINGS: LUNGS AND PLEURA: No opacities, masses or pneumothorax. No pleural effusion. MEDIASTINUM AND HILAR STRUCTURES: No masses or contour abnormalities. HEART AND VASCULAR STRUCTURES: Heart normal size. No evidence for failure. BONES: No acute findings. HARDWARE: None in the chest. OTHER: No other significant finding. IMPRESSION: NO SIGNIFICANT RADIOGRAPHIC FINDING IN THE CHEST. TECHNICAL DOCUMENTATION: JOB ID: [id number] [employer]- All Rights Reserved Reading location - IP/workstation name: [email or web address]
[2019-06-12 17:56] LABS: ABSOLUTE BASOPHILS # (AUTO) 0.1 10^3/uL (0.0-0.2); ABSOLUTE EOSINOPHILS # (AUTO) 0.1 10^3/uL (0.0-0.6); ABSOLUTE LYMPHOCYTES (AUTO) 2.9 10^3/uL (0.5-4.7); ABSOLUTE MONOCYTES (AUTO) 0.8 10^3/uL (0.1-1.4); ABSOLUTE NEUT (AUTO) 6.1 10^3/uL (1.7-8.2); BASOPHILS % (AUTO) 1.1 % (0-2); EOSINOPHILS % (AUTO) 0.8 % (0-6); HEMATOCRIT 38.4 % (36.0-47.0); HEMOGLOBIN 12.9 g/dL (12.0-15.5); LYMPHOCYTES % (AUTO) 29.4 % (13-45); MEAN CORPUSCULAR HEMOGLOBIN 29.5 pg (27.0-33.4); MEAN CORPUSCULAR HGB CONC 33.6 g/dL (32.0-36.0); MEAN CORPUSCULAR VOLUME 88 fl (80-97); MONOCYTES % (AUTO) 7.7 % (3-13); PLATELET COUNT 434 10^3/uL (150-450); RED BLOOD COUNT 4.37 10^6/uL (3.72-5.28); RED CELL DISTRIBUTION WIDTH 13.7 % (11.5-14.0); TOTAL CELLS COUNTED % (AUTO) 100 %
[2019-06-12 18:12] LABS: ALBUMIN 3.8 g/dL (3.5-5.0); ALKALINE PHOSPHATASE 70 U/L (38-126); ANION GAP 10 (5-19); ASPARTATE AMINO TRANSFERASE 16 U/L (14-36); BILIRUBIN,DIRECT 0.3 mg/dL (0.0-0.4); BILIRUBIN,TOTAL 0.4 mg/dL (0.2-1.3); BLOOD UREA NITROGEN 15 mg/dL (7-20); CALCIUM 9.1 mg/dL (8.4-10.2); CARBON DIOXIDE 27 mmol/L (22-30); CHLORIDE 101 mmol/L (98-107); GLUCOSE 88 mg/dL (75-110); POTASSIUM 4.1 mmol/L (3.6-5.0); TOTAL PROTEIN 7.4 g/dL (6.3-8.2)
--- NOTE | 2019-06-12 18:25 | ER Document Report ---
ED General - General Chief Complaint: Chest Pain Stated Complaint: CHEST PAIN Time Seen by Provider: 06/12/19 16:57 Primary Care Provider: ISAAK WILDER PA-C [Primary Care Provider] - Follow up as needed Mode of Arrival: Ambulatory Information source: Patient Notes: per triage report pt reports chest pain to the center of her chest. states hx of afib htn high ch olesterol dm. reports pain started on monday. states pain has been pretty constant since monday. states has appt with cardio next week. pt is alert and oriented. resp are even and unlabored. 43-year-old black female arrives with her with chief complaint of having 5-day history of right temporal headache; she denies any neck pain nuchal rigidity fever chills cough or cold runny nose. Patient has a headache on right side not associated with sinus problems or sore throat. She has sotalol and Eliquis as her medications per Dr. Vo hammer smith. She also has had 2 years ago October 10 disc with screws and plates anterior approach left carotid area with keloid scar developing and this has been treated by Dr. Maria with steroid shots every 6 months. 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 TRAVEL OUTSIDE OF THE [place] IN LAST 30 DAYS: No - HPI Onset/Duration: Sudden - Related Data Allergies/Adverse Reactions: nalbuphine [From Nubain] Adverse Reaction (Severe, Verified 06/12/19 16:56) Hallucinations Home Medications: htn high cholesterol dm. asa Past Medical History - General Information source: Patient - Social History Smoking Status: Never Smoker Cigarette use (# per day): No Chew tobacco use (# tins/day): No Smoking Education Provided: No Frequency of alcohol use: Occasional Drug Abuse: None Lives with: Family Family History: CAD, DM, Hypertension, Malignancy, Other - Asthma Patient has suicidal ideation: No Patient has homicidal ideation: No - Past Medical History Cardiac Medical History: Reports: Hx Hypertension - medicated Denies: Hx Atrial Fibrillation, Hx Coronary Artery Disease, Hx DVT, Hx Heart Attack, Hx Pulmonary Embolism Pulmonary Medical History: Reports: Hx Asthma - seasonal allergies can cause wheezing., Hx Sleep Apnea Denies: Hx Bronchitis, Hx COPD, Hx Pneumonia Neurological Medical History: Denies: Hx Cerebrovascular Accident, Hx Seizures Endocrine Medical History: Denies: Hx Diabetes Mellitus Type 1, Hx Diabetes Mellitus Type 2, Hx Hyperthyroidism, Hx Hypothyroidism Renal/ Medical History: Denies: Hx Peritoneal Dialysis GI Medical History: Denies: Hx Cirrhosis, Hx Crohn's Disease, Hx Gastroesophageal Reflux Disease, Hx Hepatitis, Hx Hiatal Hernia, Hx Ulcer, Hx Ulcerative Colitis Musculoskeletal Medical History: Denies Hx Arthritis, Denies Hx Fibromyalgia Skin Medical History: Denies Hx Eczema, Denies Hx Psoriasis Psychiatric Medical History: Denies: Hx Depression Infectious Medical History: Denies: Hx Hepatitis Past Surgical History: Reports: Hx Section - x2, September 16, 2016, Hx Cholecystectomy, Hx Myringotomy. Denies: Hx Hysterectomy, Hx Mastectomy, Hx Open Heart Surgery, Hx Pacemaker - Immunizations Hx Diphtheria, Pertussis, Tetanus Vaccination: Yes Review of Systems - Review of Systems Constitutional: No symptoms reported EENT: No symptoms reported Cardiovascular: No symptoms reported Respiratory: No symptoms reported Gastrointestinal: No symptoms reported Genitourinary: No symptoms reported Female Genitourinary: No symptoms reported Musculoskeletal: No symptoms reported Skin: No symptoms reported Hematologic/Lymphatic: No symptoms reported Neurological/Psychological: No symptoms reported Physical Exam - Vital signs Vitals: Temp Pulse Resp BP Pulse Ox 98.8 F 89 16 141/82 H 97 06/12/19 16:46 06/12/19 16:46 06/12/19 16:46 06/12/19 16:46 06/12/19 16:46 Interpretation: Normal - HEENT Head: Normocephalic Eyes: Normal Conjunctiva: Normal Cornea: Normal Extraocular movements intact: Yes Eyelashes: Normal Pupils: PERRL Mouth/Lips: Normal Mucous membranes: Normal Pharynx: Normal Neck: Normal - Respiratory Respiratory status: No respiratory distress Chest status: Nontender Breath sounds: Normal Chest palpation: Normal - Cardiovascular Rhythm: Regular Heart sounds: Normal auscultation Murmur: No Friction rub: No Sonido's crunch: No - Abdominal Inspection: Normal Distension: No distension Bowel sounds: Normal Tenderness: Nontender Organomegaly: No organomegaly - Back Back: Normal - Extremities General upper extremity: Normal inspection General lower extremity: Normal inspection - Neurological Neuro grossly intact: Yes Cognition: Normal Orientation: AAOx4 Muir Coma Scale Eye Opening: Spontaneous Jazmyn Coma Scale Verbal: Oriented Jazmyn Coma Scale Motor: Obeys Commands Muir Coma Scale Total: 15 Speech: Normal Cranial nerves: Normal Cerebellar coordination: Normal Motor strength normal: LUE, RUE, LLE, RLE - Psychological Associated symptoms: Normal affect - Skin Skin Temperature: Warm Skin Moisture: Dry Course - Vital Signs Vital signs: Temp Pulse Resp BP Pulse Ox 98.8 F 89 16 141/82 H 97 06/12/19 16:46 06/12/19 16:46 06/12/19 16:46 06/12/19 16:46 06/12/19 16:46 - Laboratory Result Diagrams: 06/12/19 17:37 06/12/19 17:37 - Diagnostic Test Radiology reviewed: Reports reviewed Radiology results interpreted by me: 06/12/19 21: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 Vo and he advises following up in the office Discharge - Discharge Clinical Impression: Chest pain at rest, Right temporal headache Condition: Good Disposition: HOME, SELF-CARE Additional Instructions: Follow-up with Dr. Vo in office and return to ER as needed off school as directed continue with current medicines Forms: Return to Work Referrals: ISAAK WILDER PA-C [Primary Care Provider] - Follow up as needed
--- NOTE | 2019-06-12 18:40 | EKG REPORT ---
SEVERITY:- BORDERLINE ECG - SINUS RHYTHM BORDERLINE T WAVE ABNORMALITIES : Confirmed by: Mane Maldonado MD 12-Jun-2019 18:39:05
[2019-06-12 19:23] LABS: INTERNATIONAL RATION (INR) 1.07; PROTHROMBIN TIME 13.9 SEC (11.4-15.4)
[2019-06-12 19:24] LABS: PARTIAL THROMBOPLASTIN TIME 30.1 SEC (23.5-35.8)
--- NOTE | 2019-06-12 20:58 | RADIOLOGY REPORT (SQ) ---
EXAM DESCRIPTION: CT HEAD WITHOUT IV CONTRAST COMPLETED DATE/TME: 06/12/2019 19:01 CLINICAL HISTORY: 43 years Female mejia right temp COMPARISON: 01/26/2019. TECHNIQUE: Contiguous axial CT images obtained through the brain without IV contrast. This exam was performed according to our department optimization program which includes automated exposure control, adjustment of the mA and/or kv according to patient size and/or use of iterative reconstruction technique. FINDINGS: The ventricles and sulci are within normal limits for the patient's age. No midline shift or mass effect. Small focus of calcification along the anterior aspect of the left middle cranial fossa could reflect a small calcified sessile meningioma No acute intracranial hemorrhage. No fluid or significant mucosal thickening in the visualized paranasal sinuses. No depressed calvarial fractures. IMPRESSION: No acute intracranial abnormality is identified. Focus of calcification along the anterior aspect of the left middle cranial fossa may reflect a small sessile meningioma
[2019-06-12 21:57] VITALS: BP 133/95
== END 2019-06-12 21:58 | disposition home or self-care (01) ==
LOC: ER 15:30
DX: R07.9 Chest pain, unspecified (principal); R51 Headache; D32.9 Benign neoplasm of meninges, unspecified; I10 Essential (primary) hypertension; E78.00 Pure hypercholesterolemia, unspecified; E11.9 Type 2 diabetes mellitus without complications; I48.91 Unspecified atrial fibrillation; Z79.01 Long term (current) use of anticoagulants; Z79.899 Other long term (current) drug therapy; Z79.82 Long term (current) use of aspirin
CPT/HCPCS: 36415; 70450; 71046; 80053; 84443; 84484; 85025; 85610; 85730; 93005; 93010; 99291; 99292

== ENCOUNTER → 2019-09-04 | Outpatient (CLI) | payer OTHER ==
[2019-09-04 08:15] LABS: ABSOLUTE BASOPHILS # (AUTO) 0.1 10^3/uL (0.0-0.2); ABSOLUTE EOSINOPHILS # (AUTO) 0.2 10^3/uL (0.0-0.6); ABSOLUTE LYMPHOCYTES (AUTO) 2.2 10^3/uL (0.5-4.7); ABSOLUTE MONOCYTES (AUTO) 0.5 10^3/uL (0.1-1.4); ABSOLUTE NEUT (AUTO) 5.5 10^3/uL (1.7-8.2); EOSINOPHILS % (AUTO) 2.7 % (0-6); HEMATOCRIT 39.3 % (36.0-47.0); LYMPHOCYTES % (AUTO) 25.9 % (13-45); MEAN CORPUSCULAR HEMOGLOBIN 28.6 pg (27.0-33.4); MEAN CORPUSCULAR HGB CONC 33.1 g/dL (32.0-36.0); MEAN CORPUSCULAR VOLUME 87 fl (80-97); MONOCYTES % (AUTO) 6.1 % (3-13); PLATELET COUNT 364 10^3/uL (150-450); RED BLOOD COUNT 4.53 10^6/uL (3.72-5.28); RED CELL DISTRIBUTION WIDTH 13.5 % (11.5-14.0); SEGMENTED NEUTROPHILS % (AUTO) 64.3 % (42-78); TOTAL CELLS COUNTED % (AUTO) 100 %; WHITE BLOOD COUNT 8.6 10^3/uL (4.0-10.5)
[2019-09-04 08:41] LABS: ALBUMIN 3.8 g/dL (3.5-5.0); ALKALINE PHOSPHATASE 56 U/L (38-126); ANION GAP 8 (5-19); ASPARTATE AMINO TRANSFERASE 16 U/L (14-36); BILIRUBIN,DIRECT 0.1 mg/dL (0.0-0.4); BILIRUBIN,TOTAL 0.6 mg/dL (0.2-1.3); BLOOD UREA NITROGEN 13 mg/dL (7-20); CALCIUM 9.1 mg/dL (8.4-10.2); CARBON DIOXIDE 30 mmol/L (22-30); CHLORIDE 99 mmol/L (98-107); GLUCOSE 109 mg/dL (75-110); POTASSIUM 4.3 mmol/L (3.6-5.0); TOTAL PROTEIN 6.9 g/dL (6.3-8.2)
--- NOTE | 2019-09-04 12:05 | RADIOLOGY REPORT (SQ) ---
EXAM DESCRIPTION: CHEST PA/LATERAL IMAGES COMPLETED DATE/TIME: 09/04/2019 7:59 am REASON FOR STUDY: MORBID (SEVERE) OBESITY DUE TO EXCESS CALORIES COMPARISON: PA and lateral views of the chest from 06/12/2019. EXAM PARAMETERS: NUMBER OF VIEWS: Two views. TECHNIQUE: PA and lateral views of the chest were obtained. RADIATION DOSE: NA. LIMITATIONS: None. FINDINGS: LUNGS AND PLEURA: No consolidation, pleural effusion or pneumothorax. MEDIASTINUM AND HILAR STRUCTURES: No mediastinal or hilar contour abnormality. HEART AND VASCULAR STRUCTURES: The cardiac silhouette and pulmonary vasculature are within normal jara its. BONES: No acute findings. HARDWARE: Cholecystectomy clips and ACDF hardware. OTHER: No other finding. IMPRESSION: No acute cardiopulmonary process. TECHNICAL DOCUMENTATION: JOB ID: [id number] 2010 [employer]- All Rights Reserved Reading location - IP/workstation name: [email or web address]
--- NOTE | 2019-09-04 19:29 | EKG REPORT ---
SEVERITY:- BORDERLINE ECG - SINUS RHYTHM BORDERLINE T ABNORMALITIES, INFERIOR LEADS : Confirmed by: Mane Maldonado MD 04-Sep-2019 19:28:28
== END ==
LOC: OD 07:30
PROVIDERS: ATTEND Surgery
DX: E66.01 Morbid (severe) obesity due to excess calories (principal)
CPT/HCPCS: 36415; 71046; 80053; 84443; 85025; 93005; 93010

== ENCOUNTER 2019-11-01 10:45 | Emergency (ER) | payer OTHER ==
--- NOTE | 2019-11-01 10:53 | ER Document Report ---
ED Medical Screen (RME) - General Chief Complaint: Nausea Stated Complaint: NAUSEA,HEADACHE Time Seen by Provider: 11/01/19 10:51 Primary Care Provider: NIKO GIORDANO [Primary Care Provider] - Follow up as needed Mode of Arrival: Ambulatory Information source: Patient Notes: 50-year-old female presented to ED for nausea and vomiting. She states it started after her gastric sleeve procedure on October 08. She states she is not vomiting at this time but she has in the past. She thinks she is very dehydrated from the procedure. She is alert oriented respirations regular nonlabored speaking in full sentences. We will get labs urine and start her on some IV fluids when she gets a room. I have greeted and performed a rapid initial assessment of this patient. A comprehensive ED assessment and evaluation of the patient, analysis of test results and completion of medical decision making process will be conducted by an additional ED providers. TRAVEL OUTSIDE OF THE [place] IN LAST 30 DAYS: No - Related Data Allergies/Adverse Reactions: nalbuphine [From Nubain] Adverse Reaction (Severe, Verified 11/01/19 10:51) Hallucinations Past Medical History - Past Medical History Cardiac Medical History: Reports: Hx Hypercholesterolemia, Hx Hypertension - medicated Denies: Hx Atrial Fibrillation, Hx Coronary Artery Disease, Hx DVT, Hx Heart Attack, Hx Pulmonary Embolism Pulmonary Medical History: Reports: Hx Asthma - seasonal allergies can cause wheezing., Hx Sleep Apnea Denies: Hx Bronchitis, Hx COPD, Hx Pneumonia Neurological Medical History: Denies: Hx Cerebrovascular Accident, Hx Seizures Endocrine Medical History: Denies: Hx Diabetes Mellitus Type 1, Hx Diabetes Mellitus Type 2, Hx Hyperthyroidism, Hx Hypothyroidism Renal/ Medical History: Denies: Hx Peritoneal Dialysis GI Medical History: Denies: Hx Cirrhosis, Hx Crohn's Disease, Hx Gastroesophageal Reflux Disease, Hx Hepatitis, Hx Hiatal Hernia, Hx Ulcer, Hx Ulcerative Colitis Musculoskeltal Medical History: Denies Hx Arthritis, Denies Hx Fibromyalgia Skin Medical History: Denies Hx Eczema, Denies Hx Psoriasis Psychiatric Medical History: Denies: Hx Depression Infectious Medical History: Denies: Hx Hepatitis Past Surgical History: Reports: Hx Section - x2, September 16, 2016, Hx Cholecystectomy, Hx Gynecologic Surgery - ablasion, Hx Myringotomy. Denies: Hx Hysterectomy, Hx Mastectomy, Hx Open Heart Surgery, Hx Pacemaker - Immunizations Hx Diphtheria, Pertussis, Tetanus Vaccination: Yes Doctor's Discharge - Discharge Referrals: NIKO GIORDANO [Primary Care Provider] - Follow up as needed
[2019-11-01] MEDS ORDERED: ONDANSETRON HCL INJ/PF 4 MG/2 ML SDV IV ONE (10:55)
[2019-11-01] MEDS ORDERED: NORMAL SALINE 1000 ML 1,000 ML IV ONE (11:08)
[2019-11-01 11:30] LABS: APPEARANCE,URINE CLOUDY; BILIRUBIN,URINE NEGATIVE (NEGATIVE); COLOR,URINE YELLOW; GLUCOSE, URINE NEGATIVE (NEGATIVE); KETONES,URINE NEGATIVE (NEGATIVE); LEUKOCYTE ESTERASE,URINE NEGATIVE (NEGATIVE); NITRITE,URINE NEGATIVE (NEGATIVE); PROTEIN,URINE 30 mg/dL (NEGATIVE); URINE SPECIFIC GRAVITY 1.012; UROBILINOGEN,URINE NEGATIVE mg/dL (<2.0)
[2019-11-01 11:32] LABS: HEMATOCRIT 40.3 % (36.0-47.0); HEMOGLOBIN 13.2 g/dL (12.0-15.5); MEAN CORPUSCULAR HEMOGLOBIN 28.5 pg (27.0-33.4); MEAN CORPUSCULAR HGB CONC 32.7 g/dL (32.0-36.0); MEAN CORPUSCULAR VOLUME 87 fl (80-97); PLATELET COUNT 429 10^3/uL (150-450); RED BLOOD COUNT 4.61 10^6/uL (3.72-5.28); RED CELL DISTRIBUTION WIDTH 14.1 % (11.5-14.0); WHITE BLOOD COUNT 6.1 10^3/uL (4.0-10.5)
[2019-11-01 11:46] LABS: ALBUMIN 4.3 g/dL (3.5-5.0); ALKALINE PHOSPHATASE 65 U/L (38-126); ANION GAP 9 (5-19); ASPARTATE AMINO TRANSFERASE 34 U/L (14-36); BILIRUBIN,DIRECT 0.2 mg/dL (0.0-0.4); BILIRUBIN,TOTAL 0.9 mg/dL (0.2-1.3); BLOOD UREA NITROGEN 23 mg/dL (7-20); CALCIUM 9.5 mg/dL (8.4-10.2); CARBON DIOXIDE 31 mmol/L (22-30); CHLORIDE 96 mmol/L (98-107); GLUCOSE 104 mg/dL (75-110); POTASSIUM 3.3 mmol/L (3.6-5.0); TOTAL PROTEIN 7.8 g/dL (6.3-8.2)
[2019-11-01 11:57] LABS: BASOPHILS % (MANUAL) 0 % (0-2); LYMPHOCYTES % (MANUAL) 35 % (13-45); SEGMENTED NEUTROPHILS % (MAN) 52 % (42-78); TOTAL CELLS COUNTED 100
[2019-11-01 11:58] LABS: ABSOLUTE LYMPHOCYTES# (MANUAL) 2.3 10^3/uL (0.5-4.7); ABSOLUTE MONOCYTES # (MANUAL) 0.5 10^3/uL (0.1-1.4); ANISOCYTOSIS SLIGHT; EOSINOPHILS % (MANUAL) 2 % (0-6); MONOCYTES % (MANUAL) 8 % (3-13); OVALOCYTES SLIGHT; PLATELET COMMENT ADEQUATE; POIKILOCYTOSIS SLIGHT
--- NOTE | 2019-11-01 12:37 | ER Document Report ---
Entered by STANLEY BRINK SCRIBE 11/01/19 1139 Acting as scribe for:DORON LOONEY MD ED GI/ - General Chief Complaint: Nausea Stated Complaint: NAUSEA,HEADACHE Time Seen by Provider: 11/01/19 10:51 Primary Care Provider: NIKO GIORDANO [ACTIVE STAFF] - Follow up as needed Mode of Arrival: Ambulatory Information source: Patient Notes: This 43-year-old female patient presents to the emergency department today with concerns of generalized weakness, dizziness, myalgias, and persistent nausea. Patient states that she has a gastric sleeve performed by Dr. Niko Giordano at [facility] on October 09, 2019. Patient reports she is supposed to consume 64 oz. of fluids daily but she is struggling with it due to persistent nausea. Patient has only vomited twice. TRAVEL OUTSIDE OF THE [place] 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 Lives with: Family Family History: Reviewed & Not Pertinent, CAD, DM, Hypertension, Malignancy, Other - Asthma Patient has homicidal ideation: No - Past Medical History Cardiac Medical History: Reports: Hx Atrial Fibrillation, Hx Hypercholesterolemia, Hx Hypertension Pulmonary Medical History: Reports: Hx Sleep Apnea Endocrine Medical History: Reports: Hx Diabetes Mellitus Type 2 GI Medical History: Reports: Hx Gastroesophageal Reflux Disease Past Surgical History: Reports: Hx Section - x2, Hx Cholecystectomy, Hx Gynecologic Surgery - ablation, Hx Myringotomy, Other - Cervical fusion with anterior approach October 08, 2018 - Immunizations Hx Diphtheria, Pertussis, Tetanus Vaccination: Yes Review of Systems - Review of Systems Constitutional: No symptoms reported EENT: No symptoms reported Cardiovascular: No symptoms reported Respiratory: No symptoms reported Gastrointestinal: See HPI, Nausea, Vomiting Genitourinary: No symptoms reported Female Genitourinary: No symptoms reported Musculoskeletal: No symptoms reported Skin: No symptoms reported Hematologic/Lymphatic: No symptoms reported Neurological/Psychological: No symptoms reported -: Yes All other systems reviewed and negative Physical Exam - Vital signs Vitals: Temp Pulse Resp BP Pulse Ox 98.6 F 99 18 116/77 99 11/01/19 10:52 11/01/19 10:52 11/01/19 10:52 11/01/19 10:52 11/01/19 10:52 - Notes Notes: Physical Exam: General: Alert, appears well. HEENT: Normocephalic. Atraumatic. PERRL. Extraocular movements intact. Oropharynx clear. Neck: Supple. Non-tender. Respiratory: No respiratory distress. Clear and equal breath sounds bilaterally. Cardiovascular: Regular rate and rhythm. Abdominal: Morbidly obese. Non-tender. No distension. Normal Bowel Sounds. Back: No gross abnormalities. Extremities: Moves all four extremities. Upper extremities: Normal inspection. Normal ROM. Lower extremities: Normal inspection. No edema. Normal ROM. Neurological: Normal cognition. AAOx4. Normal speech. Psychological: Normal affect. Normal Mood. Skin: Warm. Dry. Normal color. Course - Re-evaluation Re-evalutation: 11/01/19 16:10 The patient reports her nauseousness cleared up after the Zofran. She has Zofran at home but has not been taking it. She does know she is supposed to drink more water than what she has been doing. I reviewed lab work with her and showed her how her potassium was low and her creatinine was elevated. She understands the need to increase potassium in her diet and to increase fluid intake. She was given a copy of the Chem-12 and encouraged to follow-up with her surgeon if the nausea issue continues. - Vital Signs Vital signs: Temp Pulse Resp BP Pulse Ox 98.6 F 99 18 116/77 99 11/01/19 10:52 11/01/19 10:52 11/01/19 10:52 11/01/19 10:52 11/01/19 10:52 - Laboratory Result Diagrams: 11/01/19 11:05 11/01/19 11:05 Laboratory results interpreted by me: 11/01/19 11/01/19 11/01/19 11:05 11:05 11:05 RDW 14.1 H Sodium 136.2 L Potassium 3.3 L Chloride 96 L Carbon Dioxide 31 H BUN 23 H Creatinine 2.01 H Est GFR ( Amer) 33 L Est GFR (MDRD) Non-Af 27 L Urine Protein 30 H Urine Blood SMALL H - EKG Interpretation by Me EKG shows normal: Sinus rhythm, [place], Intervals, QRS Complexes, ST-T Waves Rate: Normal - 75 Rhythm: NSR Discharge - Discharge Clinical Impression: Chronic nausea, Hypokalemia, Dehydration Acute renal failure Qualifiers: Acute renal failure type: unspecified Qualified Code(s): N17.9 - Acute kidney failure, unspecified Condition: Stable Disposition: HOME, SELF-CARE Additional Instructions: Hypokalemia You have an abnormally decreased level of serum potassium. Hypokalemia may cause weakness, fatigue, or heart rhythm abnormalities. Sometimes there are no symptoms at all. Usually, low serum potassium is due to taking diuretics (water pills). It can also be due to excessive vomiting or diarrhea. If no obvious cause is evident, further evaluation will be necessary. Treatment is usually oral potassium supplements. Take these exactly as prescribed. You may also want to select foods which are naturally high in potassium -- fruits (such as bananas, cantaloupe, grapes, oranges, prunes, tomatoes), fresh vegetables (potatoes, spinach, beans, peas), orange or tomato juice, tomato pasta sauce, milk, fish (halibut, tuna, salmon, aaron) A follow-up blood test is usually performed to assure that the potassium is returning to normal. Call the physician if you suffer severe weakness, muscle twitching or cramping, palpitations (pounding or irregular heartbeat), or any other new or alarming symptoms. Dehydration with Renal Insufficiency: You have not been drinking nearly enough fluids, and your kidneys are being injured because of this. It is critical that you increase your fluid intake. Take the Zofran you have at home to help with nauseousness if needed. Be sure you are increasing the potassium in your diet for the next week. Follow-up with your primary care provider or your surgeon next week to repeat your blood chemistries to be sure your potassium is correcting, and your kidney function is returning to baseline. RETURN TO THE EMERGENCY ROOM IF ANY NEW OR WORSENING SYMPTOMS. Referrals: NIKO GIORDANO [ACTIVE STAFF] - Follow up as needed I personally performed the services described in the documentation, reviewed and edited the documentation which was dictated to the scribe in my presence, and it accurately records my words and actions.
[2019-11-01] MEDS ORDERED: RINGERS SOLUTION,LACTATED 1,000 ML IV ONE (13:10)
[2019-11-01 16:28] VITALS: BP 116/69
--- NOTE | 2019-11-02 10:24 | EKG REPORT ---
SEVERITY:- BORDERLINE ECG - SINUS RHYTHM BORDERLINE T ABNORMALITIES, INFERIOR LEADS : Confirmed by: Kimberley Lopez 02-Nov-2019 10:22:34
== END 2019-11-01 16:26 | disposition home or self-care (01) ==
LOC: ER 10:45
DX: E87.6 Hypokalemia (principal); E86.0 Dehydration; N17.9 Acute kidney failure, unspecified; R11.2 Nausea with vomiting, unspecified; R51 Headache; R53.1 Weakness; M79.10 Myalgia, unspecified site; Z88.8 Allergy status to other drugs, medicaments and biological substances; I48.91 Unspecified atrial fibrillation; I10 Essential (primary) hypertension; E11.9 Type 2 diabetes mellitus without complications
CPT/HCPCS: 93005; 99283; 96361; 96374; 36415; 87086; 82550; 84702; 83690; 85025; 80053; 81001; 93010; J2405; J7030; J7120

== ENCOUNTER → 2020-03-07 | Outpatient (CLI) | payer OTHER ==
--- NOTE | 2020-03-07 09:48 | RADIOLOGY REPORT (SQ) ---
EXAM DESCRIPTION: CHEST 2 VIEWS IMAGES COMPLETED DATE/TIME: 03/07/2020 9:24 am REASON FOR STUDY: PREOP COMPARISON: None. EXAM PARAMETERS: NUMBER OF VIEWS: two views TECHNIQUE: Digital Frontal and Lateral radiographic views of the chest acquired. RADIATION DOSE: NA LIMITATIONS: none FINDINGS: LUNGS AND PLEURA: No opacities, masses or pneumothorax. No pleural effusion. MEDIASTINUM AND HILAR STRUCTURES: No masses or contour abnormalities. HEART AND VASCULAR STRUCTURES: Heart normal size. No evidence for failure. BONES: No acute findings. HARDWARE: None in the chest. OTHER: No other significant finding. IMPRESSION: NO ACUTE RADIOGRAPHIC FINDING IN THE CHEST. TECHNICAL DOCUMENTATION: JOB ID: [id number] 2010 [email or web address]- All Rights Reserved Reading location - IP/workstation name: [email or web address]
== END ==
LOC: RAD 09:04
PROVIDERS: ATTEND Orthopaedic Surgery
DX: Z01.810 Encounter for preprocedural cardiovascular examination (principal); Z01.811 Encounter for preprocedural respiratory examination; I10 Essential (primary) hypertension; I48.91 Unspecified atrial fibrillation; J45.909 Unspecified asthma, uncomplicated; E11.9 Type 2 diabetes mellitus without complications; M77.8 Other enthesopathies, not elsewhere classified
CPT/HCPCS: 71046

== ENCOUNTER → 2020-03-07 | Outpatient (CLI) | payer OTHER ==
[2020-03-07 10:04] LABS: ABSOLUTE BASOPHILS # (AUTO) 0.1 10^3/uL (0.0-0.2); ABSOLUTE EOSINOPHILS # (AUTO) 0.3 10^3/uL (0.0-0.6); ABSOLUTE LYMPHOCYTES (AUTO) 2.2 10^3/uL (0.5-4.7); ABSOLUTE MONOCYTES (AUTO) 0.3 10^3/uL (0.1-1.4); ABSOLUTE NEUT (AUTO) 2.9 10^3/uL (1.7-8.2); BASOPHILS % (AUTO) 1.2 % (0-2); EOSINOPHILS % (AUTO) 5.3 % (0-6); HEMATOCRIT 37.6 % (36.0-47.0); HEMOGLOBIN 12.4 g/dL (12.0-15.5); LYMPHOCYTES % (AUTO) 37.6 % (13-45); MEAN CORPUSCULAR VOLUME 91 fl (80-97); MONOCYTES % (AUTO) 6.1 % (3-13); PLATELET COUNT 365 10^3/uL (150-450); RED BLOOD COUNT 4.14 10^6/uL (3.72-5.28); RED CELL DISTRIBUTION WIDTH 13.4 % (11.5-14.0); SEGMENTED NEUTROPHILS % (AUTO) 49.8 % (42-78); TOTAL CELLS COUNTED % (AUTO) 100 %; WHITE BLOOD COUNT 5.7 10^3/uL (4.0-10.5)
[2020-03-07 10:17] LABS: INTERNATIONAL RATION (INR) 1.13; PARTIAL THROMBOPLASTIN TIME 33.5 SEC (23.5-35.8); PROTHROMBIN TIME 14.7 SEC (11.4-15.4)
[2020-03-07 10:33] LABS: ANION GAP 9 (5-19); BLOOD UREA NITROGEN 9 mg/dL (7-20); CALCIUM 9.4 mg/dL (8.4-10.2); CARBON DIOXIDE 30 mmol/L (22-30); CHLORIDE 103 mmol/L (98-107); GLUCOSE 94 mg/dL (75-110); POTASSIUM 3.6 mmol/L (3.6-5.0)
--- NOTE | 2020-03-07 11:54 | EKG REPORT ---
SEVERITY:- BORDERLINE ECG - SINUS RHYTHM BORDERLINE T ABNORMALITIES, DIFFUSE LEADS : Confirmed by: Mane Maldonado MD 07-Mar-2020 11:53:50
== END ==
LOC: OD 08:23
PROVIDERS: ATTEND Orthopaedic Surgery
DX: Z01.812 Encounter for preprocedural laboratory examination (principal); E11.9 Type 2 diabetes mellitus without complications; I10 Essential (primary) hypertension; Z79.01 Long term (current) use of anticoagulants; J45.909 Unspecified asthma, uncomplicated; M77.8 Other enthesopathies, not elsewhere classified
CPT/HCPCS: 36415; 80048; 83036; 85025; 85610; 85730; 93005; 93010